=== PATIENT | female | born 1975 | race American Indian/Alaskan Native ===

== ENCOUNTER 2018-10-22 16:21 | Inpatient (IN) | payer MEDICAID, OTHER ==
[2018-10-22] MEDS ORDERED: ZOFRAN IV ONE ×2 (17:36→22:01)
[2018-10-22] MEDS ORDERED: DILAUDID IV ONE ×2 (17:36→22:01)
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
[2018-10-22] MEDS ORDERED: NACL 0.9% 1000 ML 1,000 ML IV ONE (17:51)
[2018-10-22 17:54] LABS: Basophils # (Auto) 0.1 K/mm3 (0.0-0.1); Basophils % (Auto) 0.6 % (0.0-1.8); Eosinophils # (Auto) 0.3 K/mm3 (0.0-0.4); Eosinophils % (Auto) 3.3 % (0.0-4.3); Hematocrit 27.5 % (30.3-42.9); Hemoglobin 8.8 gm/dl (10.1-14.3); Lymphocytes # (Auto) 0.9 K/mm3 (1.2-5.4); Lymphocytes % (Auto) 8.9 % (13.4-35.0); Mean Corpuscular HGB Conc 32 % (30-34); Mean Corpuscular Volume 85 fl (79-97); Monocytes % (Auto) 9.6 % (0.0-7.3); Platelet Count 282 K/mm3 (140-440); Red Blood Count 3.24 M/mm3 (3.65-5.03)
[2018-10-22 18:05] LABS: Alanine Aminotransferase 9 units/L (7-56); Albumin 3.3 g/dL (3.9-5); BUN/Creatinine Ratio 20; Blood Urea Nitrogen 20 mg/dL (7-17); Calcium 9.3 mg/dL (8.4-10.2); Hemolysis Index 4
[2018-10-22 19:32] LABS: Bacteria,Urine 1+ /HPF (Negative); Bilirubin,Urine NEG (Negative); Blood,Urine NEG (Negative); Color,Urine Yellow (Yellow); Mucus,Urine FEW /HPF; Urobilinogen,Urine < 2.0 mg/dL (<2.0)
[2018-10-22] MEDS ORDERED: LEVAQUIN 750MG/150ML 750 MG/150 ML BAG IV ONE (19:38)
--- NOTE | 2018-10-22 20:35 | Cat Scan Report ---
FINAL REPORT EXAM: CT ABDOMEN PELVIS W CON HISTORY: s/p colostomy, cholecystostomy tube. PT WENT IN FOR HYST ANOTHER HOSPITAL, WHILE IN [place], FOU ND LESIONS ON COLON AND PERFORATED HER BOWEL REMOVING. DIDN'T GET HYST. BECAME SEPTIC AND HAD TO GET COLOSTOMY. STILL HAVING ABD PAIN. UNABLE TO TOLERATE PO CONTRAST. TECHNIQUE: CT abdomen and pelvis with intravenous contrast PRIORS: None. FINDINGS: There is left pleural fluid collection. There is some pleural thickening and enhancement present find ings suggest empyema. There is adjacent streaky opacity within the left lower lobe. No acute abnormality identified within the liver spleen or pancreas. There is a surgical drain in the right upper quadrant distal end in the region of the gallbladder fossa. Kidneys demonstrate symmetric contrast enhancement. The adrenal glands are unremarkable there is a ri ght lower quadrant colostomy present No evidence for colonic or small bowel distention There is midline abdominal surgical scar. Within the subcutaneous tissues extending to the peritoneal margin there is a intermediate density collection and small bubbles of air suggestive of abscess. Th ere is adjacent subcutaneous stranding collection extends from the mid to upper abdominal wall to the infraumbilical area measuring 16.1 by 2.8 by 4.1 centimeters. Urinary bladder is unremarkable. Noted are tubal ligation clips of both adnexa. IMPRESSION: Midline abdominal deep subcutaneous collection with small air bubbles suspicious for abscess Surgical during noted in the right upper quadrant Right lower quadrant colostomy Status post tubal ligation Left pleural fluid collection. Findings suggestive of empyema
[2018-10-22] MEDS ORDERED: VANCOMYCIN 2,000 MG in NACL 0.9% 500 ML 500 ML IV ONE (21:19)
--- NOTE | 2018-10-22 22:23 | XRay Report ---
FINAL REPORT EXAM: XR CHEST 1V AP HISTORY: abnl lung findigns of abd ct TECHNIQUE: upright single view chest PRIORS: Correlated with today's earlier CT abdomen and pelvis FINDINGS: Cardiac and mediastinal contours are unremarkable. No focal pulmonary infiltrate is identified. No pleural fluid collection seen. Pulmonary vasculature is unremarkable. Pleural parenchymal changes se en at the left base noted on the recent CT not observed on the AP view obtained IMPRESSION: No acute abnormality identified on the view obtained
--- NOTE | 2018-10-23 00:14 | Cat Scan Report ---
FINAL REPORT PROCEDURE: CT CHEST WO CON TECHNIQUE: Computerized axial tomography of the chest was performed without contrast material. This study is performed without intravenous contrast and the sensitivity for pathology, including neoplasm s, adenopathy, abscess, pulmonary embolism and aortic dissection, is reduced. HISTORY: possible empyema COMPARISON: No prior studies are available for comparison. TECHNICAL QUALITY: Satisfactory. FINDINGS: Heart and pericardium: Normal. Thoracic aorta: Normal. Pulmonary vasculature: Normal. Lymph nodes: No enlarged thoracic lymph nodes. Lungs: Lungs are expanded. There are fibrotic changes versus infiltrates at the left lung base.. Pleural space: There is a small left pleural effusion. There is no specific evidence of empyema. Ther e is no pneumothorax.. Musculoskeletal structures: No significant abnormality. Upper abdominal structures: Images of the upper abdomen demonstrate the percutaneous catheter in the right upper quadrant.. IMPRESSION: The heart size is normal. Lungs are expanded. There are fibrotic changes versus infiltrates at the left lung base.. There is a small left pleural effusion. There is no specific evidence of empyema. There is no pneumot horax.. Images of the upper abdomen demonstrate the percutaneous catheter in the right upper quadrant..
[2018-10-23] MEDS ORDERED: REGLAN IV ONE (00:19)
[2018-10-23] MEDS ORDERED: BENADRYL IV ONE (00:19)
[2018-10-23] MEDS ORDERED: VANCOMYCIN PHARMACY TO DOSE IV SCH (03:00)
[2018-10-23] MEDS ORDERED: ZOSYN/NS 3.375GM/50ML 3.375 GM/50 ML BAG IV SCH (04:00)
[2018-10-23] MEDS: ZOFRAN IV PRN ×2 (05:02→21:55)
[2018-10-23] MEDS: DILAUDID IV PRN ×3 (05:02→21:41)
[2018-10-23] MEDS: FLAGYL 500 MG/100 ML 500 MG/100 ML BAG IV SCH ×3 (05:58→21:46)
[2018-10-23] MEDS ORDERED: VANCOMYCIN 2,000 MG in NACL 0.9% 500 ML 500 ML IV SCH (06:00)
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
[2018-10-23] MEDS: NACL 0.9% 1000 ML 1,000 ML IV SCH (07:57)
[2018-10-23] MEDS ORDERED: FLAGYL 500 MG/100 ML 500 MG/100 ML BAG IV SCH (08:00)
[2018-10-23] MEDS: TYLENOL PO PRN ×2 (08:22→13:20)
--- NOTE | 2018-10-23 09:51 | Progress Note ---
Assessment and Plan Assessment and plan: 42-year-old female patient with multiple medical problems including recent bowel perforation due to attempted hysterectomy, colostomy and cholecystectomy tube placement was admitted with abdominal pain, evaluation revealed abdominal wall abscess, surgery consulted, on empiric antibiotics --Abdominal wall abscess; continue empiric antibiotics, follow cultures Surgery and wound care consulted --History of extensive abdominal surgery, surgical wound infection Follow surgery evaluation and recommendations, wound care and antibiotics --History of colostomy; colostomy care --History of cholecystostomy; supportive care --Urinary tract infection; follow cultures, continue Vanco and Zosyn --Left lower lobe pneumonia; follow blood cultures, IV antibiotics Supportive care --Morbid obesity; BMI 43.4, patient needs weight reduction once medically stable --Mild elevation of lipase/acute pancreatitis; supportive care clear liquids Follow clinically --DVT prophylaxis; Lovenox Plan of care is reviewed with the patient and her nurse Request medical records from [facility] Disposition; follow surgery evaluation and recommendations Medical records to be reviewed [requested from [place]] History Interval history: Patient seen and examined medical records reviewed Admitted with abdominal pain She is slightly better Alert awake oriented 3 Morbidly obese Vital signs noted Hospitalist Physical - Constitutional Vitals: Temp Pulse Resp BP Pulse Ox 98.1 F 87 18 155/91 96 10/23/18 05:21 10/23/18 05:49 10/23/18 05:49 10/23/18 05:21 10/23/18 05:21 General appearance: Present: mild distress, well-nourished, obese (morbidly obese) - EENT Eyes: Present: PERRL, EOM intact - Neck Neck: Present: supple, normal ROM - Respiratory Respiratory effort: normal Respiratory: bilateral: diminished, rhonchi, negative: rales, wheezing - Cardiovascular Rhythm: regular Heart Sounds: Present: S1 & S2 - Extremities Extremities: no ischemia, No edema - Abdominal General gastrointestinal: soft, non-tender, non-distended, normal bowel sounds, other (colostomy in place, gallbladder drain in place, surgical dressing umbilicus area) - Integumentary Integumentary: Present: clear, warm - Psychiatric Psychiatric: appropriate mood/affect, cooperative - Neurologic Neurologic: moves all extremities Results - Labs CBC & Chem 7: 10/22/18 17:40 10/22/18 17:40 Labs: Laboratory Last Values WBC 10.1 K/mm3 (4.5-11.0) 10/22/18 17:40 RBC 3.24 M/mm3 (3.65-5.03) L 10/22/18 17:40 Hgb 8.8 gm/dl (10.1-14.3) L 10/22/18 17:40 Hct 27.5 % (30.3-42.9) L 10/22/18 17:40 MCV 85 fl (79-97) 10/22/18 17:40 MCH 27 pg (28-32) L 10/22/18 17:40 MCHC 32 % (30-34) 10/22/18 17:40 RDW 18.0 % (13.2-15.2) H 10/22/18 17:40 Plt Count 282 K/mm3 (140-440) 10/22/18 17:40 Lymph % (Auto) 8.9 % (13.4-35.0) L 10/22/18 17:40 [place] % (Auto) 9.6 % (0.0-7.3) H 10/22/18 17:40 Eos % (Auto) 3.3 % (0.0-4.3) 10/22/18 17:40 Baso % (Auto) 0.6 % (0.0-1.8) 10/22/18 17:40 Lymph # 0.9 K/mm3 (1.2-5.4) L 10/22/18 17:40 Jerome # 1.0 K/mm3 (0.0-0.8) H 10/22/18 17:40 Eos # 0.3 K/mm3 (0.0-0.4) 10/22/18 17:40 Baso # 0.1 K/mm3 (0.0-0.1) 10/22/18 17:40 Seg Neutrophils % 77.6 % (40.0-70.0) H 10/22/18 17:40 Seg Neutrophils # 7.8 K/mm3 (1.8-7.7) H 10/22/18 17:40 Sodium 134 mmol/L (137-145) L 10/22/18 17:40 Potassium 4.7 mmol/L (3.6-5.0) 10/22/18 17:40 Chloride 103.1 mmol/L (98-107) 10/22/18 17:40 Carbon Dioxide 20 mmol/L (22-30) L 10/22/18 17:40 Anion Gap 16 mmol/L 10/22/18 17:40 BUN 20 mg/dL (7-17) H 10/22/18 17:40 Creatinine 1.0 mg/dL (0.7-1.2) 10/22/18 17:40 Estimated GFR > 60 ml/min 10/22/18 17:40 BUN/Creatinine Ratio 20 % 10/22/18 17:40 Glucose 102 mg/dL (65-100) H 10/22/18 17:40 Calcium 9.3 mg/dL (8.4-10.2) 10/22/18 17:40 Total Bilirubin 0.30 mg/dL (0.1-1.2) 10/22/18 17:40 AST 12 units/L (5-40) 10/22/18 17:40 ALT 9 units/L (7-56) 10/22/18 17:40 Alkaline Phosphatase 90 units/L (35-129) 10/22/18 17:40 Total Protein 8.5 g/dL (6.3-8.2) H 10/22/18 17:40 Albumin 3.3 g/dL (3.9-5) L 10/22/18 17:40 Albumin/Globulin Ratio 0.6 % 10/22/18 17:40 Lipase 94 units/L (13-60) H 10/22/18 17:40 HCG, Qual Negative (Negative) 10/22/18 17:40 Urine Color Yellow (Yellow) 10/22/18 18:55 Urine Turbidity Cloudy (Clear) 10/22/18 18:55 Urine pH 5.0 (5.0-7.0) 10/22/18 18:55 Ur Specific [place] 1.012 (1.003-1.030) 10/22/18 18:55 Urine Protein 30 mg/dl mg/dL (Negative) 10/22/18 18:55 Urine Glucose (UA) Neg mg/dL (Negative) 10/22/18 18:55 Urine Ketones Neg mg/dL (Negative) 10/22/18 18:55 Urine Blood Neg (Negative) 10/22/18 18:55 Urine Nitrite Neg (Negative) 10/22/18 18:55 Urine Bilirubin Neg (Negative) 10/22/18 18:55 Urine Urobilinogen < 2.0 mg/dL (<2.0) 10/22/18 18:55 Ur Leukocyte Esterase Lg (Negative) 10/22/18 18:55 Urine WBC (Auto) 85.0 /HPF (0.0-6.0) H 10/22/18 18:55 Urine RBC (Auto) 19.0 /HPF (0.0-6.0) 10/22/18 18:55 U Epithel Cells (Auto) 12.0 /HPF (0-13.0) 10/22/18 18:55 Urine Bacteria (Auto) 1+ /HPF (Negative) 10/22/18 18:55 Ur Transition Epith Cell 1 /HPF 10/22/18 18:55 Urine Mucus Few /HPF 10/22/18 18:55 Urine Yeast (Budding) 2+ /HPF 10/22/18 18:55
[2018-10-23] MEDS: PEPCID PO SCH ×2 (11:16→21:49)
[2018-10-23] MEDS: VANCOMYCIN 2,000 MG in NACL 0.9% 500 ML 500 ML IV SCH (11:59)
[2018-10-23] MEDS ORDERED: APRESOLINE PO SCH (13:00)
[2018-10-23] MEDS: ZOSYN/NS 4.5GM/100ML 4.5 GM/100 ML VIAL IV SCH ×2 (15:16→21:51)
--- NOTE | 2018-10-23 18:41 | Consultation ---
History of Present Illness Consult date: 10/23/18 Reason for consult: wound care Requesting physician: VENKATA BERGER Chief complaint: drainage from midline wound - History of present illness History of present illness: 42yo F s/p multiple recent operations after suffering a complication during an elective hysterectomy. Patient reports in mid-August, she went for elective minimally invasive hysterectomy in [place]. During that time, they injured the bowel and aborted the case. She returned 2 days later, sepsis. She was taken back to the operating room and found drainage from the bowel injury. A colostomy was performed at that time. She was in ICU for 2 weeks. Thereafter, she went to rehab. At that time, she began have fevers. Workup with a HIDA scan led 2 a drain placement in the gallbladder. She recently left [place] and presented to the emergency room here with back spasms. Workup with CT scan showed a fluid collection in the abdominal wall. Patient denies any fevers, chills, nausea, vomiting. She has been having a small amount of drainage near the umbilicus. The surgeon in [place] said it was nothing to worry about. We are asked to see the patient for this fluid collection. She denies any significant pain in that area. Her doctors advised her that in 3 months. They will take her back to surgery to reconnect her bowel, completely hysterectomy, and remover gallbladder. 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 denies: smoking, alcohol abuse, prescription drug abuse Family history: no significant family history Medications and Allergies Allergies Allergy/AdvReac Type Severity Reaction Status Date / Time lisinopril AdvReac cough Verified 10/22/18 17:36 sea Allergy Severe Angioedema Uncoded 10/23/18 11:10 Home Medications Medication Instructions Recorded Confirmed Last Taken Type Coreg 25 mg PO BID 10/23/18 10/23/18 Unknown History Gabapentin 100 mg PO DAILY 10/23/18 10/23/18 Unknown History Miralax 17 gram PO DAILY 10/23/18 10/23/18 Unknown History Norvasc 10 mg PO DAILY 10/23/18 10/23/18 Unknown History Phenergan TAB 12.5 mg PO Q6HR 10/23/18 10/23/18 Unknown History Sodium Bicarbonate 650 mg PO BID 10/23/18 10/23/18 Unknown History Venlafaxin ER 75 mg PO DAILY 10/23/18 10/23/18 Unknown History hydrALAZINE 50 mg PO TID 10/23/18 10/23/18 Unknown History Active Meds: Active Medications Acetaminophen (Tylenol) 650 mg PO Q4H PRN PRN Reason: Fever >101 Last Admin: 10/23/18 13:20 Dose: 650 mg Documented by: Amlodipine Besylate (Norvasc) 10 mg PO DAILY COUNTS INCLUDE 234 BEDS AT THE [facility] Carvedilol (Coreg) 25 mg PO Q12HR COUNTS INCLUDE 234 BEDS AT THE [facility] Famotidine (Pepcid) 20 mg PO BID COUNTS INCLUDE 234 BEDS AT THE [facility] Last Admin: 10/23/18 11:16 Dose: 20 mg Documented by: Gabapentin (Neurontin) 100 mg PO QDAY COUNTS INCLUDE 234 BEDS AT THE [facility] Hydralazine HCl (Apresoline) 50 mg PO TID COUNTS INCLUDE 234 BEDS AT THE [facility] Hydromorphone HCl (Dilaudid) 0.5 mg IV Q6H PRN PRN Reason: Pain, Moderate (4-6) Last Admin: 10/23/18 11:15 Dose: 0.5 mg Documented by: Vancomycin HCl 2,000 mg/ (Sodium Chloride) 540 mls @ 250 mls/hr IV Q12H COUNTS INCLUDE 234 BEDS AT THE [facility] Last Admin: 10/23/18 11:59 Dose: 250 mls/hr Documented by: Metronidazole (Flagyl 500 Mg/100 Ml) 500 mg in 100 mls @ 100 mls/hr IV Q8H COUNTS INCLUDE 234 BEDS AT THE [facility]; Protocol Last Admin: 10/23/18 17:55 Dose: 100 mls/hr Documented by: Sodium Chloride (Nacl 0.9% 1000 Ml) 1,000 mls @ 100 mls/hr IV DIRECT COUNTS INCLUDE 234 BEDS AT THE [facility] Last Admin: 10/23/18 07:57 Dose: 100 mls/hr Documented by: Piperacillin Sod/Tazobactam Sod (Zosyn/Ns 4.5gm/100ml) 4.5 gm in 100 mls @ 200 mls/hr IV Q8HR COUNTS INCLUDE 234 BEDS AT THE [facility] Last Admin: 10/23/18 15:16 Dose: 200 mls/hr Documented by: Ondansetron HCl (Zofran) 4 mg IV Q8H PRN PRN Reason: Nausea And Vomiting Last Admin: 10/23/18 05:02 Dose: 4 mg Documented by: Venlafaxine HCl (Effexor Xr) 75 mg PO QDAY COUNTS INCLUDE 234 BEDS AT THE [facility] Review of Systems - Constitutional chronic headaches, no fever, no chills - EENT Ears, nose, mouth and throat: headache - Cardiovascular no chest pain, no shortness of breath - Respiratory no cough, no shortness of breath - Gastrointestinal abdominal pain (periodic), no nausea, no vomiting - Genitourinary Genitourinary: dysuria - Muskuloskeletal low back pain, muscle cramps - Integumentary wounds Exam Vital Signs Pulse Resp 103 H 18 10/22/18 16:35 10/22/18 16:35 - General physical appearance Positive: no distress, no pain, obese, other (pleasant. Does not appear toxic) - Eyes Positive: normal occular movement. Negative: icteric - Respiratory Positive: normal expansion, normal respiratory effort - Abdomen Abdomen: Present: soft, wound (small, draining wound superior to umbo), surgical scars, other (colostomy on right. drainage bag for gallbladder). Absent: tender, distended, masses, guarding, rigid - Integumentary no rash, no growths, no abnormal pigmentation - Neurologic Neurologic: alert and oriented to time, place and person, motor strength and sensation are grossly intact - Psychiatric Psychiatric: appropriate mood/affect, intact judgment & insight Results - Labs 10/22/18 17:40 10/22/18 17:40 Abnormal lab results 10/22/18 Range/Units 18:55 Urine WBC (Auto) 85.0 H (0.0-6.0) /HPF - Imaging CT scan - abdomen: report reviewed, image reviewed CT scan - pelvis: report reviewed, image reviewed Assessment and Plan - Patient Problems (1) Abdominal wall fluid collections Current Visit: Yes Status: Acute Plan to address problem: Patient is stable. Incision and drainage was performed at the bedside. Fluid that was draining seem to be more liquefied fat. There was no foul odor. It was not thick. Cultures were taken. It was thoroughly irrigated and suctioned out and then wound was packed. We'll do routine wound care at this point. If the wound needs to be enlarged, then we will do this at the bedside. I will ask wound care to take over the management of this wound. Please call with questions. time=60min (2) Cholecystostomy care Current Visit: Yes Status: Acute Plan to address problem: Pt stable. No intervention is required at this time. Would continue routine drainage. Reevaluate the gallbladder and the biliary tree in November.
[2018-10-23] MEDS ORDERED: FIORICET PO PRN (18:57)
[2018-10-23] MEDS ORDERED: NON-FORMULARY (Hydralazine 50 MG) PO SCH (20:00)
--- NOTE | 2018-10-23 21:37 | Procedure Note ---
Date of procedure: 10/23/18 Pre-op diagnosis: abdominal wall fluid collection Post-op diagnosis: same Procedure: Procedure, risks, benefits discussed. Consent obtained. Timeout done. Wound probed with CTA. incision made along old incision. thin, yellowish fluid drained. Cultures taken. Wound irrigated with saline. Suctioned out. Packed with iodoform gauze. Pt tolerated well. No complications. Findings: thin, yellow fluid. Does not appear purulent. No odor. Anesthesia: none Surgeon: JAVON BENNETT Estimated blood loss: minimal Pathology: list (culture swabs) Specimen disposition: to lab Condition: stable Disposition: floor
[2018-10-23] MEDS: APRESOLINE PO SCH (21:47)
[2018-10-23] MEDS: COREG PO SCH (21:49)
[2018-10-23] MEDS ORDERED: NON-FORMULARY (Coreg 25 MG) PO SCH (22:00)
[2018-10-24] MEDS: VANCOMYCIN 2,000 MG in NACL 0.9% 500 ML 500 ML IV SCH ×2 (00:12→11:36)
[2018-10-24] MEDS: DILAUDID IV PRN ×3 (03:18→16:51)
[2018-10-24] MEDS: ZOSYN/NS 4.5GM/100ML 4.5 GM/100 ML VIAL IV SCH ×3 (05:33→22:21)
[2018-10-24] MEDS: FLAGYL 500 MG/100 ML 500 MG/100 ML BAG IV SCH ×3 (05:33→22:24)
[2018-10-24 06:26] LABS: Basophils # (Auto) 0.1 K/mm3 (0.0-0.1); Basophils % (Auto) 0.7 % (0.0-1.8); Eosinophils # (Auto) 0.5 K/mm3 (0.0-0.4); Eosinophils % (Auto) 6.3 % (0.0-4.3); Hematocrit 26.6 % (30.3-42.9); Hemoglobin 8.6 gm/dl (10.1-14.3); Lymphocytes # (Auto) 0.9 K/mm3 (1.2-5.4); Lymphocytes % (Auto) 10.7 % (13.4-35.0); Mean Corpuscular HGB Conc 32 % (30-34); Mean Corpuscular Volume 86 fl (79-97); Monocytes # (Auto) 0.9 K/mm3 (0.0-0.8); Monocytes % (Auto) 10.6 % (0.0-7.3); Platelet Count 313 K/mm3 (140-440); Red Cell Distribution Width 18.7 % (13.2-15.2)
[2018-10-24 06:48] LABS: Alanine Aminotransferase 7 units/L (7-56); BUN/Creatinine Ratio 10; Blood Urea Nitrogen 11 mg/dL (7-17); Calcium 8.9 mg/dL (8.4-10.2); Hemolysis Index 0
[2018-10-24] MEDS: ZOFRAN IV PRN ×3 (06:49→22:19)
[2018-10-24] MEDS: NORVASC PO SCH (09:33)
[2018-10-24] MEDS: NEURONTIN PO SCH (09:33)
[2018-10-24] MEDS: PEPCID PO SCH ×2 (09:33→22:29)
[2018-10-24] MEDS: APRESOLINE PO SCH ×3 (09:35→22:27)
[2018-10-24] MEDS: COREG PO SCH ×2 (09:36→22:32)
[2018-10-24] MEDS: EFFEXOR XR PO SCH (09:46)
[2018-10-24] MEDS ORDERED: [UNRECOGNIZED DRUG - OTHER] PO SCH (10:00)
[2018-10-24] MEDS ORDERED: NON-FORMULARY (Gabapentin 100 MG) PO SCH (10:00)
[2018-10-24] MEDS ORDERED: NON-FORMULARY (Norvasc 10 MG) PO SCH (10:00)
--- NOTE | 2018-10-24 15:27 | Progress Note ---
Assessment and Plan Assessment and plan: Patient is a 42-year-old woman with a history of bowel perforation due to attempted hysterectomy resulting in colostomy and cholecystectomy tube placement in [place], [place] who presented to [facility] ED with abdominal pains. She was found to have abdominal wall abscess, surgery consulted --Abdominal wall abscess with sepsis, poa, s/p excisional debridement; continue empiric antibiotics, follow cultures Surgery and wound care consulted --History of extensive abdominal surgery, surgical wound infection Follow surgery evaluation and recommendations, wound care and antibiotics --History of colostomy; colostomy care --History of cholecystostomy; supportive care --Urinary tract infection; follow cultures, continue Vanco and Zosyn --Left lower lobe pneumonia; follow blood cultures, IV antibiotics Supportive care --Morbid obesity; BMI 43.4, patient needs weight reduction once medically stable --Mild elevation of lipase/acute pancreatitis; supportive care clear liquids Follow clinically --DVT prophylaxis; Lovenox Plan of care is reviewed with the patient and her nurse Request medical records from [facility] Disposition; follow surgery evaluation and recommendations History Interval history: Patient was seen and examined. Follow-up on current diagnosis. Overnight uneventful. Patient denies any chest pain, shortness breath, nausea/vomiting or severe headaches. Imaging, nursing note, chart, labs and old chart reviewed. Discussed with patient. Gen: WDWN, NAD, Awake, Alert, Orientated HEENT: NCAT, EOMI, PERRL, OP Clear Neck: supple, no adenopathy, no thyromegaly, no JVD CVS/Heart: RRR, normal S1S2, pulses present bilaterally Chest/Lungs: CTA B, Symmetrical chest expansion, good air entry bilaterally GI/Abdomen: soft, NTND, good bowel sounds, no guarding or rebound /Bladder: no suprapubic tenderness, no CVA or paraspinal tenderness Extermity/Skin: no c/c/e, no obvious rash MSK: FROM x 4 Neuro: CN 2-12 grossly intact, no new focal deficits Psych: calm Hospitalist Physical - Constitutional Vitals: Temp Pulse Resp BP Pulse Ox 97.7 F 69 18 131/65 98 10/24/18 12:16 10/24/18 13:39 10/24/18 12:16 10/24/18 13:39 10/24/18 12:16 General appearance: Present: mild distress, well-nourished, obese (morbidly obese) Results - Labs CBC & Chem 7: 10/24/18 05:52 10/24/18 05:52 Labs: Laboratory Last Values WBC 8.2 K/mm3 (4.5-11.0) 10/24/18 05:52 RBC 3.10 M/mm3 (3.65-5.03) L 10/24/18 05:52 Hgb 8.6 gm/dl (10.1-14.3) L 10/24/18 05:52 Hct 26.6 % (30.3-42.9) L 10/24/18 05:52 MCV 86 fl (79-97) 10/24/18 05:52 MCH 28 pg (28-32) 10/24/18 05:52 MCHC 32 % (30-34) 10/24/18 05:52 RDW 18.7 % (13.2-15.2) H 10/24/18 05:52 Plt Count 313 K/mm3 (140-440) 10/24/18 05:52 Lymph % (Auto) 10.7 % (13.4-35.0) L 10/24/18 05:52 [place] % (Auto) 10.6 % (0.0-7.3) H 10/24/18 05:52 Eos % (Auto) 6.3 % (0.0-4.3) H 10/24/18 05:52 Baso % (Auto) 0.7 % (0.0-1.8) 10/24/18 05:52 Lymph # 0.9 K/mm3 (1.2-5.4) L 10/24/18 05:52 [place] # 0.9 K/mm3 (0.0-0.8) H 10/24/18 05:52 Eos # 0.5 K/mm3 (0.0-0.4) H 10/24/18 05:52 Baso # 0.1 K/mm3 (0.0-0.1) 10/24/18 05:52 Seg Neutrophils % 71.7 % (40.0-70.0) H 10/24/18 05:52 Seg Neutrophils # 5.9 K/mm3 (1.8-7.7) 10/24/18 05:52 Sodium 138 mmol/L (137-145) 10/24/18 05:52 Potassium 4.6 mmol/L (3.6-5.0) 10/24/18 05:52 Chloride 104.2 mmol/L (98-107) 10/24/18 05:52 Carbon Dioxide 20 mmol/L (22-30) L 10/24/18 05:52 Anion Gap 18 mmol/L 10/24/18 05:52 BUN 11 mg/dL (7-17) 10/24/18 05:52 Creatinine 1.1 mg/dL (0.7-1.2) 10/24/18 05:52 Estimated GFR > 60 ml/min 10/24/18 05:52 BUN/Creatinine Ratio 10 % 10/24/18 05:52 Glucose 112 mg/dL (65-100) H 10/24/18 05:52 Calcium 8.9 mg/dL (8.4-10.2) 10/24/18 05:52 Phosphorus 5.10 mg/dL (2.5-4.5) H 10/24/18 05:52 Magnesium 1.50 mg/dL (1.7-2.3) L 10/24/18 05:52 Total Bilirubin 0.30 mg/dL (0.1-1.2) 10/24/18 05:52 AST 8 units/L (5-40) 10/24/18 05:52 ALT 7 units/L (7-56) 10/24/18 05:52 Alkaline Phosphatase 88 units/L (35-129) 10/24/18 05:52 Total Protein 7.4 g/dL (6.3-8.2) 10/24/18 05:52 Albumin 3.0 g/dL (3.9-5) L 10/24/18 05:52 Albumin/Globulin Ratio 0.7 % 10/24/18 05:52 Lipase 94 units/L (13-60) H 10/22/18 17:40 HCG, Qual Negative (Negative) 10/22/18 17:40 Urine Color Yellow (Yellow) 10/22/18 18:55 Urine Turbidity Cloudy (Clear) 10/22/18 18:55 Urine pH 5.0 (5.0-7.0) 10/22/18 18:55 Ur Specific [place] 1.012 (1.003-1.030) 10/22/18 18:55 Urine Protein 30 mg/dl mg/dL (Negative) 10/22/18 18:55 Urine Glucose (UA) Neg mg/dL (Negative) 10/22/18 18:55 Urine Ketones Neg mg/dL (Negative) 10/22/18 18:55 Urine Blood Neg (Negative) 10/22/18 18:55 Urine Nitrite Neg (Negative) 10/22/18 18:55 Urine Bilirubin Neg (Negative) 10/22/18 18:55 Urine Urobilinogen < 2.0 mg/dL (<2.0) 10/22/18 18:55 Ur Leukocyte Esterase Lg (Negative) 10/22/18 18:55 Urine WBC (Auto) 85.0 /HPF (0.0-6.0) H 10/22/18 18:55 Urine RBC (Auto) 19.0 /HPF (0.0-6.0) 10/22/18 18:55 U Epithel Cells (Auto) 12.0 /HPF (0-13.0) 10/22/18 18:55 Urine Bacteria (Auto) 1+ /HPF (Negative) 10/22/18 18:55 Ur Transition Epith Cell 1 /HPF 10/22/18 18:55 Urine Mucus Few /HPF 10/22/18 18:55 Urine Yeast (Budding) 2+ /HPF 10/22/18 18:55
--- NOTE | 2018-10-24 17:30 | Progress Note ---
Assessment and Plan - Patient Problems (1) Abdominal wall fluid collections Current Visit: Yes Status: Acute Plan to address problem: Patient is stable. s/p I&D - 10/23/18 - I will talk to wound care and try to come up with a strategy to isolate the midline wound from the colostomy drainage. Continue routine wound care and ostomy care for now. No signs of infection on initial report from culture swabs. No need for antibiotics for midline abdominal fluid collection. It is probably residual fluid and liquified fat from surgery. Please call with questions. time==10min (2) Cholecystostomy care Current Visit: Yes Status: Acute Plan to address problem: Pt stable. No intervention is required at this time. Would continue routine drainage. Reevaluate the gallbladder and the biliary tree in November. Subjective Date of service: 10/24/18 Patient Reports: Positive: other (patient concerned about ostomy drainage spilling into midline wound) Objective Vital Signs - 12hr 10/24/18 10/24/18 10/24/18 09:36 12:16 13:39 Temperature 97.7 F Pulse Rate 87 68 69 Respiratory 18 Rate Blood Pressure 156/85 108/45 Blood Pressure 131/65 [Right] O2 Sat by Pulse 98 Oximetry - General physical appearance no distress, no pain - Respiratory normal expansion, normal respiratory effort - Abdomen soft, not tender, wound (Iodoform packing in place. Ostomy contents sitting in umbo. ) - Labs 10/24/18 05:52 10/24/18 05:52 Diabetes panel 10/24/18 Range/Units 05:52 Sodium 138 (137-145) mmol/L Potassium 4.6 (3.6-5.0) mmol/L Chloride 104.2 (98-107) mmol/L Carbon Dioxide 20 L (22-30) mmol/L BUN 11 (7-17) mg/dL Creatinine 1.1 (0.7-1.2) mg/dL Glucose 112 H (65-100) mg/dL Calcium 8.9 (8.4-10.2) mg/dL AST 8 (5-40) units/L ALT 7 (7-56) units/L Alkaline Phosphatase 88 (35-129) units/L Total Protein 7.4 (6.3-8.2) g/dL Albumin 3.0 L (3.9-5) g/dL Calcium panel 10/24/18 Range/Units 05:52 Calcium 8.9 (8.4-10.2) mg/dL Phosphorus 5.10 H (2.5-4.5) mg/dL Albumin 3.0 L (3.9-5) g/dL Pituitary panel 10/24/18 Range/Units 05:52 Sodium 138 (137-145) mmol/L Potassium 4.6 (3.6-5.0) mmol/L Chloride 104.2 (98-107) mmol/L Carbon Dioxide 20 L (22-30) mmol/L BUN 11 (7-17) mg/dL Creatinine 1.1 (0.7-1.2) mg/dL Glucose 112 H (65-100) mg/dL Calcium 8.9 (8.4-10.2) mg/dL Adrenal panel 10/24/18 Range/Units 05:52 Sodium 138 (137-145) mmol/L Potassium 4.6 (3.6-5.0) mmol/L Chloride 104.2 (98-107) mmol/L Carbon Dioxide 20 L (22-30) mmol/L BUN 11 (7-17) mg/dL Creatinine 1.1 (0.7-1.2) mg/dL Glucose 112 H (65-100) mg/dL Calcium 8.9 (8.4-10.2) mg/dL Total Bilirubin 0.30 (0.1-1.2) mg/dL AST 8 (5-40) units/L ALT 7 (7-56) units/L Alkaline Phosphatase 88 (35-129) units/L Total Protein 7.4 (6.3-8.2) g/dL Albumin 3.0 L (3.9-5) g/dL
[2018-10-24] MEDS: NACL 0.9% 1000 ML 1,000 ML IV SCH (18:23)
[2018-10-25] MEDS: VANCOMYCIN 2,000 MG in NACL 0.9% 500 ML 500 ML IV SCH ×2 (01:00→11:28)
[2018-10-25] MEDS: DILAUDID IV PRN ×2 (06:27→11:28)
[2018-10-25] MEDS: FLAGYL 500 MG/100 ML 500 MG/100 ML BAG IV SCH ×2 (06:35→14:00)
[2018-10-25] MEDS: ZOSYN/NS 4.5GM/100ML 4.5 GM/100 ML VIAL IV SCH ×2 (06:35→14:52)
[2018-10-25] MEDS: APRESOLINE PO SCH ×2 (08:45→14:54)
[2018-10-25] MEDS: EFFEXOR XR PO SCH (10:13)
[2018-10-25] MEDS: NEURONTIN PO SCH (10:13)
[2018-10-25] MEDS: COREG PO SCH (10:13)
[2018-10-25] MEDS: NORVASC PO SCH (10:14)
[2018-10-25] MEDS: PEPCID PO SCH (10:14)
[2018-10-25] MEDS: NACL 0.9% 1000 ML 1,000 ML IV SCH (10:32)
--- NOTE | 2018-10-25 10:39 | Event Note ---
Date: 10/25/18 I spoke with wound care nurse this morning about the difficulties in controlling the drainage. She will try to put an ostomy bag over the midline wound to keep the 2 drainage sites separate.
--- NOTE | 2018-10-25 16:46 | Discharge Summary ---
Providers - Providers Date of Admission: 10/23/18 03:02 Date of discharge: 10/25/18 Attending physician: ILANA KHAN 10/22/18 21:15 Consult to Physician [CONS] Urgent Comment: Consulting Provider: JAVON BENNETT Physician Instructions: Reason For Exam: abd fluid collection, post op 10/23/18 08:05 Consult to Wound/ET Nurse [CONS] Urgent Reason For Exam: wound eval Primary care physician: CHAKA LINN Hospitalization Condition: Stable Hospital course: Patient is a 42-year-old woman with a history of bowel perforation due to attempted hysterectomy resulting in colostomy and cholecystectomy tube placement in [place], [place] who presented to [facility] ED with abdominal pains. She was found to have abdominal wall abscess, surgery consulted * CT abd/pelvis with contrast IMPRESSION: Midline abdominal deep subcutaneous collection with small air bubbles suspicious for abscess Surgical during noted in the right upper quadrant Right lower quadrant colostomy Status post tubal ligation Left pleural fluid collection. Findings suggestive of empyema * CT chest wo contrast IMPRESSION: The heart size is normal. Lungs are expanded. There are fibrotic changes versus infiltrates at the left lung base.. There is a small left pleural effusion. There is no specific evidence of empyema. There is no pneumothorax.. Images of the upper abdomen demonstrate the percutaneous catheter in the right upper quadrant.. Date of procedure: 10/23/18 Pre-op diagnosis: abdominal wall fluid collection Post-op diagnosis: same Procedure: Procedure, risks, benefits discussed. Consent obtained. Timeout done. Wound probed with CTA. incision made along old incision. thin, yellowish fluid drained. Cultures taken. Wound irrigated with saline. Suctioned out. Packed with iodoform gauze. Pt tolerated well. No complications. Findings: thin, yellow fluid. Does not appear purulent. No odor. Anesthesia: none Surgeon: JAVON BENNETT Estimated blood loss: minimal Pathology: list (culture swabs) Specimen disposition: to lab Condition: stable Disposition: floor --Abdominal wall phelgmon with cellulitis and sepsis, poa, s/p excisional debridement; continue empiric antibiotics, follow cultures were negative --Left lower lobe pneumonia; treated with antibiotics --History of extensive abdominal surgery, surgical wound infection, Follow surgery evaluation and recommendations, wound care and antibiotics --History of colostomy; colostomy care --History of cholecystostomy; supportive care --Urinary tract infection; treated --Morbid obesity; BMI 44.4, patient needs weight reduction once medically stable --Mild elevation of lipase/acute pancreatitis; supportive care clear liquids Disposition: [id number] HOME UNDER [facility] Time spent for discharge: 35 minutes Core Measure Documentation - Palliative Care Palliative Care/ Comfort Measures: Not Applicable - Core Measures Any of the following diagnoses?: none - VTE Discharge Requirements Deep Vein Thrombosis/Pulmonary Embolism Present on Admission: No Has pt received <5 days of overlap therapy or INR<2.0: No Anticoagulant overlap therapy prescribed at discharge: No Contraindication No Overlap Therapy order at DC: Not Indicated Exam - Physical Exam Narrative exam: Gen: WDWN, NAD, Awake, Alert, Orientated x3 bmi 44.3 HEENT: NCAT, EOMI, PERRL, OP Clear Neck: supple, no adenopathy, no thyromegaly, no JVD CVS/Heart: RRR, normal S1S2, pulses present bilaterally Chest/Lungs: CTA B, Symmetrical chest expansion, good air entry bilaterally GI/Abdomen: soft, right colostomy, and umbilical hole, see photos /Bladder: no suprapubic tenderness, no CVA or paraspinal tenderness Extermity/Skin: no c/c/e, no obvious rash MSK: FROM x 4 Neuro: CN 2-12 grossly intact, no new focal deficits Psych: calm - Constitutional Vitals: Temp Pulse Resp BP Pulse Ox 98.6 F 70 18 126/55 95 10/25/18 12:10 10/25/18 12:10 10/25/18 12:10 10/25/18 12:10 10/25/18 12:10 Plan Activity: other (no strenous activity until cleared by PCP) Diet: low salt Wound: per your surgeon's advice, per wound nurse instructions Special Instructions: home health RN Follow up with: CHAKA LINN [Primary Care Provider] - 3-5 Days JAVON BENNETT MD [Staff Physician] - 7 Days Wound care, clinic at [facility] [Other] - 7 Days Prescriptions: amLODIPine [Norvasc] 10 mg PO DAILY #30 tablet Butalb/Acetamin/Caff 50-325-40 [Fioricet] 1 tab PO Q4H PRN #10 tablet PRN Reason: Headache Carvedilol [Coreg] 25 mg PO Q12HR #60 tablet Famotidine [Pepcid] 20 mg PO BID #20 tablet Gabapentin [Neurontin] 100 mg PO QDAY #30 capsule hydrALAZINE [Apresoline TAB] 50 mg PO TID #90 tab Venlafaxine Xr [Effexor XR] 75 mg PO QDAY #30 capsule
[2018-10-25 18:26] VITALS: BP 135/64
== END 2018-10-25 23:09 | disposition home health service (06) | DRG 853 ==
LOC: EEVIPCON 16:21 → ED 16:21 → 3A 10-23 03:02
PROVIDERS: ADMIT Internal Medicine; ATTEND Internal Medicine
PROC: 0J980ZZ Drainage of Abdomen Subcutaneous Tissue and Fascia, Open Approach (ICD-10-PCS; principal; 2018-10-23)
DX: A41.9 Sepsis, unspecified organism (principal); K85.90 Acute pancreatitis without necrosis or infection, unspecified; J18.1 Lobar pneumonia, unspecified organism; T81.41XA Infection following a procedure, superficial incisional surgical site, initial encounter; L02.211 Cutaneous abscess of abdominal wall; N39.0 Urinary tract infection, site not specified; E66.01 Morbid (severe) obesity due to excess calories; G43.909 Migraine, unspecified, not intractable, without status migrainosus; Y83.8 Other surgical procedures as the cause of abnormal reaction of the patient, or of later complication, without mention of misadventure at the time of the procedure; Z96.89 Presence of other specified functional implants; Z68.41 Body mass index [BMI] 40.0-44.9, adult; Z93.3 Colostomy status; Z71.3 Dietary counseling and surveillance; Z88.6 Allergy status to analgesic agent; Z90.49 Acquired absence of other specified parts of digestive tract; Z79.899 Other long term (current) drug therapy; Y92.89 Other specified places as the place of occurrence of the external cause
CPT/HCPCS: 36415; 71045; 71250; 74177; 80053; 81001; 83690; 83735; 84100; 84703; 85025; 87040; 87086; 87116; G0378; J1170; J1200; J1956; J2405; J2543; J2765; J3370; J7030; J7040; Q9967

== ENCOUNTER 2018-10-30 13:06 | Outpatient (CLI) | payer OTHER, MEDICAID ==
[2018-10-30] MEDS ORDERED: AD OINTMENT TP PRN (13:18)
[2018-10-30] MEDS ORDERED: XYLOCAINE TOPICAL 4% TP ONE (13:18)
== END 2018-10-30 13:07 | disposition home or self-care (01) ==
LOC: WOUND 13:06
PROVIDERS: ATTEND Surgery
DX: K94.09 Other complications of colostomy (principal); I10 Essential (primary) hypertension
CPT/HCPCS: 99215; G0463

== ENCOUNTER 2018-11-17 14:07 | Inpatient (IN) | payer MEDICAID, OTHER ==
--- NOTE | 2018-11-17 14:19 | Emergency Department Report ---
Chief Complaint: Abdominal Pain Stated Complaint: PAIN/DIZZY Time Seen by Provider: 11/17/18 14:16 - HPI History of Present Illness: ALLERGY LATEX SEAFOOD LISINOPRIL POST OP 12-18 WENT TO OR AND WAS NOT ABLE TO DO HYSTERECTOMY- ENDED UP WITH DRAIN IN RUQ AND COLOSTOMY R SIDE PAIN, UNDER R BREAST STARTED LAST PM THEN THIS AM HER T TUBE FELL OUT PT MOANING IN PAIN NO FEVER SURGERY DONE OUT OF TOWN PLANNED REVERSAL OF COLOSTOMY WITH HYSTERECTOMY AND CHOLEY PT TO MAIN ER FOR EVAL RX- SEE THE BAG PT HAS MSE COMPLETED CN IN ER PHONED 1410 MSE screening note: Focused history and physical exam performed. Due to findings the following was ordered: ED Disposition for MSE Condition: Stable Instructions: Abdominal Pain (ED)
[2018-11-17] MEDS ORDERED: NACL 0.9% 500 ML 500 ML IV ONE (14:33)
[2018-11-17] MEDS ORDERED: SUBLIMAZE IV ONE ×2 (14:33→17:28)
--- NOTE | 2018-11-17 14:34 | Emergency Department Report ---
ED General Adult HPI - General Chief complaint: Abdominal Pain Stated complaint: PAIN/DIZZY Time Seen by Provider: 11/17/18 14:16 Source: patient, RN notes reviewed, old records reviewed Mode of arrival: Wheelchair Limitations: No Limitations - History of Present Illness Initial comments: This is a 42-year-old female. The patient has a complicated past medical history, including renal insufficiency, indwelling cholecystostomy tube, and ostomy. Please see her recent discharge summary. Today, the patient presents to the emergency room for broken cholecystostomy tube, acute on chronic abdominal pain, skin excoriations on anterior abdominal wall, and sensation of lightheadedness. The symptoms are constant, did not radiate anywhere, worsen with palpation and decreased with rest. The sensation of lightheadedness has now resolved. The patient denies headache, neck pain, chest pain, new or different shortness of breath, leg pain, leg swelling, urinary symptoms. -: Gradual Location: back, abdomen Severity scale (0 -10): 8 Quality: aching Consistency: constant Improves with: other Worsens with: other - Related Data Home Medications Medication Instructions Recorded Confirmed Last Taken Sodium Bicarbonate 650 mg PO BID 10/23/18 11/06/18 Unknown Previous Rx's Medication Instructions Recorded Last Taken Type Acetaminophen [Acetaminophen TAB] 650 mg PO Q4H PRN #15 tablet 10/25/18 Unknown Rx Butalb/Acetamin/Caff 50-325-40 1 tab PO Q4H PRN #10 tablet 10/25/18 Unknown Rx [Fioricet] Carvedilol [Coreg] 25 mg PO Q12HR #60 tablet 10/25/18 Unknown Rx Famotidine [Pepcid] 20 mg PO BID #20 tablet 10/25/18 Unknown Rx Gabapentin [Neurontin] 100 mg PO QDAY #30 capsule 10/25/18 Unknown Rx Venlafaxine Xr [Effexor XR] 75 mg PO QDAY #30 capsule 10/25/18 Unknown Rx amLODIPine [Norvasc] 10 mg PO DAILY #30 tablet 10/25/18 Unknown Rx Chlorthalidone [Thalitone] 25 mg PO QDAY #30 tablet 11/09/18 Unknown Rx Loperamide [Imodium] 4 mg PO QID #120 capsule 11/09/18 Unknown Rx Losartan [Cozaar] 50 mg PO QDAY #30 tablet 11/09/18 Unknown Rx Ondansetron [Zofran Odt] 4 mg PO Q8HR #30 tab.rapdis 11/09/18 Unknown Rx hydrOXYzine HCL [Atarax] 25 mg PO Q6H PRN #30 tablet 11/09/18 Unknown Rx traMADol [Ultram] 50 mg PO Q6HR PRN #14 tablet 11/09/18 Unknown Rx Allergies Allergy/AdvReac Type Severity Reaction Status Date / Time latex Allergy Unknown Verified 11/17/18 14:17 lisinopril AdvReac cough Verified 10/22/18 17:36 sea Allergy Severe Angioedema Uncoded 10/23/18 11:10 ED Review of Systems ROS: Stated complaint: PAIN/DIZZY Other details as noted in HPI Constitutional: malaise. denies: fever ENT: denies: epistaxis Respiratory: denies: cough, wheezing Cardiovascular: syncope (near syncope, now resolved) Gastrointestinal: abdominal pain Genitourinary: denies: dysuria Musculoskeletal: back pain Skin: lesions Neurological: weakness Psychiatric: anxiety ED Past Medical Hx - Past Medical History Previous Medical History?: Yes Hx Hypertension: Yes Hx CVA: No Hx Heart Attack/AMI: No Hx Congestive Heart Failure: No Hx Diabetes: No Hx Deep Vein Thrombosis: No Hx Pulmonary Embolism: No Hx GERD: Yes Hx Liver Disease: No Hx Renal Disease: No Hx Sickle Cell Disease: No Hx Arthritis: No Hx Headaches / Migraines: Yes Hx Seizures: No Hx Kidney Stones: No Hx Psychiatric Treatment: No Hx Asthma: No Hx COPD: No Hx Tuberculosis: No Hx Dementia: No Hx HIV: No - Surgical History Past Surgical History?: Yes Hx Coronary Stent: No Hx Open Heart Surgery: No Hx Pacemaker: No Hx Internal Defibrillator: No Hx Cholecystectomy: Yes (current) Hx Appendectomy: No Hx Breast Surgery: No Additional Surgical History: 4 . 1999, 2008, 2015, 2017. left bunion removal. 1990, Hysterectomy with complication, bowel leakage. August 2018. Was D/C from [facility] 10/21/18 - Social History Smoking Status: Never Smoker Substance Use Type: None - Medications Home Medications: Home Medications Medication Instructions Recorded Confirmed Last Taken Type Sodium Bicarbonate 650 mg PO BID 10/23/18 11/06/18 Unknown History Acetaminophen [Acetaminophen TAB] 650 mg PO Q4H PRN #15 tablet 10/25/18 11/06/18 Unknown Rx Butalb/Acetamin/Caff 50-325-40 1 tab PO Q4H PRN #10 tablet 10/25/18 11/06/18 Unknown Rx [Fioricet] Carvedilol [Coreg] 25 mg PO Q12HR #60 tablet 10/25/18 11/06/18 Unknown Rx Famotidine [Pepcid] 20 mg PO BID #20 tablet 10/25/18 11/06/18 Unknown Rx Gabapentin [Neurontin] 100 mg PO QDAY #30 capsule 10/25/18 11/06/18 Unknown Rx Venlafaxine Xr [Effexor XR] 75 mg PO QDAY #30 capsule 10/25/18 11/06/18 Unknown Rx amLODIPine [Norvasc] 10 mg PO DAILY #30 tablet 10/25/18 11/06/18 Unknown Rx Chlorthalidone [Thalitone] 25 mg PO QDAY #30 tablet 11/09/18 Unknown Rx Loperamide [Imodium] 4 mg PO QID #120 capsule 11/09/18 Unknown Rx Losartan [Cozaar] 50 mg PO QDAY #30 tablet 11/09/18 Unknown Rx Ondansetron [Zofran Odt] 4 mg PO Q8HR #30 tab.rapdis 11/09/18 Unknown Rx hydrOXYzine HCL [Atarax] 25 mg PO Q6H PRN #30 tablet 11/09/18 Unknown Rx traMADol [Ultram] 50 mg PO Q6HR PRN #14 tablet 11/09/18 Unknown Rx ED Physical Exam - General Limitations: No Limitations General appearance: alert, in no apparent distress, anxious, obese - Head Head exam: Present: atraumatic, normocephalic - Eye Eye exam: Present: normal appearance, EOMI. Absent: nystagmus - ENT ENT exam: Present: normal exam, normal orophraynx, mucous membranes moist, other - Neck Neck exam: Present: normal inspection, full ROM. Absent: tenderness, m eningismus - Respiratory Respiratory exam: Present: normal lung sounds bilaterally. Absent: respiratory distress - Cardiovascular Cardiovascular Exam: Present: regular rate, normal rhythm, normal heart sounds. Absent: bradycardia, tachycardia, irregular rhythm, systolic murmur, diastolic murmur, rubs, gallop - GI/Abdominal GI/Abdominal exam: Present: soft, tenderness, other (broken cholecystostomy tube noted in the right upper quadrant. Anterior lower abdominal skin macerations and excoriations are reviewed and appreciated. There is mild diffuse lower abdominal tenderness. There is no redness, pus or streaking. Ostomy tube noted.). Absent: distended, guarding, rebound, rigid, pulsatile mass - Extremities Exam Extremities exam: Present: normal inspection, full ROM, other (2+ pulses noted in the bilateral upper, lower extremities. Compartments soft. No long bony tenderness. The pelvis is stable.). Absent: calf tenderness - Back Exam Back exam: Present: normal inspection, full ROM, CVA tenderness (R). Absent: tenderness, CVA tenderness (L) - Neurological Exam Neurological exam: Present: alert, oriented X3, CN II-XII intact, other (Extraocular movements intact. Tongue midline. No facial droop. Facial sensation intact to light touch in the V1, V2, V3 distribution bilaterally. 5 and 5 strength in 4 extremities.. Sensation is intact to light touch in 4 extremities.). Absent: motor sensory deficit - Psychiatric Psychiatric exam: Present: normal affect, normal mood - Skin Skin exam: Present: warm, dry, intact, normal color. Absent: rash ED Course Vital Signs 11/17/18 11/17/18 11/17/18 14:17 14:48 15:21 Temperature 97.9 F Pulse Rate 81 75 Respiratory 20 24 Rate Blood Pressure 125/74 121/39 O2 Sat by Pulse 100 99 100 Oximetry 11/17/18 15:30 Temperature Pulse Rate 75 Respiratory 22 Rate Blood Pressure 118/54 O2 Sat by Pulse 100 Oximetry - Reevaluation(s) Reevaluation #1: 11/17/18 16:24 Differential diagnosis, including not limited to: Acute on chronic functional abdominal pain, constipation, intra-abdominal abscess, urinary tract infection, broken cholecystostomy tube, orthostasis, vagal event, structural cardiac disease, pulmonary embolus Assessment and plan: 42-year-old female with multiple complaints. Abdominal complaints: Broken cholecystostomy tube, abdominal pain, skin excoriation. Check basic laboratory studies, give pain control, obtain CT scan of the abdomen and pelvis. Discussed with general surgery on-call, Dr Kirk, who has seen the patient in the past. He will follow in consultation. We have requested a consultation from interventional radiology, and we are waiting for them to call back. In terms of the patient's lightheadedness, she is not tachycardic, she is not hypoxic, however, given her nonspecific description of symptoms, and prolonged recent hospitalizations, d-dimer sent to risk stratify for pulmonary embolus, it is elevated. Patient has normal renal function today, but has had renal insufficiency in the past. Therefore, to spare nephrons, we will obtain a nuclear medicine study, lower extremity DVT, an x-ray of the chest. EKG is pending at this time. Reevaluation #2: 11/17/18 17:25 Dr. Oconnor to admit to the medical service. Discussed case with Dr. Feldman. CT scan reviewed and appreciated. Nuclear medicine study, lower extremity DVT study pending interpretation at this time. Reevaluation #3: 11/17/18 17:36 Nuclear medicine study is low probability for pulmonary embolus. ED Medical Decision Making - Lab Data Result diagrams: 11/17/18 14:40 11/17/18 14:40 Vital Signs 11/17/18 11/17/18 11/17/18 14:17 14:48 15:21 Temperature 97.9 F Pulse Rate 81 75 Respiratory 20 24 Rate Blood Pressure 125/74 121/39 O2 Sat by Pulse 100 99 100 Oximetry 11/17/18 15:30 Temperature Pulse Rate 75 Respiratory 22 Rate Blood Pressure 118/54 O2 Sat by Pulse 100 Oximetry Lab Results 11/17/18 11/17/18 11/17/18 Range/Units 14:40 14:40 14:40 WBC 7.1 (4.5-11.0) K/mm3 RBC 3.24 L (3.65-5.03) M/mm3 Hgb 9.3 L (10.1-14.3) gm/dl Hct 27.3 L (30.3-42.9) % MCV 84 (79-97) fl MCH 29 (28-32) pg MCHC 34 (30-34) % RDW 18.1 H (13.2-15.2) % Plt Count 329 (140-440) K/mm3 PT (12.2-14.9) Sec. INR (0.87-1.13) APTT (24.2-36.6) Sec. D-Dimer (0-234) ng/mlDDU Sodium 132 L (137-145) mmol/L Potassium 3.9 (3.6-5.0) mmol/L Chloride 96.1 L (98-107) mmol/L Carbon Dioxide 24 (22-30) mmol/L Anion Gap 16 mmol/L BUN 20 H (7-17) mg/dL Creatinine 1.1 (0.7-1.2) mg/dL Estimated GFR > 60 ml/min BUN/Creatinine Ratio 18 % Glucose 113 H (65-100) mg/dL Lactic Acid 1.20 (0.7-2.0) mmol/L Calcium 9.5 (8.4-10.2) mg/dL Magnesium 1.70 (1.7-2.3) mg/dL Total Bilirubin 0.20 (0.1-1.2) mg/dL AST 9 (5-40) units/L ALT 11 (7-56) units/L Alkaline Phosphatase 107 (35-129) units/L Total Protein 8.1 (6.3-8.2) g/dL Albumin 3.3 L (3.9-5) g/dL Albumin/Globulin Ratio 0.7 % Lipase 75 H (13-60) units/L 11/17/18 Range/Units 14:40 WBC (4.5-11.0) K/mm3 RBC (3.65-5.03) M/mm3 Hgb (10.1-14.3) gm/dl Hct (30.3-42.9) % MCV (79-97) fl MCH (28-32) pg MCHC (30-34) % RDW (13.2-15.2) % Plt Count (140-440) K/mm3 PT 13.2 (12.2-14.9) Sec. INR 0.95 (0.87-1.13) APTT 29.0 (24.2-36.6) Sec. D-Dimer 3146.07 H (0-234) ng/mlDDU Sodium (137-145) mmol/L Potassium (3.6-5.0) mmol/L Chloride (98-107) mmol/L Carbon Dioxide (22-30) mmol/L Anion Gap mmol/L BUN (7-17) mg/dL Creatinine (0.7-1.2) mg/dL Estimated GFR ml/min BUN/Creatinine Ratio % Glucose (65-100) mg/dL Lactic Acid (0.7-2.0) mmol/L Calcium (8.4-10.2) mg/dL Magnesium (1.7-2.3) mg/dL Total Bilirubin (0.1-1.2) mg/dL AST (5-40) units/L ALT (7-56) units/L Alkaline Phosphatase (35-129) units/L Total Protein (6.3-8.2) g/dL Albumin (3.9-5) g/dL Albumin/Globulin Ratio % Lipase (13-60) units/L - EKG Data 11/17/18 18:36 Sinus, 72 bpm, normal axis, motion artifact, high with ventricular voltage, Q waves in the high lateral leads, not consistent with ST elevation myocardial infarction. - Radiology Data Radiology results: pending, report reviewed, image reviewed Noncontrast CT scan of the brain is negative for acute disease Print Report Referring Physician: PIPER BISWAS Patient Name: YOGESH CEBALLOS Date of : 1975 Sex: Female Report Date: 2018-11-17 Report Status: Finalized Findings [facility] [address] [place] [address] Cat Scan Report Signed Patient: YOGESH CEBALLOS MR#: [id number] : 1975 Acct:[id number] Age/Sex: 42 / F ADM Date: 11/17/18 Loc: ED Attending Dr: Ordering Physician: PIPER BISWAS MD Date of Service: 11/17/18 Procedure(s): CT abdomen pelvis wo con Accession Number(s): [id number] cc: PIPER BISWAS MD FINAL REPORT EXAM: CT ABDOMEN PELVIS WO CON HISTORY: abd pain TECHNIQUE: CT of the abdomen and pelvis without IV contrast. Coronal and sagitt al reconstructed imaging provided. PRIORS: CT abdomen pelvis October 22, 2018. FINDINGS: ABDOMEN: Trace bilateral pleural effusions with adjacent subsegmental atelectasis. Discoid subsegmental atelectasis at the right lung base. Stable cardiomegaly. Percutaneous pigtail catheter in the contracted gallbladder. Mild surrounding stranding noted. Liver, stomach, spleen, pancreas, adrenals, and kidneys are unremarkable. IVC is unremarkable. No aortic aneurysm. Mild aortic atherosclerotic disease. No periaortic or retroperitoneal mass or adenopathy. [id number] stool in the colon. No wall thickening or stranding. Appendix is not clearly identified. No pericecal inflammatory changes. Right lower quadrant ileostomy with surrounding stranding appears similar to prior. No fluid collection. Small bowel loops are unremarkable. No obstructive pattern. No free air. No significant free fluid. Midline abdominal wall subcutaneous fluid collection and tiny pocket of gas and with surrounding thick wall is decreased in size compared to the prior and may represent a subcutaneous abscess. Based on the coronal images the lesion measures 14.0 x 4.2 cm and previously measured 6.6 x 17 cm. Mild anasarca. PELVIS: Bilateral tubal ligation clips. Limited CT images of the uterus are unremarkable. Images of the bladder are unremarkable. No pelvic mass or adenopathy. No significant free fluid. Inguinal regions are unremarkable. Bones: No suspicious osseous lesions on this limited examination of the skeleton. Metastatic disease better evaluated with bone scan. Degenerative changes are in the spine. IMPRESSION: Trace bilateral pleural effusions with adjacent areas of subsegmental atelectasis. Empyema is are not entirely excluded. Stable cardiomegaly. Percutaneous pigtail catheter in the contracted gallbladder. If the gallbladder has been removed within the pigtail catheter is in the gallbladder fossa and there may be a walled fluid collection. Right lower quadrant ileostomy is unchanged. Decreased subcutaneous abdominal wall complex fluid collection which may represent an abscess. No intra-abdominal extension. Mild anasarca. Transcribed By: TYM Dictated By: JOLYNN URAIS MD Electronically Authenticated By: JOLYNN URIAS MD Signed Date/Time: 11/17/18 7584 Critical care attestation.: If time is entered above; I have spent that time in minutes in the direct care of this critically ill patient, excluding procedure time. ED Disposition Clinical Impression: Status post colostomy, Cholecystostomy care Disposition: OP ADMIT IP TO THIS HOSP Is pt being admited?: Yes Condition: Good
[2018-11-17 14:55] LABS: Hematocrit 27.3 % (30.3-42.9); Hemoglobin 9.3 gm/dl (10.1-14.3); Mean Corpuscular HGB Conc 34 % (30-34); Mean Corpuscular Volume 84 fl (79-97); Platelet Count 329 K/mm3 (140-440); Red Blood Count 3.24 M/mm3 (3.65-5.03); Red Cell Distribution Width 18.1 % (13.2-15.2)
[2018-11-17 15:07] LABS: INR 0.95 (0.87-1.13)
[2018-11-17 15:28] LABS: Alanine Aminotransferase 11 units/L (7-56); Albumin 3.3 g/dL (3.9-5); BUN/Creatinine Ratio 18; Blood Urea Nitrogen 20 mg/dL (7-17); Calcium 9.5 mg/dL (8.4-10.2); Hemolysis Index 14
--- NOTE | 2018-11-17 16:03 | Cat Scan Report ---
FINAL REPORT EXAM: CT HEAD/BRAIN WO CON HISTORY: light headed TECHNIQUE: CT of the Head without IV contrast. PRIORS: None currently available. FINDINGS: There is no evidence for acute ischemia. There is no hemorrhage. There is no midline shift. There is no hydrocephalus. There is no mass. Age appropriate chi-white matter attenuation is noted. There is no calvarial fracture. The temporal bones demonstrate aerated mastoid air cells. The middle ears appear unremarkable. Paranasal sinuses are unremarkable. Globes are intact. IMPRESSION: No acute intracranial findings.
--- NOTE | 2018-11-17 16:23 | Cat Scan Report ---
FINAL REPORT EXAM: CT ABDOMEN PELVIS WO CON HISTORY: abd pain TECHNIQUE: CT of the abdomen and pelvis without IV contrast. Coronal and sagittal reconstructed imag ing provided. PRIORS: CT abdomen pelvis October 22, 2018. FINDINGS: ABDOMEN: Trace bilateral pleural effusions with adjacent subsegmental atelectasis. Discoid subsegmental atelec tasis at the right lung base. Stable cardiomegaly. Percutaneous pigtail catheter in the contracted gallbladder. Mild surrounding stranding noted. Liver, stomach, spleen, pancreas, adrenals, and kidneys are unremarkable. IVC is unremarkable. No aortic aneurysm. Mild aortic atherosclerotic disease. No periaortic or retroperitoneal mass or adenopathy. [id number] stool in the colon. No wall thickening or stranding. Appendix is not clearly identified. No pericecal inflammatory changes. Right lower quadrant ileostomy with surrounding stranding appears similar to prior. No fluid collecti on. Small bowel loops are unremarkable. No obstructive pattern. No free air. No significant free flui d. Midline abdominal wall subcutaneous fluid collection and tiny pocket of gas and with surrounding thic k wall is decreased in size compared to the prior and may represent a subcutaneous abscess. Based on the coronal images the lesion measures 14.0 x 4.2 cm and previously measured 6.6 x 17 cm. Mild anasarca. PELVIS: Bilateral tubal ligation clips. Limited CT images of the uterus are unremarkable. Images of the bladder are unremarkable. No pelvic mass or adenopathy. No significant free fluid. Inguinal regions are unremarkable. Bones: No suspicious osseous lesions on this limited examination of the skeleton. Metastatic disease better evaluated with bone scan. Degenerative changes are in the spine. IMPRESSION: Trace bilateral pleural effusions with adjacent areas of subsegmental atelectasis. Empyema is are not entirely excluded. Stable cardiomegaly. Percutaneous pigtail catheter in the contracted gallbladder. If the gallbladder has been removed with in the pigtail catheter is in the gallbladder fossa and there may be a walled fluid collection. Right lower quadrant ileostomy is unchanged. Decreased subcutaneous abdominal wall complex fluid collection which may represent an abscess. No int ra-abdominal extension. Mild anasarca.
--- NOTE | 2018-11-17 17:13 | History and Physical Report ---
History of Present Illness Chief complaint: My stomach hurts History of present illness: 42 YO Female with Obesity, GERD, HTN, Migraine MENDENHALL presents to ED for evaluation. Pt states that she has experienced abdominal pain over the past 1 day with worsening symptoms over the same time frame. Pt states that her pain is 8/10, Constant, aching, without exacerbating or alleviating factory. Pt states that her cholecystostomy tube is broken. Pt seen and evaluated in ED and found to have displaced cholecystostomy tube. IR consulted and patient taken to Operating Room for intervention. Pt denies fever, chills, CP, Palpitations, NVD, Trauma, skin rash, or recent ill contacts. Pt admitted to medical floor. Pt found to hav e elevated D dimer, but VQ scan was negative for PE. Past History Past Medical History: GERD, hyperthyroidism Past Surgical History: cholecystectomy, , bowel surgery Social history: single Family history: hypertension Medications and Allergies Allergies Allergy/AdvReac Type Severity Reaction Status Date / Time latex Allergy Unknown Verified 11/17/18 14:17 lisinopril AdvReac cough Verified 10/22/18 17:36 sea Allergy Severe Angioedema Uncoded 10/23/18 11:10 Home Medications Medication Instructions Recorded Confirmed Last Taken Type Sodium Bicarbonate 650 mg PO BID 10/23/18 11/06/18 Unknown History Acetaminophen [Acetaminophen TAB] 650 mg PO Q4H PRN #15 tablet 10/25/18 11/06/18 Unknown Rx Butalb/Acetamin/Caff 50-325-40 1 tab PO Q4H PRN #10 tablet 10/25/18 11/06/18 Unknown Rx [Fioricet] Carvedilol [Coreg] 25 mg PO Q12HR #60 tablet 10/25/18 11/06/18 Unknown Rx Famotidine [Pepcid] 20 mg PO BID #20 tablet 10/25/18 11/06/18 Unknown Rx Gabapentin [Neurontin] 100 mg PO QDAY #30 capsule 10/25/18 11/06/18 Unknown Rx Venlafaxine Xr [Effexor XR] 75 mg PO QDAY #30 capsule 10/25/18 11/06/18 Unknown Rx amLODIPine [Norvasc] 10 mg PO DAILY #30 tablet 10/25/18 11/06/18 Unknown Rx Chlorthalidone [Thalitone] 25 mg PO QDAY #30 tablet 11/09/18 Unknown Rx Loperamide [Imodium] 4 mg PO QID #120 capsule 11/09/18 Unknown Rx Losartan [Cozaar] 50 mg PO QDAY #30 tablet 11/09/18 Unknown Rx Ondansetron [Zofran Odt] 4 mg PO Q8HR #30 tab.rapdis 11/09/18 Unknown Rx hydrOXYzine HCL [Atarax] 25 mg PO Q6H PRN #30 tablet 11/09/18 Unknown Rx traMADol [Ultram] 50 mg PO Q6HR PRN #14 tablet 11/09/18 Unknown Rx Review of Systems Constitutional: no weight loss, no weight gain, no fever, no chills Ears, nose, mouth and throat: no ear pain, no ear discharge, no tinnitis, no nose pain, no nasal congestion Breasts: no change in shape, no swelling, no mass Cardiovascular: no chest pain, no orthopnea, no palpitations, no rapid/irregular heart beat, no syncope Respiratory: no cough, no excessive sputum, no shortness of breath Gastrointestinal: abdominal pain, no nausea, no vomiting, no diarrhea Genitourinary Female: no pelvic pain, no flank pain, no menorrhagia, no dysuria Rectal: no pain, no incontinence, no bleeding Musculoskeletal: no neck stiffness, no neck pain Integumentary: no rash, no pruritis, no redness, no sores, no wounds Neurological: no paralysis, no parathesias, no tingling, no seizures, no tremors Psychiatric: no anxiety, no memory loss, no change in sleep habits Endocrine: no cold intolerance, no heat intolerance, no polyphagia, no polydipsia, no nocturia Hematologic/Lymphatic: no easy bruising, no easy bleeding, no lymphadenopathy, no lymphedema Allergic/Immunologic: no urticaria, no allergic rhinitis, no wheezing, no persistent infections, no anaphylaxis, no angioedema Exam - Constitutional Vitals: Temp Pulse Resp BP Pulse Ox 97.9 F 75 22 118/54 100 11/17/18 14:17 11/17/18 15:30 11/17/18 15:30 11/17/18 15:30 11/17/18 15:30 General appearance: Present: mild distress, obese - EENT Eyes: Present: PERRL ENT: hearing intact, clear oral mucosa - Neck Neck: Present: supple, normal ROM - Respiratory Respiratory effort: normal Respiratory: bilateral: CTA - Cardiovascular Heart Sounds: Present: S1 & S2. Absent: rub, click - Extremities Extremities: pulses symmetrical, No edema Peripheral Pulses: within normal limits - Abdominal General gastrointestinal: Present: soft, non-tender, non-distended, normal bowel sounds Female genitourinary: Present: normal - Integumentary Integumentary: Present: clear, warm, dry - Musculoskeletal Musculoskeletal: gait normal, strength equal bilaterally - Psychiatric Psychiatric: appropriate mood/affect, intact judgment & insight - Neurologic Neurologic: CNII-XII intact, moves all extremities Results - Labs CBC & Chem 7: 11/17/18 14:40 11/17/18 14:40 Labs: Abnormal lab results 11/17/18 11/17/18 11/17/18 Range/Units 14:40 14:40 14:40 RBC 3.24 L (3.65-5.03) M/mm3 Hgb 9.3 L (10.1-14.3) gm/dl Hct 27.3 L (30.3-42.9) % RDW 18.1 H (13.2-15.2) % D-Dimer 3146.07 H (0-234) ng/mlDDU Sodium 132 L (137-145) mmol/L Chloride 96.1 L (98-107) mmol/L BUN 20 H (7-17) mg/dL Glucose 113 H (65-100) mg/dL Albumin 3.3 L (3.9-5) g/dL Lipase 75 H (13-60) units/L Assessment and Plan - Patient Problems (1) Cholecystostomy care Current Visit: Yes Status: Acute Plan to address problem: IR consulted, PT taken to OR for intervention. pain control, supportive care, serial abdominal exam. (2) Hyponatremia syndrome Current Visit: Yes Status: Acute Plan to address problem: IVF resuscitation, repeat bmp in am. (3) DVT prophylaxis Current Visit: Yes Status: Acute Plan to address problem: SCD to BLE while in bed.
[2018-11-17] MEDS ORDERED: ATARAX PO PRN (17:14)
[2018-11-17] MEDS ORDERED: TYLENOL PO PRN ×2 (17:14→17:21)
[2018-11-17] MEDS ORDERED: FIORICET PO PRN (17:14)
[2018-11-17] MEDS ORDERED: ULTRAM PO PRN (17:14)
[2018-11-17] MEDS ORDERED: SODIUM CHLORIDE FLUSH SYRINGE 10 ML IV PRN (17:21)
[2018-11-17] MEDS ORDERED: ZOFRAN IV PRN (17:21)
[2018-11-17] MEDS ORDERED: PROVENTIL IH PRN (17:21)
[2018-11-17] MEDS ORDERED: CLEOCIN 600 MG/50 mL 600 MG/50 ML BAG IV ONE ×2 (17:25→19:56)
--- NOTE | 2018-11-17 17:29 | Nuclear Medicine Report ---
FINAL REPORT PROCEDURE: Nuclear Medicine ventilation and perfusion lung scan. TECHNIQUE: Ventilation imaging was done in the posterior projection using 15 millicuries of xenon 13 3 gas. Perfusion imaging was done in multiple projections using 5 millicuries of technetium 99 M maa. HISTORY: light headed recent admission ? pe COMPARISON: No prior studies are available for comparison. FINDINGS: There is homogeneous ventilation bilaterally. There is no significant trapping of xenon gas during th e washout phase of the study. The perfusion images are also homogeneous bilaterally. There are no per fusion defects. The lung scan is normal and carries an extremely low probability of pulmonary embolis m. IMPRESSION: Normal lung scan.
[2018-11-17] MEDS ORDERED: XYLOCAINE 2% INFILTRATI ONE (17:40)
[2018-11-17] MEDS ORDERED: NACL 0.9% 500 ML IR ONE (17:40)
[2018-11-17] MEDS ORDERED: LEVAQUIN 500MG/100ML 500 MG/100 ML BAG IV ONE (17:40)
--- NOTE | 2018-11-17 18:00 | Vascular Lab Report ---
FINAL REPORT PROCEDURE: Bilateral lower extremity duplex venous ultrasound. TECHNIQUE: Routine imaging of the deep venous system was performed in each leg. This included Dopple r spectral analysis and color-flow imaging. HISTORY: Near syncope, question deep venous thrombosis, question pulmonary embolism. COMPARISON: No prior studies are available for comparison. FINDINGS: Right leg: The deep venous system is compressible. Flow is confirmed by Doppler evaluation and color imaging. There is normal augmentation of blood flow demonstrated. Left leg: The deep venous system is compressible. Flow is confirmed by Doppler evaluation and color i maging. There is normal augmentation of blood flow demonstrated. IMPRESSION: Normal studies.
--- NOTE | 2018-11-17 18:32 | Operative Report ---
Operative Report Operative Report: EXAM: 1. Cholecystostomy tube injection. 2. Cholecystostomy tube exchange for 8 Sudanese APD DATE: 11/17/18 REGULATOR INSPECTOR: RASHID COLE MD INDICATION: Cholecystostomy tube cut in half. Leaking bile out of tube. MEDICATIONS: Please see nursing report for full details. DEVICES: 8 Fr APD CONTRAST: Please see slabbing machine operator note for full details. PROCEDURE: The risks, benefits, and alternatives were discussed with the patient; written informed consent was obtained. The patient was brought to the slabbing machine operator and prepped and draped in a sterile fashion. Cholecystostomy tube was examined and the fluoroscopy and the cope loop was formed in the right upper quadrant. 6 Sudanese dilator was passed into the amputated cholecystostomy tube. Contrast was injected through the dilator confirming the gallbladder there was irregularity within it, but no large stones identified. 0.035 inch wire was passed into the cholecystostomy tube in the cholecystostomy tube was removed. A new 8 Sudanese drain was advanced over the wire and passed into the gallbladder. [place] loop was formed in the gallbladder. Bile was aspirated and contrast was then injected confirming position with the gallbladder. The tube was then secured with 2-0 Ethilon. Sterile dressing applied. Patient tolerated the procedure well. No immediate post procedural complication. FINDINGS: Please see procedure note above. IMPRESSION: Successful cholecystostomy tube exchange
[2018-11-17] MEDS ORDERED: SUBLIMAZE ONE (18:48)
--- NOTE | 2018-11-17 19:27 | XRay Report ---
FINAL REPORT PROCEDURE: Chest. TECHNIQUE: Portable AP view. HISTORY: hx of dizzy + d dimer, will need v/q COMPARISON: Abdominal series with chest 10/30/2018. FINDINGS: The heart and mediastinum appear normal. The right lung is clear. There is a small band of subsegment al atelectasis in the left midlung. There are no pleural effusions. The soft tissues and regional ske leton are unremarkable. IMPRESSION: No evidence of acute disease.
[2018-11-17] MEDS ORDERED: IMODIUM ONE (19:53)
[2018-11-17] MEDS: IMODIUM PO SCH ×2 (19:54→23:13)
[2018-11-17] MEDS ORDERED: NON-FORMULARY (Sodium Bicarbonate 650 MG) PO SCH (22:00)
[2018-11-17] MEDS: SODIUM BICARBONATE PO SCH (23:11)
[2018-11-17] MEDS: ZOFRAN ODT PO SCH (23:13)
[2018-11-17] MEDS: PEPCID PO SCH (23:14)
[2018-11-17] MEDS: COREG PO SCH (23:14)
[2018-11-17] MEDS: SODIUM CHLORIDE FLUSH SYRINGE 10 ML IV SCH (23:14)
[2018-11-18] MEDS: MORPHINE IV PRN ×4 (00:11→21:59)
[2018-11-18] MEDS: ZOFRAN ODT PO SCH ×3 (05:00→21:53)
[2018-11-18 05:27] LABS: Basophils % (Auto) 0.4 % (0.0-1.8); Eosinophils # (Auto) 0.5 K/mm3 (0.0-0.4); Eosinophils % (Auto) 7.5 % (0.0-4.3); Hematocrit 25.9 % (30.3-42.9); Hemoglobin 8.6 gm/dl (10.1-14.3); Lymphocytes % (Auto) 16.4 % (13.4-35.0); Mean Corpuscular HGB Conc 33 % (30-34); Mean Corpuscular Volume 85 fl (79-97); Monocytes # (Auto) 0.8 K/mm3 (0.0-0.8); Monocytes % (Auto) 12.1 % (0.0-7.3); Platelet Count 308 K/mm3 (140-440); Red Blood Count 3.06 M/mm3 (3.65-5.03); Red Cell Distribution Width 18.4 % (13.2-15.2)
[2018-11-18 05:40] LABS: Albumin 2.9 g/dL (3.9-5); Calcium 8.9 mg/dL (8.4-10.2)
--- NOTE | 2018-11-18 12:23 | Consultation ---
History of Present Illness Consult date: 11/18/18 Chief complaint: broken cholecystostomy tube - History of present illness History of present illness: 42 yo F with a complex abdominal surgical history performed at an outside hospital presents to ER with c/o broken cholecystostomy tube. She is well known to our service for ongoing wound care issues being managed by Dr. Kirk. She was seen by Dr. Feldman yesterday and cholecystostomy tube was successfully replaced. The patient states she feels much better. She is still having back spasms which are unchanged. Her colostomy continues to leak due to positioning and body habitus. She denies f/c, cp, sob, n/v. Past History Past Medical History: GERD, hyperthyroidism, other (cholecystitis) Past Surgical History: , bowel surgery (colostomy), Other (attempted hysterectomy, cholecystostomy tube) Social history: single Family history: hypertension Medications and Allergies Allergies Allergy/AdvReac Type Severity Reaction Status Date / Time latex Allergy Unknown Verified 11/17/18 14:17 lisinopril AdvReac cough Verified 10/22/18 17:36 sea Allergy Severe Angioedema Uncoded 10/23/18 11:10 Home Medications Medication Instructions Recorded Confirmed Last Taken Type Sodium Bicarbonate 650 mg PO BID 10/23/18 11/06/18 Unknown History Acetaminophen [Acetaminophen TAB] 650 mg PO Q4H PRN #15 tablet 10/25/18 11/06/18 Unknown Rx Butalb/Acetamin/Caff 50-325-40 1 tab PO Q4H PRN #10 tablet 10/25/18 11/06/18 Unknown Rx [Fioricet] Carvedilol [Coreg] 25 mg PO Q12HR #60 tablet 10/25/18 11/06/18 Unknown Rx Famotidine [Pepcid] 20 mg PO BID #20 tablet 10/25/18 11/06/18 Unknown Rx Gabapentin [Neurontin] 100 mg PO QDAY #30 capsule 10/25/18 11/06/18 Unknown Rx Venlafaxine Xr [Effexor XR] 75 mg PO QDAY #30 capsule 10/25/18 11/06/18 Unknown Rx amLODIPine [Norvasc] 10 mg PO DAILY #30 tablet 10/25/18 11/06/18 Unknown Rx Chlorthalidone [Thalitone] 25 mg PO QDAY #30 tablet 11/09/18 Unknown Rx Loperamide [Imodium] 4 mg PO QID #120 capsule 11/09/18 Unknown Rx Losartan [Cozaar] 50 mg PO QDAY #30 tablet 11/09/18 Unknown Rx Ondansetron [Zofran Odt] 4 mg PO Q8HR #30 tab.rapdis 11/09/18 Unknown Rx hydrOXYzine HCL [Atarax] 25 mg PO Q6H PRN #30 tablet 11/09/18 Unknown Rx traMADol [Ultram] 50 mg PO Q6HR PRN #14 tablet 11/09/18 Unknown Rx Active Meds: Active Medications Acetaminophen (Tylenol) 650 mg PO Q4H PRN PRN Reason: Fever >101 Acetaminophen/Butalbital/Caffeine (Fioricet) 1 tab PO Q4H PRN PRN Reason: Headache Albuterol (Proventil) 2.5 mg IH Q4HRT PRN PRN Reason: Shortness Of Breath Amlodipine Besylate (Norvasc) 10 mg PO DAILY [facility] Carvedilol (Coreg) 25 mg PO Q12HR [facility] Last Admin: 11/17/18 23:14 Dose: 25 mg Documented by: Chlorthalidone (Thalitone) 25 mg PO QDAY [facility] Famotidine (Pepcid) 20 mg PO BID [facility] Last Admin: 11/17/18 23:14 Dose: 20 mg Documented by: Gabapentin (Neurontin) 100 mg PO QDAY [facility] Hydroxyzine HCl (Atarax) 25 mg PO Q6H PRN PRN Reason: Itching Sodium Chloride (Nacl 0.9% 1000 Ml) 1,000 mls @ 100 mls/hr IV DIRECT [facility] Loperamide HCl (Imodium) 4 mg PO QID [facility] Last Admin: 11/17/18 23:13 Dose: 4 mg Documented by: Losartan Potassium (Cozaar) 50 mg PO QDAY [facility] Morphine Sulfate (Morphine) 2 mg IV Q4H PRN PRN Reason: Pain, Moderate (4-6) Last Admin: 11/18/18 05:01 Dose: 2 mg Documented by: Ondansetron HCl (Zofran Odt) 4 mg PO Q8HR [facility] Last Admin: 11/18/18 05:00 Dose: 4 mg Documented by: Ondansetron HCl (Zofran) 4 mg IV Q8H PRN PRN Reason: Nausea And Vomiting Potassium Chloride (K-Dur) 40 meq PO QDAY [facility] Stop: 11/20/18 11:59 Sodium Bicarbonate (Sodium Bicarbonate) 650 mg PO BID [facility] Last Admin: 11/17/18 23:11 Dose: 650 mg Documented by: Sodium Chloride (Sodium Chloride Flush Syringe 10 Ml) 10 ml IV BID [facility] Last Admin: 11/17/18 23:14 Dose: 10 ml Documented by: Sodium Chloride (Sodium Chloride Flush Syringe 10 Ml) 10 ml IV PRN PRN PRN Reason: LINE FLUSH Tramadol HCl (Ultram) 50 mg PO Q6HR PRN PRN Reason: Pain Venlafaxine HCl (Effexor Xr) 75 mg PO QDAY [facility] Review of Systems All systems: negative (10 pt ROS performed and negative except for that listed in HPI) Exam Vital Signs Temp Pulse Resp BP Pulse Ox 97.9 F 81 20 125/74 100 11/17/18 14:17 11/17/18 14:17 11/17/18 14:17 11/17/18 14:17 11/17/18 14:17 Narrative exam: Gen: AAOx3. NAD ENT: no scleral icterus or conjunctival pallor CV: s1, S2+ Resp: even and unlabored Abd: soft, obese, NT, ND. Small opening near umbilicus with serous drainage. R sided colostomy with green semiformed stool. Cholecystostomy tube with green bile in collection bag. Ext: no c/c/e Results - Labs 11/18/18 04:47 11/18/18 04:47 Abnormal lab results 11/17/18 11/17/18 11/17/18 Range/Units 14:40 14:40 14:40 RBC 3.24 L (3.65-5.03) M/mm3 Hgb 9.3 L (10.1-14.3) gm/dl Hct 27.3 L (30.3-42.9) % RDW 18.1 H (13.2-15.2) % [place] % (Auto) (0.0-7.3) % Eos % (Auto) (0.0-4.3) % Lymph # (1.2-5.4) K/mm3 Eos # (0.0-0.4) K/mm3 D-Dimer 3146.07 H (0-234) ng/mlDDU Sodium 132 L (137-145) mmol/L Potassium (3.6-5.0) mmol/L Chloride 96.1 L (98-107) mmol/L BUN 20 H (7-17) mg/dL Creatinine (0.7-1.2) mg/dL Glucose 113 H (65-100) mg/dL Albumin 3.3 L (3.9-5) g/dL Lipase 75 H (13-60) units/L 11/18/18 11/18/18 Range/Units 04:47 04:47 RBC 3.06 L (3.65-5.03) M/mm3 Hgb 8.6 L (10.1-14.3) gm/dl Hct 25.9 L (30.3-42.9) % RDW 18.4 H (13.2-15.2) % [place] % (Auto) 12.1 H (0.0-7.3) % Eos % (Auto) 7.5 H (0.0-4.3) % Lymph # 1.0 L (1.2-5.4) K/mm3 Eos # 0.5 H (0.0-0.4) K/mm3 D-Dimer (0-234) ng/mlDDU Sodium 132 L (137-145) mmol/L Potassium 3.5 L (3.6-5.0) mmol/L Chloride 97.2 L (98-107) mmol/L BUN 20 H (7-17) mg/dL Creatinine 1.3 H (0.7-1.2) mg/dL Glucose 109 H (65-100) mg/dL Albumin 2.9 L (3.9-5) g/dL Lipase (13-60) units/L Diabetes panel 11/17/18 11/18/18 Range/Units 14:40 04:47 Sodium 132 L 132 L (137-145) mmol/L Potassium 3.9 3.5 L (3.6-5.0) mmol/L Chloride 96.1 L 97.2 L (98-107) mmol/L Carbon Dioxide 24 25 (22-30) mmol/L BUN 20 H 20 H (7-17) mg/dL Creatinine 1.1 1.3 H (0.7-1.2) mg/dL Glucose 113 H 109 H (65-100) mg/dL Calcium 9.5 8.9 (8.4-10.2) mg/dL AST 9 9 (5-40) units/L ALT 11 11 (7-56) units/L Alkaline Phosphatase 107 98 (35-129) units/L Total Protein 8.1 7.2 (6.3-8.2) g/dL Albumin 3.3 L 2.9 L (3.9-5) g/dL Calcium panel 11/17/18 11/18/18 Range/Units 14:40 04:47 Calcium 9.5 8.9 (8.4-10.2) mg/dL Albumin 3.3 L 2.9 L (3.9-5) g/dL Pituitary panel 11/17/18 11/18/18 Range/Units 14:40 04:47 Sodium 132 L 132 L (137-145) mmol/L Potassium 3.9 3.5 L (3.6-5.0) mmol/L Chloride 96.1 L 97.2 L (98-107) mmol/L Carbon Dioxide 24 25 (22-30) mmol/L BUN 20 H 20 H (7-17) mg/dL Creatinine 1.1 1.3 H (0.7-1.2) mg/dL Glucose 113 H 109 H (65-100) mg/dL Calcium 9.5 8.9 (8.4-10.2) mg/dL Adrenal panel 11/17/18 11/18/18 Range/Units 14:40 04:47 Sodium 132 L 132 L (137-145) mmol/L Potassium 3.9 3.5 L (3.6-5.0) mmol/L Chloride 96.1 L 97.2 L (98-107) mmol/L Carbon Dioxide 24 25 (22-30) mmol/L BUN 20 H 20 H (7-17) mg/dL Creatinine 1.1 1.3 H (0.7-1.2) mg/dL Glucose 113 H 109 H (65-100) mg/dL Calcium 9.5 8.9 (8.4-10.2) mg/dL Total Bilirubin 0.20 0.20 (0.1-1.2) mg/dL AST 9 9 (5-40) units/L ALT 11 11 (7-56) units/L Alkaline Phosphatase 107 98 (35-129) units/L Total Protein 8.1 7.2 (6.3-8.2) g/dL Albumin 3.3 L 2.9 L (3.9-5) g/dL - Imaging CT scan - abdomen: report reviewed, image reviewed CT scan - pelvis: report reviewed, image reviewed Assessment and Plan 42 yo F with 1. broken cholecystostomy tube s/p replacement by IR 2. dehydration 3. abdominal wall wound 4. hx of colostomy 5. obesity Plan: 1. continue current wound care for abdominal wall wound and routine colostomy care 2. IVF 3. Reg diet with PO supplements 4. continue home meds 5. continue imodium to help thicken stool 6. routine cholecystomy care May be discharged when stable per hospitalist service. May follow up in wound care on Tuesday. Patient already has a scheduled appointment.
[2018-11-18] MEDS: EFFEXOR XR PO SCH (12:56)
[2018-11-18] MEDS: THALITONE PO SCH (12:56)
[2018-11-18] MEDS: SODIUM BICARBONATE PO SCH ×2 (12:56→21:53)
[2018-11-18] MEDS: COREG PO SCH ×2 (12:57→21:54)
[2018-11-18] MEDS: IMODIUM PO SCH ×4 (12:57→21:53)
[2018-11-18] MEDS: PEPCID PO SCH ×2 (12:57→21:53)
[2018-11-18] MEDS: NEURONTIN PO SCH (12:57)
[2018-11-18] MEDS: SODIUM CHLORIDE FLUSH SYRINGE 10 ML IV SCH ×2 (12:58→21:55)
[2018-11-18] MEDS: K-DUR PO SCH (12:58)
[2018-11-18] MEDS: NORVASC PO SCH (12:58)
[2018-11-18] MEDS: COZAAR PO SCH (12:58)
--- NOTE | 2018-11-18 14:41 | Progress Note ---
Assessment and Plan Assessment and plan: Cholecystectomy tube malfunction -Status post replacement by IR -Continue abdominal wound care Dehydration with hyponatremia -Continue IV fluid -We'll monitor creatinine and sodium levels Hypokalemia -We'll replete and monitor level -We'll check magnesium level Hyperglycemia -We'll check hemoglobin A1c level Elevated d-dimer -VQ scan negative Hypertension -We'll continue current antihypertensives and adjust as needed Chronic headaches -on PRN Fioricet Anemia of chronic disease -H/H stable Morbid obesity with BMI of 42.9 -Lifestyle modification recommended Disposition: For discharge in a.m. if clinically stable History Interval history: She has no new complaints. Her cholecystectomy tube was replaced yesterday Hospitalist Physical - Constitutional Vitals: Temp Pulse Resp BP Pulse Ox 98.9 F 80 20 168/76 97 11/18/18 11:42 11/18/18 12:57 11/18/18 11:42 11/18/18 12:57 11/18/18 04:25 General appearance: Present: no acute distress, obese - EENT Eyes: Present: PERRL, EOM intact ENT: hearing intact, clear oral mucosa - Neck Neck: Present: supple - Respiratory Respiratory effort: normal Respiratory: bilateral: CTA - Cardiovascular Rhythm: regular Heart Sounds: Present: S1 & S2 - Extremities Extremities: No edema - Abdominal General gastrointestinal: soft, non-tender, normal bowel sounds, other (cholecystectomy tube and colostomy bag noted. Multiple dressings noted as well) - Neurologic Neurologic: CNII-XII intact Results - Labs CBC & Chem 7: 11/18/18 04:47 11/18/18 04:47 Labs: Laboratory Last Values WBC 6.2 K/mm3 (4.5-11.0) 11/18/18 04:47 RBC 3.06 M/mm3 (3.65-5.03) L 11/18/18 04:47 Hgb 8.6 gm/dl (10.1-14.3) L 11/18/18 04:47 Hct 25.9 % (30.3-42.9) L 11/18/18 04:47 MCV 85 fl (79-97) 11/18/18 04:47 MCH 28 pg (28-32) 11/18/18 04:47 MCHC 33 % (30-34) 11/18/18 04:47 RDW 18.4 % (13.2-15.2) H 11/18/18 04:47 Plt Count 308 K/mm3 (140-440) 11/18/18 04:47 Lymph % (Auto) 16.4 % (13.4-35.0) 11/18/18 04:47 [place] % (Auto) 12.1 % (0.0-7.3) H 11/18/18 04:47 Eos % (Auto) 7.5 % (0.0-4.3) H 11/18/18 04:47 Baso % (Auto) 0.4 % (0.0-1.8) 11/18/18 04:47 Lymph # 1.0 K/mm3 (1.2-5.4) L 11/18/18 04:47 [place] # 0.8 K/mm3 (0.0-0.8) 11/18/18 04:47 Eos # 0.5 K/mm3 (0.0-0.4) H 11/18/18 04:47 Baso # 0.0 K/mm3 (0.0-0.1) 11/18/18 04:47 Seg Neutrophils % 63.6 % (40.0-70.0) 11/18/18 04:47 Seg Neutrophils # 4.0 K/mm3 (1.8-7.7) 11/18/18 04:47 PT 13.2 Sec. (12.2-14.9) 11/17/18 14:40 INR 0.95 (0.87-1.13) 11/17/18 14:40 APTT 29.0 Sec. (24.2-36.6) 11/17/18 14:40 D-Dimer 3146.07 ng/mlDDU (0-234) H 11/17/18 14:40 Sodium 132 mmol/L (137-145) L 11/18/18 04:47 Potassium 3.5 mmol/L (3.6-5.0) L 11/18/18 04:47 Chloride 97.2 mmol/L (98-107) L 11/18/18 04:47 Carbon Dioxide 25 mmol/L (22-30) 11/18/18 04:47 Anion Gap 13 mmol/L 11/18/18 04:47 BUN 20 mg/dL (7-17) H 11/18/18 04:47 Creatinine 1.3 mg/dL (0.7-1.2) H 11/18/18 04:47 Estimated GFR 54 ml/min 11/18/18 04:47 BUN/Creatinine Ratio 15 % 11/18/18 04:47 Glucose 109 mg/dL (65-100) H 11/18/18 04:47 Lactic Acid 1.20 mmol/L (0.7-2.0) 11/17/18 14:40 Calcium 8.9 mg/dL (8.4-10.2) 11/18/18 04:47 Magnesium 1.70 mg/dL (1.7-2.3) 11/17/18 14:40 Total Bilirubin 0.20 mg/dL (0.1-1.2) 11/18/18 04:47 AST 9 units/L (5-40) 11/18/18 04:47 ALT 11 units/L (7-56) 11/18/18 04:47 Alkaline Phosphatase 98 units/L (35-129) 11/18/18 04:47 Troponin T < 0.010 ng/mL (0.00-0.029) 11/17/18 16:37 Total Protein 7.2 g/dL (6.3-8.2) 11/18/18 04:47 Albumin 2.9 g/dL (3.9-5) L 11/18/18 04:47 Albumin/Globulin Ratio 0.7 % 11/18/18 04:47 Lipase 75 units/L (13-60) H 11/17/18 14:40
[2018-11-18] MEDS ORDERED: APRESOLINE IV PRN (14:50)
[2018-11-18] MEDS: NACL 0.9% 1000 ML 1,000 ML IV SCH (18:50)
[2018-11-19] MEDS: NACL 0.9% 1000 ML 1,000 ML IV SCH (04:51)
[2018-11-19] MEDS: MORPHINE IV PRN (04:53)
[2018-11-19] MEDS: ZOFRAN ODT PO SCH (05:00)
[2018-11-19 07:54] LABS: Basophils % (Auto) 0.8 % (0.0-1.8); Eosinophils # (Auto) 0.5 K/mm3 (0.0-0.4); Eosinophils % (Auto) 7.7 % (0.0-4.3); Hematocrit 26.5 % (30.3-42.9); Hemoglobin 8.6 gm/dl (10.1-14.3); Mean Corpuscular HGB Conc 32 % (30-34); Mean Corpuscular Volume 86 fl (79-97); Monocytes # (Auto) 0.6 K/mm3 (0.0-0.8); Monocytes % (Auto) 10.1 % (0.0-7.3); Platelet Count 316 K/mm3 (140-440); Red Blood Count 3.07 M/mm3 (3.65-5.03); Red Cell Distribution Width 18.3 % (13.2-15.2)
[2018-11-19 08:08] LABS: BUN/Creatinine Ratio 20; Blood Urea Nitrogen 20 mg/dL (7-17); Calcium 8.7 mg/dL (8.4-10.2); Hemolysis Index 2
[2018-11-19] MEDS ORDERED: MAGNESIUM SULFATE 2GM/50ML 2 GM/50 ML BAG IV ONE (10:04)
[2018-11-19] MEDS: PEPCID PO SCH (11:23)
[2018-11-19] MEDS: NORVASC PO SCH (11:23)
[2018-11-19 11:24] VITALS: BP 139/86
[2018-11-19] MEDS: NEURONTIN PO SCH (11:24)
[2018-11-19] MEDS: IMODIUM PO SCH (11:24)
[2018-11-19] MEDS: COREG PO SCH (11:24)
[2018-11-19] MEDS: COZAAR PO SCH (11:25)
[2018-11-19] MEDS: SODIUM BICARBONATE PO SCH (11:25)
[2018-11-19] MEDS: EFFEXOR XR PO SCH (11:25)
[2018-11-19] MEDS: K-DUR PO SCH (11:25)
[2018-11-19] MEDS: THALITONE PO SCH (11:26)
[2018-11-19] MEDS: SODIUM CHLORIDE FLUSH SYRINGE 10 ML IV SCH (11:26)
--- NOTE | 2018-11-19 14:18 | Vascular Lab Report ---
FINAL REPORT EXAM: VL VENOUS DUPLEX UE RT HISTORY: DVT TECHNIQUE: Grayscale and color and spectral Doppler ultrasound imaging of the right upper extremity was performed for the purposes of assessing for deep venous thrombosis. PRIORS: None. FINDINGS: No evidence of deep venous thrombosis is seen within the right upper extremity venous system. Normal compression and color flow is seen throughout the deep venous system of the right upper extremity. Th ere is a short-segment, nonocclusive thrombus in the cephalic vein at the level of the antecubital fo ssa. Incidentally the left internal jugular and subclavian veins are patent. IMPRESSION: Negative for right upper extremity deep venous thrombosis. Nonocclusive, short segment superficial thrombus in the cephalic vein near the antecubital fossa.
--- NOTE | 2018-11-21 02:11 | Discharge Summary ---
Providers - Providers Date of Admission: 11/17/18 17:21 Date of discharge: 11/19/18 Attending physician: JOSIE BENNETT 11/17/18 15:51 Consult to Physician [CONS] Urgent Comment: Consulting Provider: JAVON BENNETT Physician Instructions: Reason For Exam: abd pain ostomy, cholecystostomy tube dislodgment Consult to Physician [CONS] Urgent Comment: Consulting Provider: ARSHID COLE Physician Instructions: Reason For Exam: dislodged cholecystostomy tube Primary care physician: CHAKA LINN Hospitalization Reason for admission: Cholecystectomy tube malfunction, Hyponatremia Condition: Good Pertinent studies: CT abdomen and pelvis V/Q scan Venous Doppler ultrasound Procedures: Cholecystectomy tube replacement Hospital course: Final discharge diagnoses: Cholecystectomy tube malfunction Dehydration with hyponatremia Hypokalemia Hypomagnesemia Hyperglycemia, DM ruled out Metabolic acidosis Elevated d-dimer, DVT ruled out Thrombophlebitis Hypertension Chronic headaches Anemia of chronic disease Morbid obesity with BMI of 42.9 Hospital course: Patient was admitted and she underwent cholecystectomy tube replacement by IR. Postprocedure, she was transferred to the floor and was placed on IV fluid. For her other comorbidities, she was continued on her home medications. For the elevated d-dime, further testings were done with VQ scan and bilateral lower extremity venous Doppler which were reported as negative for DVT. Thereafter, she was found to have electrolyte abnormalities for which she received both potassium and magnesium supplements. For the hyperglycemia, hemoglobin A1c was done and he came back normal. Patient developed right upper extremity edema with associated pain, which necessitated doing venous Doppler ultrasound to assess for DVT. It was reported as negative. Subsequently, she improved clinically and she was then deemed stable for discharge with clinic follow-up. Disposition: - TO HOME OR SELFCARE Time spent for discharge: 35 minutes Core Measure Documentation - Palliative Care Palliative Care/ Comfort Measures: Not Applicable - Core Measures Any of the following diagnoses?: none Exam - Constitutional Vitals: Temp Pulse Resp BP Pulse Ox 97.0 F L 79 20 139/86 96 11/19/18 10:49 11/19/18 11:24 11/19/18 10:49 11/19/18 11:24 11/19/18 10:49 General appearance: Present: no acute distress, obese - EENT Eyes: Present: PERRL ENT: hearing intact, clear oral mucosa - Neck Neck: Present: supple, normal ROM - Respiratory Respiratory effort: normal Respiratory: bilateral: CTA - Cardiovascular Rhythm: regular Heart Sounds: Present: S1 & S2. Absent: rub, click - Extremities Extremities: No edema Peripheral Pulses: within normal limits - Abdominal General gastrointestinal: Present: soft, non-tender, non-distended, normal bowel sounds, other (cholecystectomy tube and ileostomy bag noted) Female genitourinary: Present: normal - Musculoskeletal Musculoskeletal: gait normal, strength equal bilaterally - Psychiatric Psychiatric: appropriate mood/affect, intact judgment & insight - Neurologic Neurologic: CNII-XII intact, moves all extremities Plan Follow up with: CHAKA LINN MD [Primary Care Provider] - 3-5 Days Prescriptions: Sodium Bicarbonate 650 mg PO BID #10 tab
== END 2018-11-19 15:30 | disposition home or self-care (01) | DRG 920 ==
LOC: ED 14:07 → 3A 17:21
PROVIDERS: ADMIT Internal Medicine; ATTEND Internal Medicine
PROC: 0FP4X0Z Removal of Drainage Device from Gallbladder, External Approach (ICD-10-PCS; principal; 2018-11-17)
PROC: 0F9430Z Drainage of Gallbladder with Drainage Device, Percutaneous Approach (ICD-10-PCS; 2018-11-17)
DX: T85.698A Other mechanical complication of other specified internal prosthetic devices, implants and grafts, initial encounter (principal); E87.1 Hypo-osmolality and hyponatremia; E87.2 Acidosis; Z68.41 Body mass index [BMI] 40.0-44.9, adult; E86.0 Dehydration; E87.6 Hypokalemia; E83.42 Hypomagnesemia; I80.9 Phlebitis and thrombophlebitis of unspecified site; I10 Essential (primary) hypertension; D63.8 Anemia in other chronic diseases classified elsewhere; E66.01 Morbid (severe) obesity due to excess calories; Y83.8 Other surgical procedures as the cause of abnormal reaction of the patient, or of later complication, without mention of misadventure at the time of the procedure; R73.9 Hyperglycemia, unspecified; K21.9 Gastro-esophageal reflux disease without esophagitis; G43.909 Migraine, unspecified, not intractable, without status migrainosus; E05.90 Thyrotoxicosis, unspecified without thyrotoxic crisis or storm; Z82.49 Family history of ischemic heart disease and other diseases of the circulatory system; Z91.040 Latex allergy status; Z91.013 Allergy to seafood; Z79.899 Other long term (current) drug therapy; Z90.49 Acquired absence of other specified parts of digestive tract; Z90.710 Acquired absence of both cervix and uterus; Y92.89 Other specified places as the place of occurrence of the external cause
CPT/HCPCS: 36415; 47490; 70450; 71045; 74176; 78582; 80048; 80053; 82140; 83036; 83690; 83735; 84484; 85025; 85027; 85379; 85610; 85730; 93005; 93010; 93970; G0378; A9540; A9558; C1729; C1769; J1956; J2270; J3010; J3475; J7030; J7040; Q0162; Q9967

== ENCOUNTER 2018-11-21 11:28 | Outpatient (CLI) | payer MEDICAID, OTHER ==
[2018-11-21] MEDS ORDERED: XYLOCAINE TOPICAL 4% TP ONE (12:16)
== END 2018-11-21 11:29 | disposition home or self-care (01) ==
LOC: WOUND 11:28
PROVIDERS: ATTEND Surgery
DX: T81.89XD Other complications of procedures, not elsewhere classified, subsequent encounter (principal); L24.89 Irritant contact dermatitis due to other agents; I10 Essential (primary) hypertension; Y83.8 Other surgical procedures as the cause of abnormal reaction of the patient, or of later complication, without mention of misadventure at the time of the procedure
CPT/HCPCS: 99212; G0463

== ENCOUNTER 2019-04-07 08:25 | Emergency (ER) | payer MEDICAID ==
[2019-04-07 09:20] LABS: Basophils % (Auto) 1.1 % (0.0-1.8); Eosinophils # (Auto) 0.2 K/mm3 (0.0-0.4); Eosinophils % (Auto) 4.4 % (0.0-4.3); Hematocrit 37.5 % (30.3-42.9); Hemoglobin 12.6 gm/dl (10.1-14.3); Lymphocytes # (Auto) 1.2 K/mm3 (1.2-5.4); Lymphocytes % (Auto) 25.6 % (13.4-35.0); Mean Corpuscular HGB Conc 34 % (30-34); Mean Corpuscular Volume 93 fl (79-97); Monocytes # (Auto) 0.5 K/mm3 (0.0-0.8); Monocytes % (Auto) 11.7 % (0.0-7.3); Platelet Count 232 K/mm3 (140-440); Red Blood Count 4.04 M/mm3 (3.65-5.03); Red Cell Distribution Width 12.8 % (13.2-15.2)
[2019-04-07 09:28] LABS: Alanine Aminotransferase 15 units/L (7-56); Albumin 3.8 g/dL (3.9-5); BUN/Creatinine Ratio 20; Blood Urea Nitrogen 16 mg/dL (7-17); Calcium 9.4 mg/dL (8.4-10.2); Hemolysis Index 6
--- NOTE | 2019-04-07 09:38 | Emergency Department Report ---
ED Abdominal Pain HPI - General Chief Complaint: Abdominal Pain Stated Complaint: ABCESS Time Seen by Provider: 04/07/19 09:18 Source: patient Mode of arrival: Ambulatory Limitations: No Limitations - History of Present Illness Initial Comments: This is a 43 year old female who states that she had an elective hysterectomy which was aborted due to an injury to her bowel. She ended up with a gallbladder drain and ileostomy. She states that she moved to this area and has a primary care doctor at the [facility] 2 weeks ago she had a CT as an outpatient which demonstrated no acute finding. She states that she went to [facility] a week ago for similar complaints. No specific diagnosis was made. She believes that she has an abscess near her ileostomy. She denies fever or chills change in her bowel habits or vomiting. She has persistent abdominal discomfort. He states that her primary care doctor decided that she should come to this hospital for evaluation. She states that she has had no change in the output of her ostomy or drain. MD Complaint: abdominal pain -: Gradual, month(s) Location: diffuse Radiation: none Migration to: no migration Severity: mild, moderate Quality: aching Consistency: intermittent Improves With: nothing Worsens With: nothing Associated Symptoms: denies other symptoms - Related Data Previous Rx's Medication Instructions Recorded Last Taken Type Acetaminophen [Acetaminophen TAB] 650 mg PO Q4H PRN #15 tablet 10/25/18 Unknown Rx Butalb/Acetamin/Caff 50-325-40 1 tab PO Q4H PRN #10 tablet 10/25/18 Unknown Rx [Fioricet 50-325-40] Carvedilol [Coreg] 25 mg PO Q12HR #60 tablet 10/25/18 Unknown Rx Famotidine [Pepcid] 20 mg PO BID #20 tablet 10/25/18 Unknown Rx Gabapentin [Neurontin] 100 mg PO QDAY #30 capsule 10/25/18 Unknown Rx Venlafaxine Xr [Effexor XR] 75 mg PO QDAY #30 capsule 10/25/18 Unknown Rx amLODIPine [Norvasc] 10 mg PO DAILY #30 tablet 10/25/18 Unknown Rx Chlorthalidone [Thalitone] 25 mg PO QDAY #30 tablet 11/09/18 Unknown Rx Loperamide [Imodium] 4 mg PO QID #120 capsule 11/09/18 Unknown Rx Losartan [Cozaar] 50 mg PO QDAY #30 tablet 11/09/18 Unknown Rx Ondansetron [Zofran ODT TAB] 4 mg PO Q8HR #30 tab.rapdis 11/09/18 Unknown Rx hydrOXYzine HCL [Atarax] 25 mg PO Q6H PRN #30 tablet 11/09/18 Unknown Rx traMADol [Ultram 50 MG tab] 50 mg PO Q6HR PRN #14 tablet 11/09/18 Unknown Rx Sodium Bicarbonate 650 mg PO BID #10 tab 11/19/18 Unknown Rx Allergies Allergy/AdvReac Type Severity Reaction Status Date / Time latex Allergy Unknown Verified 11/17/18 14:17 lisinopril AdvReac cough Verified 10/22/18 17:36 sea Allergy Severe Angioedema Uncoded 10/23/18 11:10 ED Review of Systems ROS: Stated complaint: ABCESS Other details as noted in HPI Constitutional: denies: chills, fever Eyes: denies: eye pain, eye discharge, vision change ENT: denies: ear pain, throat pain Respiratory: denies: cough, shortness of breath, wheezing Cardiovascular: denies: chest pain, palpitations Endocrine: no symptoms reported Gastrointestinal: abdominal pain. denies: nausea, diarrhea Genitourinary: denies: urgency, dysuria, discharge Musculoskeletal: denies: back pain, joint swelling, arthralgia Skin: denies: rash, lesions Neurological: denies: headache, weakness, paresthesias Psychiatric: denies: anxiety, depression Hematological/Lymphatic: denies: easy bleeding, easy bruising ED Past Medical Hx - Past Medical History Previous Medical History?: Yes Hx Hypertension: Yes Hx CVA: No Hx Heart Attack/AMI: No Hx Congestive Heart Failure: No Hx Diabetes: No Hx Deep Vein Thrombosis: No Hx Pulmonary Embolism: No Hx GERD: Yes Hx Liver Disease: No Hx Renal Disease: No Hx Sickle Cell Disease: No Hx Arthritis: No Hx Headaches / Migraines: Yes Hx Seizures: No Hx Kidney Stones: No Hx Psychiatric Treatment: No Hx Asthma: No Hx COPD: No Hx Tuberculosis: No Hx Dementia: No Hx HIV: No - Surgical History Past Surgical History?: Yes Hx Coronary Stent: No Hx Open Heart Surgery: No Hx Pacemaker: No Hx Internal Defibrillator: No Hx Cholecystectomy: Yes (current) Hx Appendectomy: No Hx Breast Surgery: No Additional Surgical History: 4 . 1999, 2008, 2015, 2017. left bunion removal. 1990, Hysterectomy with complication, bowel leakage. August 2018. Was D/C from [facility] 10/21/18 - Social History Smoking Status: Never Smoker Substance Use Type: None - Medications Home Medications: Home Medications Medication Instructions Recorded Confirmed Last Taken Type Acetaminophen [Acetaminophen TAB] 650 mg PO Q4H PRN #15 tablet 10/25/18 11/06/18 Unknown Rx Butalb/Acetamin/Caff 50-325-40 1 tab PO Q4H PRN #10 tablet 10/25/18 11/06/18 Unknown Rx [Fioricet 50-325-40] Carvedilol [Coreg] 25 mg PO Q12HR #60 tablet 10/25/18 11/06/18 Unknown Rx Famotidine [Pepcid] 20 mg PO BID #20 tablet 10/25/18 11/06/18 Unknown Rx Gabapentin [Neurontin] 100 mg PO QDAY #30 capsule 10/25/18 11/06/18 Unknown Rx Venlafaxine Xr [Effexor XR] 75 mg PO QDAY #30 capsule 10/25/18 11/06/18 Unknown Rx amLODIPine [Norvasc] 10 mg PO DAILY #30 tablet 10/25/18 11/06/18 Unknown Rx Chlorthalidone [Thalitone] 25 mg PO QDAY #30 tablet 11/09/18 Unknown Rx Loperamide [Imodium] 4 mg PO QID #120 capsule 11/09/18 Unknown Rx Losartan [Cozaar] 50 mg PO QDAY #30 tablet 11/09/18 Unknown Rx Ondansetron [Zofran ODT TAB] 4 mg PO Q8HR #30 tab.rapdis 11/09/18 Unknown Rx hydrOXYzine HCL [Atarax] 25 mg PO Q6H PRN #30 tablet 11/09/18 Unknown Rx traMADol [Ultram 50 MG tab] 50 mg PO Q6HR PRN #14 tablet 11/09/18 Unknown Rx Sodium Bicarbonate 650 mg PO BID #10 tab 11/19/18 Unknown Rx ED Physical Exam - General Limitations: No Limitations General appearance: obese - Eye Eye exam: Present: normal appearance (morbid obesity). Absent: scleral icterus - ENT ENT exam: Present: mucous membranes moist - Neck Neck exam: Present: normal inspection - Respiratory Respiratory exam: Present: normal lung sounds bilaterally. Absent: respiratory distress - Cardiovascular Cardiovascular Exam: Present: regular rate, normal rhythm. Absent: systolic murmur, diastolic murmur, rubs, gallop - GI/Abdominal GI/Abdominal exam: Present: soft, other (poor hygiene related to her ileostomy. Formed stool drainage. I do not see any blake abscess.). Absent: distended, tenderness, guarding, rebound, rigid - Neurological Exam Neurological exam: Present: CN II-XII intact. Absent: motor sensory deficit - Psychiatric Psychiatric exam: Present: normal affect, normal mood - Skin Skin exam: Present: warm, dry, other (ostomy as above) ED Course Vital Signs 04/07/19 04/07/19 04/07/19 08:29 09:25 09:30 Temperature 97.6 F 98.2 F Pulse Rate 57 L 54 L Respiratory 16 16 16 Rate Blood Pressure 140/64 Blood Pressure 108/54 [Left] O2 Sat by Pulse 99 100 100 Oximetry ED Medical Decision Making - Lab Data Result diagrams: 04/07/19 08:41 04/07/19 08:41 Laboratory Results - last 24 hr 04/07/19 04/07/19 08:41 08:41 WBC 4.5 RBC 4.04 Hgb 12.6 Hct 37.5 MCV 93 MCH 31 MCHC 34 RDW 12.8 L Plt Count 232 Lymph % (Auto) 25.6 [place] % (Auto) 11.7 H Eos % (Auto) 4.4 H Baso % (Auto) 1.1 Lymph # 1.2 [place] # 0.5 Eos # 0.2 Baso # 0.0 Seg Neutrophils % 57.2 Seg Neutrophils # 2.6 Sodium 139 Potassium 3.4 L Chloride 98.5 Carbon Dioxide 28 Anion Gap 16 BUN 16 Creatinine 0.8 Estimated GFR > 60 BUN/Creatinine Ratio 20 Glucose 101 H Calcium 9.4 Total Bilirubin 0.20 AST 14 ALT 15 Alkaline Phosphatase 108 Total Protein 8.0 Albumin 3.8 L Albumin/Globulin Ratio 0.9 - Radiology Data Radiology results: report reviewed - Medical Decision Making CT of the abdomen and pelvis no acute process. No evidence of tube malfunction. Critical care attestation.: If time is entered above; I have spent that time in minutes in the direct care of this critically ill patient, excluding procedure time. ED Disposition Clinical Impression: Abdominal pain Qualifiers: Abdominal location: unspecified location Qualified Code(s): R10.9 - Unspecified abdominal pain Disposition: TO HOME OR SELFCARE Is pt being admited?: No Does the pt Need Aspirin: No Condition: Stable Instructions: Abdominal Pain (ED) Additional Instructions: Follow-up with your surgeon as planned. Return to the emergency department any acute change or problems. Referrals: TYRONE CARRION MD [Primary Care Provider] - 3-5 Days Time of Disposition: 13:16
[2019-04-07 10:55] LABS: Bacteria,Urine 1+ /HPF (Negative); Bilirubin,Urine NEG (Negative); Blood,Urine NEG (Negative); Color,Urine Yellow (Yellow); Mucus,Urine FEW /HPF; Protein,Urine <15 mg/dL mg/dL (Negative); Urobilinogen,Urine < 2.0 mg/dL (<2.0)
[2019-04-07 11:09] LABS: HCG Qualitative,Urine Negative (Negative)
[2019-04-07 11:12] LABS: Amphetamine Screen,Urine PRESUMPTIVE NEGATIVE; Benzodiazepines Screen,Urine PRESUMPTIVE NEGATIVE; Cannabinoid Screen,Urine PRESUMPTIVE NEGATIVE; Cocaine Screen,Urine PRESUMPTIVE NEGATIVE; Methadone Screen,Urine PRESUMPTIVE NEGATIVE
[2019-04-07 11:25] LABS: Opiate Screen,Urine PRESUMPTIVE POSITIVE
[2019-04-07] MEDS ORDERED: NORCO 5/325 PO ONE ×2 (12:19→12:20)
--- NOTE | 2019-04-07 12:32 | Cat Scan Report ---
CT ABDOMEN AND PELVIS WITH IV CONTRAST INDICATION: abd pain, post op. COMPARISON: None available. TECHNIQUE: Axial CT images were obtained through the abdomen and pelvis after 100 mL IV contrast. All CT scans a t this location are performed using CT dose reduction for ALARA by means of automated exposure contro l. FINDINGS -- ABDOMEN: Lung Bases: No acute abnormality. Liver: Normal. Gallbladder: Indwelling cholecystostomy drain projects in good position.. Bile Ducts: Normal. Pancreas: Normal. Spleen: Normal. Adrenals: Normal. Right Kidney and Proximal Ureter: Normal. Left Kidney and Proximal Ureter: Normal. Stomach and Bowel: Normal. Lymph Nodes: No significant adenopathy. Aorta: No significant abnormality. IVC: Normal. Additional Findings: Ventral abdominal hernia with nonincarcerated small bowel loops noted within. Ri ght lower quadrant ostomy.. FINDINGS -- PELVIS: Urinary Bladder and Distal Ureters: Normal. Reproductive Organs: No acute abnormality. Appendix: Normal. Bowel: Right lower quadrant ostomy. No high-grade small or large bowel obstruction .. Free Fluid: None. Lymph Nodes: No significant adenopathy. Additional Findings: None. Skeletal System: No acute abnormality. IMPRESSION: 1. The cholecystostomy drain remains in good position. 2. Large ventral abdominal hernia. 3. No evidence of high-grade small or large bowel obstruction. No drainable fluid collection. Signer Name: Kenneth Broussard MD Signed: 04/07/2019 12:27 PM Workstation Name: [id number]
[2019-04-07] MEDS ORDERED: K-DUR PO ONE (13:07)
[2019-04-07 15:52] VITALS: BP 114/76
== END 2019-04-07 15:52 | disposition home or self-care (01) ==
LOC: ED 08:25
DX: R10.9 Unspecified abdominal pain (principal); I10 Essential (primary) hypertension; K21.0 Gastro-esophageal reflux disease with esophagitis; G43.909 Migraine, unspecified, not intractable, without status migrainosus; Z90.49 Acquired absence of other specified parts of digestive tract; Z90.710 Acquired absence of both cervix and uterus; Z79.899 Other long term (current) drug therapy; Z88.8 Allergy status to other drugs, medicaments and biological substances; Z91.040 Latex allergy status; Z91.013 Allergy to seafood
CPT/HCPCS: 36415; 74177; 80053; 80307; 81001; 81025; 85025; 99284; Q9967

== ENCOUNTER 2019-08-05 13:59 | Inpatient (IN) | payer MEDICAID, OTHER ==
--- NOTE | 2019-08-05 14:46 | Event Note ---
ED Screening Note Date of service: 08/05/19 Time: 14:44 ED Screening Note: Pt complains of lower abdominal pain and heavy vaginal bleeding x today states 12 weeks denies urinary symptoms Hx of ectopic 2 years ago This initial assessment/diagnostic orders/clinical plan/treatment(s) is/are subject to change based on patients health status, clinical progression and re- assessment by fellow clinical providers in the ED. Further treatment and workup at subsequent clinical providers discretion. Patient/guardian urged not to elope from the ED as their condition may be serious if not clinically assessed and managed. Initial orders include:
[2019-08-05] MEDS ORDERED: MORPHINE 4 MG/1 ML INJ IV ONE (15:35)
[2019-08-05] MEDS ORDERED: SODIUM CHLORIDE 0.9% 1000 ML 1,000 ML IV ONE (15:35)
--- NOTE | 2019-08-05 15:42 | Event Note ---
ED Screening Note Date of service: 08/05/19 Time: 15:40 ED Screening Note: Pt c/o left sided abdominal pain x this morning had ileostomy removed 05/2019 +black stools and vomiting denies hematochezia/hematemesis/coffee ground emesis pain10 This initial assessment/diagnostic orders/clinical plan/treatment(s) is/are subject to change based on patients health status, clinical progression and re- assessment by fellow clinical providers in the ED. Further treatment and workup at subsequent clinical providers discretion. Patient/guardian urged not to elope from the ED as their condition may be serious if not clinically assessed and managed. Initial orders include: CT labs
[2019-08-05] MEDS ORDERED: ONDANSETRON 4 MG/2 ML INJ IV ONE (16:04)
[2019-08-05 17:12] LABS: Alanine Aminotransferase 13 units/L (7-56); Albumin 4.2 g/dL (3.9-5); BUN/Creatinine Ratio 16; Bilirubin,Direct < 0.2 mg/dL (0-0.2); Blood Urea Nitrogen 8 mg/dL (7-17); Calcium 9.7 mg/dL (8.4-10.2); Hemoglobin 13.8 gm/dl (10.1-14.3); Hemolysis Index 9; Mean Corpuscular HGB Conc 34 % (30-34); Mean Corpuscular Volume 93 fl (79-97); Platelet Count 268 K/mm3 (140-440); Red Blood Count 4.42 M/mm3 (3.65-5.03); Red Cell Distribution Width 14.6 % (13.2-15.2)
[2019-08-05] MEDS ORDERED: POTASSIUM CHLORIDE ER 20 MEQ TAB PO ONE (17:29)
--- NOTE | 2019-08-05 17:38 | Emergency Department Report ---
ED Abdominal Pain HPI - General Chief Complaint: Abdominal Pain Stated Complaint: ABD PAIN Time Seen by Provider: 08/05/19 14:44 Source: patient, EMS Mode of arrival: Stretcher Limitations: No Limitations - History of Present Illness Initial Comments: This is a 43-year-old female nontoxic, well nourished in appearance, no acute signs of distress presents to the ED with c/o of nausea and vomiting and abdominal pain 1 day. Patient describes vomiting as yellow gastric acid. Patient describes abdominal pain as cramping and aching with level of 10/10 diffuse. Patient denies chest pain, short of breath, fever, chills, headache, stiff neck, numbness or tingling. Patient stated has dark red color stool. Patient denies any constipation. Patient denies any recent travels. Patient stated allergies to Lasix and lisinopril. Past medical history includes ileostomy due to sepsis but has been removed. MD Complaint: abdominal pain -: days(s) (1) Location: diffuse Radiation: none Migration to: no migration Severity: severe Severity scale (0 -10): 10 Quality: cramping, aching Consistency: constant Improves With: nothing Worsens With: nothing Associated Symptoms: nausea, vomiting, hematochezia. denies: diarrhea, fever, chills, constipation, dysuria, hematemesis, melena, hematuria, anorexia, syncope - Related Data Previous Rx's Medication Instructions Recorded Last Taken Type Acetaminophen [Acetaminophen TAB] 650 mg PO Q4H PRN #15 tablet 10/25/18 Unknown Rx Butalb/Acetamin/Caff 50-325-40 1 tab PO Q4H PRN #10 tablet 10/25/18 Unknown Rx [Fioricet 50-325-40] Carvedilol [Coreg] 25 mg PO Q12HR #60 tablet 10/25/18 Unknown Rx Famotidine [Pepcid] 20 mg PO BID #20 tablet 10/25/18 Unknown Rx Gabapentin 100 mg PO QDAY #30 capsule 10/25/18 Unknown Rx Venlafaxine Xr [Effexor XR] 75 mg PO QDAY #30 capsule 10/25/18 Unknown Rx amLODIPine 10 mg PO DAILY #30 tablet 10/25/18 Unknown Rx Chlorthalidone [Thalitone] 25 mg PO QDAY #30 tablet 11/09/18 Unknown Rx Loperamide [Imodium] 4 mg PO QID #120 capsule 11/09/18 Unknown Rx Losartan [Cozaar] 50 mg PO QDAY #30 tablet 11/09/18 Unknown Rx Ondansetron [Zofran ODT TAB] 4 mg PO Q8HR #30 tab.rapdis 11/09/18 Unknown Rx hydrOXYzine HCL [Atarax] 25 mg PO Q6H PRN #30 tablet 11/09/18 Unknown Rx traMADol [Ultram 50 MG tab] 50 mg PO Q6HR PRN #14 tablet 11/09/18 Unknown Rx Sodium Bicarbonate 650 mg PO BID #10 tab 11/19/18 Unknown Rx Allergies Allergy/AdvReac Type Severity Reaction Status Date / Time latex Allergy Unknown Verified 11/17/18 14:17 lisinopril AdvReac cough Verified 10/22/18 17:36 sea Allergy Severe Angioedema Uncoded 10/23/18 11:10 ED Review of Systems ROS: Stated complaint: ABD PAIN Other details as noted in HPI Constitutional: denies: chills, fever Eyes: denies: eye pain, eye discharge, vision change ENT: denies: ear pain, throat pain Respiratory: denies: cough, shortness of breath, wheezing Cardiovascular: denies: chest pain, palpitations Endocrine: no symptoms reported Gastrointestinal: abdominal pain, nausea, vomiting, hematochezia. denies: diarrhea, constipation, hematemesis, melena Genitourinary: denies: urgency, dysuria, discharge Musculoskeletal: denies: back pain, joint swelling, arthralgia Skin: denies: rash, lesions Neurological: denies: headache, weakness, paresthesias Psychiatric: denies: anxiety, depression Hematological/Lymphatic: denies: easy bleeding, easy bruising ED Past Medical Hx - Past Medical History Hx Hypertension: Yes Hx CVA: No Hx Heart Attack/AMI: No Hx Congestive Heart Failure: No Hx Diabetes: No Hx Deep Vein Thrombosis: No Hx Pulmonary Embolism: No Hx GERD: Yes Hx Liver Disease: No Hx Renal Disease: No Hx Sickle Cell Disease: No Hx Arthritis: No Hx Headaches / Migraines: Yes Hx Seizures: No Hx Kidney Stones: No Hx Psychiatric Treatment: No Hx Asthma: No Hx COPD: No Hx Tuberculosis: No Hx Dementia: No Hx HIV: No - Surgical History Hx Coronary Stent: No Hx Open Heart Surgery: No Hx Pacemaker: No Hx Internal Defibrillator: No Hx Cholecystectomy: Yes (current) Hx Appendectomy: No Hx Breast Surgery: No Additional Surgical History: 4 . 1999, 2008, 2015, 2017. left bunion removal. 1990, Hysterectomy with complication, bowel leakage. August 2018. Was D/C from [facility] 10/21/18 - Social History Smoking Status: Never Smoker Substance Use Type: None - Medications Home Medications: Home Medications Medication Instructions Recorded Confirmed Last Taken Type Acetaminophen [Acetaminophen TAB] 650 mg PO Q4H PRN #15 tablet 10/25/18 11/06/18 Unknown Rx Butalb/Acetamin/Caff 50-325-40 1 tab PO Q4H PRN #10 tablet 10/25/18 11/06/18 Unknown Rx [Fioricet 50-325-40] Carvedilol [Coreg] 25 mg PO Q12HR #60 tablet 10/25/18 11/06/18 Unknown Rx Famotidine [Pepcid] 20 mg PO BID #20 tablet 10/25/18 11/06/18 Unknown Rx Gabapentin 100 mg PO QDAY #30 capsule 10/25/18 11/06/18 Unknown Rx Venlafaxine Xr [Effexor XR] 75 mg PO QDAY #30 capsule 10/25/18 11/06/18 Unknown Rx amLODIPine 10 mg PO DAILY #30 tablet 10/25/18 11/06/18 Unknown Rx Chlorthalidone [Thalitone] 25 mg PO QDAY #30 tablet 11/09/18 Unknown Rx Loperamide [Imodium] 4 mg PO QID #120 capsule 11/09/18 Unknown Rx Losartan [Cozaar] 50 mg PO QDAY #30 tablet 11/09/18 Unknown Rx Ondansetron [Zofran ODT TAB] 4 mg PO Q8HR #30 tab.rapdis 11/09/18 Unknown Rx hydrOXYzine HCL [Atarax] 25 mg PO Q6H PRN #30 tablet 11/09/18 Unknown Rx traMADol [Ultram 50 MG tab] 50 mg PO Q6HR PRN #14 tablet 11/09/18 Unknown Rx Sodium Bicarbonate 650 mg PO BID #10 tab 11/19/18 Unknown Rx ED Physical Exam - General Limitations: No Limitations General appearance: alert, in no apparent distress - Head Head exam: Present: atraumatic, normocephalic - Neck Neck exam: Present: normal inspection, full ROM. Absent: tenderness, meningismus, lymphadenopathy - Respiratory Respiratory exam: Present: normal lung sounds bilaterally. Absent: respiratory distress, wheezes, rales, rhonchi, stridor, chest wall tenderness, accessory muscle use, decreased breath sounds, prolonged expiratory - Cardiovascular Cardiovascular Exam: Present: regular rate, normal rhythm, normal heart sounds. Absent: bradycardia, tachycardia, irregular rhythm, systolic murmur, diastolic murmur, rubs, gallop - GI/Abdominal GI/Abdominal exam: Present: distended, tenderness, rebound. Absent: soft, guarding - Extremities Exam Extremities exam: Present: normal inspection, full ROM - Back Exam Back exam: Present: normal inspection, full ROM. Absent: tenderness, CVA tenderness (R), CVA tenderness (L), muscle spasm, paraspinal tenderness, vertebral tenderness, rash noted - Neurological Exam Neurological exam: Present: alert, oriented X3, normal gait - Psychiatric Psychiatric exam: Present: normal affect, normal mood - Skin Skin exam: Present: warm, dry, intact, normal color. Absent: rash ED Course Vital Signs 08/05/19 14:12 Temperature 98.1 F Pulse Rate 72 Respiratory 19 Rate Blood Pressure 185/87 O2 Sat by Pulse 100 Oximetry - Reevaluation(s) Reevaluation #1: 08/05/19 17:38 Patient is speaking in full sentences with no signs of distress noted. - Consultations Consultation #1: 08/05/19 17:39 Patient has been consulted with Lex Marinelli about patient history, physical exam, and labs and agrees to ED plan of care with admission. Consultation #2: 08/05/19 18:40 Patient has been consulted with Dr. Candida V about patient history, physical exam, and labs/CT results and accepts patient with admission orders to med/surg with remote tele. ED Medical Decision Making - Lab Data Result diagrams: 08/05/19 15:37 08/05/19 15:37 - Medical Decision Making This is a 43-year-old female that presents with abdominal pain and hypokalemia. Patient is stable and was examined by me. Labs obtained. UA obtained. CT of abdomen obtained and dictated by the radiologist. Patient is notified of the report with no questions noted by the patient. Vital signs are stable prior to admission. Patient received potassium chloride IV and by mouth. Patient accepted by Dr. Tirado for admission. At time of admission, the patient does not seem toxic or ill in appearance. No acute signs of distress noted. Patient agrees to admission treatment plan of care. No further questions noted by the patient. Critical care attestation.: If time is entered above; I have spent that time in minutes in the direct care of this critically ill patient, excluding procedure time. ED Disposition Clinical Impression: Hypokalemia Abdominal pain Qualifiers: Abdominal location: generalized Qualified Code(s): R10.84 - Generalized abdominal pain Disposition: OP ADMIT IP TO THIS HOSP Is pt being admited?: Yes Condition: Stable
[2019-08-05] MEDS: POTASSIUM CHLORIDE 10 MEQ 10 MEQ/100 ML BAG IV SCH ×2 (18:09→21:37)
--- NOTE | 2019-08-05 18:29 | Cat Scan Report ---
CT ABDOMEN AND PELVIS WITH CONTRAST INDICATION: left sided abdominal pain. TECHNIQUE: Axial CT images were obtained through the abdomen and pelvis after 100 cc Omnipaque [address] scans at this location are performed using CT dose reduction for ALARA by means of automated exposure control. COMPARISON: CT abdomen pelvis 04/07/2019 FINDINGS: LOWER CHEST: Linear scarring is again seen within the left lower lobe, unchanged. LIVER: No significant abnormality. GALLBLADDER: Has been surgically resected since prior study. Cholecystostomy tube has been removed. BILE DUCTS: No significant abnormality. PANCREAS: No significant abnormality. SPLEEN: No significant abnormality. ADRENALS: No significant abnormality. RIGHT KIDNEY and URETER: No significant abnormality. LEFT KIDNEY and URETER: No significant abnormality. STOMACH and SMALL BOWEL: Postsurgical change in small bowel with anastomotic suture line, new since p rior study with takedown of previously noted right lower quadrant ileostomy. COLON: No significant abnormality. APPENDIX: Not visualized likely surgically absent. PERITONEUM: Small amount of free pelvic fluid. No free air. No drainable fluid collection. LYMPH NODES: No significant adenopathy. AORTA and ARTERIES: No significant abnormality. IVC and VEINS: No significant abnormality. URINARY BLADDER: No significant abnormality. REPRODUCTIVE ORGANS: Bilateral tubal ligation clips again noted. Probable right ovarian cyst measurin g 4.0 x 5.6 cm image 136. ADDITIONAL FINDINGS: None. SKELETAL SYSTEM: No significant abnormality. IMPRESSION: 1. Probable right ovarian cyst adjacent to the right tubal ligation clip to the right of the uterus. Recommend follow-up pelvic ultrasound for confirmation. 2. Postsurgical change in small bowel with anastomosis with small amount of free fluid. No extralumin al gas or abscess. Signer Name: Karthikeyan Cardozo MD Signed: 08/05/2019 6:25 PM Workstation Name: [id number]
[2019-08-05 18:50] LABS: Bilirubin,Urine NEG (Negative); Blood,Urine NEG (Negative); Color,Urine Straw (Yellow); Mucus,Urine FEW /HPF; Protein,Urine <15 mg/dL mg/dL (Negative); Urobilinogen,Urine < 2.0 mg/dL (<2.0); WBC,Urine < 1.0 /HPF (0.0-6.0)
[2019-08-05] MEDS ORDERED: ONDANSETRON 4 MG/2 ML INJ IV PRN (20:28)
[2019-08-05] MEDS ORDERED: ACETAMINOPHEN 325 MG TAB PO PRN (20:28)
--- NOTE | 2019-08-05 20:28 | History and Physical Report ---
History of Present Illness Date of examination: 08/05/19 Date of admission: 08/05/19 18:35 Chief complaint: Abdominal pain and vomiting since a.m. History of present illness: 43-year-old female with history of hypertension and peripheral neuropathy comes in for vomiting and abdominal pain for 1 day. Abdominal pain and vomiting started this morning. Vomited about 4-5 times. Bilious in nature. Pain is all over the abdomen. Pain is sharp and intermittent. 10 on a scale of 1-10. No chest pain. No blood in the stools. No blood in the stools or dark stools. One episode of watery stools today. No hematemesis. Past Medical History Hypertension: Yes No the end of left GERD: Yes Headaches / Migraines: Yes Menorrhagia Surgical History Cholecystectomy: Yes (current) Additional Surgical History: 4 . 1999, 2008, 2015, 2016. Left bunion removal. 1990, Hysterectomy with complication--- had perforation during surgery ending in ileostomy without getting the hysterectomy in August 2018. Ileostomy was reversed in May 2019. Social History Smoking Status: Never Smoker Substance Use Type: None Family history Htn Medications Home Medications: Home Medications Medication Instructions Recorded Confirmed Last Taken Type Acetaminophen [Acetaminophen TAB] 650 mg PO Q4H PRN #15 tablet 10/25/18 11/06/18 Unknown Rx Butalb/Acetamin/Caff 50-325-40 1 tab PO Q4H PRN #10 tablet 10/25/18 11/06/18 Unknown Rx [Fioricet 50-325-40] Carvedilol [Coreg] 25 mg PO Q12HR #60 tablet 10/25/18 11/06/18 Unknown Rx Famotidine [Pepcid] 20 mg PO BID #20 tablet 10/25/18 11/06/18 Unknown Rx Gabapentin 100 mg PO QDAY #30 capsule 10/25/18 11/06/18 Unknown Rx Venlafaxine Xr [Effexor XR] 75 mg PO QDAY #30 capsule 10/25/18 11/06/18 Unknown Rx amLODIPine 10 mg PO DAILY #30 tablet 10/25/18 11/06/18 Unknown Rx Chlorthalidone [Thalitone] 25 mg PO QDAY #30 tablet 11/09/18 Unknown Rx Loperamide [Imodium] 4 mg PO QID #120 capsule 11/09/18 Unknown Rx Losartan [Cozaar] 50 mg PO QDAY #30 tablet 11/09/18 Unknown Rx Ondansetron [Zofran ODT TAB] 4 mg PO Q8HR #30 tab.rapdis 11/09/18 Unknown Rx hydrOXYzine HCL [Atarax] 25 mg PO Q6H PRN #30 tablet 11/09/18 Unknown Rx traMADol [Ultram 50 MG tab] 50 mg PO Q6HR PRN #14 tablet 11/09/18 Unknown Rx Sodium Bicarbonate 650 mg PO BID #10 tab 11/19/18 Unknown Rx Review of Systems ROS: Stated complaint: ABD PAIN Other details as noted in HPI Constitutional: denies: chills, fever Eyes: denies: eye pain, eye discharge, vision change ENT: denies: ear pain, throat pain Respiratory: denies: cough, shortness of breath, wheezing Cardiovascular: denies: chest pain, palpitations Endocrine: no symptoms reported Gastrointestinal: abdominal pain, nausea, vomiting, hematochezia. denies: diarrhea, constipation, hematemesis, melena Genitourinary: denies: urgency, dysuria, discharge Musculoskeletal: denies: back pain, joint swelling, arthralgia Skin: denies: rash, lesions Neurological: denies: headache, weakness, paresthesias Psychiatric: denies: anxiety, depression Hematological/Lymphatic: denies: easy bleeding, easy bruising Medications and Allergies Allergies Allergy/AdvReac Type Severity Reaction Status Date / Time latex Allergy Unknown Verified 11/17/18 14:17 lisinopril AdvReac cough Verified 10/22/18 17:36 sea Allergy Severe Angioedema Uncoded 10/23/18 11:10 Home Medications Medication Instructions Recorded Confirmed Last Taken Type Acetaminophen [Acetaminophen TAB] 650 mg PO Q4H PRN #15 tablet 10/25/18 08/05/19 Unknown Rx Butalb/Acetamin/Caff 50-325-40 1 tab PO Q4H PRN #10 tablet 10/25/18 08/05/19 Unknown Rx [Fioricet 50-325-40] Carvedilol [Coreg] 25 mg PO Q12HR #60 tablet 10/25/18 08/05/19 Unknown Rx Famotidine [Pepcid] 20 mg PO BID #20 tablet 10/25/18 08/05/19 Unknown Rx Gabapentin 100 mg PO QDAY #30 capsule 10/25/18 08/05/19 Unknown Rx Venlafaxine Xr [Effexor XR] 75 mg PO QDAY #30 capsule 10/25/18 08/05/19 Unknown Rx amLODIPine 10 mg PO DAILY #30 tablet 10/25/18 08/05/19 Unknown Rx Chlorthalidone [Thalitone] 25 mg PO QDAY #30 tablet 11/09/18 08/05/19 Unknown Rx Loperamide [Imodium] 4 mg PO QID #120 capsule 11/09/18 08/05/19 Unknown Rx Losartan [Cozaar] 50 mg PO QDAY #30 tablet 11/09/18 08/05/19 Unknown Rx hydrOXYzine HCL [Atarax] 50 mg PO TID PRN 08/05/19 Unknown History Exam - Constitutional Vitals: Temp Pulse Resp BP Pulse Ox 98.1 F 72 19 185/87 100 08/05/19 14:12 08/05/19 14:12 08/05/19 14:12 08/05/19 14:12 08/05/19 14:12 General appearance: Present: no acute distress, well-nourished - EENT Eyes: Present: PERRL ENT: hearing intact, clear oral mucosa - Neck Neck: Present: supple, normal ROM - Respiratory Respiratory effort: normal Respiratory: bilateral: CTA - Cardiovascular Heart rate: 78 Rhythm: regular Heart Sounds: Present: S1 & S2. Absent: rub, click - Extremities Extremities: no ischemia, pulses intact, pulses symmetrical, No edema Peripheral Pulses: within normal limits - Abdominal General gastrointestinal: Present: soft, non-tender, non-distended, normal bowel sounds Female genitourinary: Present: normal - Rectal Rectal Exam: deferred - Integumentary Integumentary: Present: clear, warm, dry - Musculoskeletal Musculoskeletal: gait normal, strength equal bilaterally - Psychiatric Psychiatric: appropriate mood/affect, intact judgment & insight - Neurologic Neurologic: CNII-XII intact, moves all extremities - Allied Health Allied health notes reviewed: nursing, case management Results - Labs CBC & Chem 7: 08/05/19 15:37 08/05/19 15:37 Labs: Laboratory Last Values WBC 8.2 K/mm3 (4.5-11.0) 08/05/19 15:37 RBC 4.42 M/mm3 (3.65-5.03) 08/05/19 15:37 Hgb 13.8 gm/dl (10.1-14.3) 08/05/19 15:37 Hct 41.0 % (30.3-42.9) 08/05/19 15:37 MCV 93 fl (79-97) 08/05/19 15:37 MCH 31 pg (28-32) 08/05/19 15:37 MCHC 34 % (30-34) 08/05/19 15:37 RDW 14.6 % (13.2-15.2) 08/05/19 15:37 Plt Count 268 K/mm3 (140-440) 08/05/19 15:37 Sodium 138 mmol/L (137-145) 08/05/19 15:37 Potassium 2.2 mmol/L (3.6-5.0) L* 08/05/19 15:37 Chloride 93.6 mmol/L (98-107) L 08/05/19 15:37 Carbon Dioxide 22 mmol/L (22-30) 08/05/19 15:37 Anion Gap 25 mmol/L 08/05/19 15:37 BUN 8 mg/dL (7-17) 08/05/19 15:37 Creatinine 0.5 mg/dL (0.7-1.2) L 08/05/19 15:37 Estimated GFR > 60 ml/min 08/05/19 15:37 BUN/Creatinine Ratio 16 % 08/05/19 15:37 Glucose 125 mg/dL (65-100) H 08/05/19 15:37 Calcium 9.7 mg/dL (8.4-10.2) 08/05/19 15:37 Magnesium 1.60 mg/dL (1.7-2.3) L 08/05/19 18:17 Total Bilirubin 0.70 mg/dL (0.1-1.2) 08/05/19 15:37 Direct Bilirubin < 0.2 mg/dL (0-0.2) 08/05/19 15:37 Indirect Bilirubin 0.5 mg/dL 08/05/19 15:37 AST 15 units/L (5-40) 08/05/19 15:37 ALT 13 units/L (7-56) 08/05/19 15:37 Alkaline Phosphatase 88 units/L (35-129) 08/05/19 15:37 Total Protein 8.1 g/dL (6.3-8.2) 08/05/19 15:37 Albumin 4.2 g/dL (3.9-5) 08/05/19 15:37 Albumin/Globulin Ratio 1.1 % 08/05/19 15:37 Lipase 11 units/L (13-60) L 08/05/19 15:37 HCG, Qual Negative (Negative) 08/05/19 15:42 Urine Color Straw (Yellow) 08/05/19 Unknown Urine Turbidity Clear (Clear) 08/05/19 Unknown Urine pH 8.0 (5.0-7.0) H 08/05/19 Unknown Ur Specific [place] 1.010 (1.003-1.030) 08/05/19 Unknown Urine Protein <15 mg/dl mg/dL (Negative) 08/05/19 Unknown Urine Glucose (UA) Neg mg/dL (Negative) 08/05/19 Unknown Urine Ketones 20 mg/dL (Negative) 08/05/19 Unknown Urine Blood Neg (Negative) 08/05/19 Unknown Urine Nitrite Neg (Negative) 08/05/19 Unknown Urine Bilirubin Neg (Negative) 08/05/19 Unknown Urine Urobilinogen < 2.0 mg/dL (<2.0) 08/05/19 Unknown Ur Leukocyte Esterase Neg (Negative) 08/05/19 Unknown Urine WBC (Auto) < 1.0 /HPF (0.0-6.0) 08/05/19 Unknown Urine RBC (Auto) 2.0 /HPF (0.0-6.0) 08/05/19 Unknown U Epithel Cells (Auto) 1.0 /HPF (0-13.0) 08/05/19 Unknown Urine Mucus Few /HPF 08/05/19 Unknown - Imaging and Cardiology Imaging and Cardiology: Abd CT IMPRESSION: 1. Probable right ovarian cyst adjacent to the right tubal ligation clip to the right of the uterus. Recommend follow-up pelvic ultrasound for confirmation. 2. Postsurgical change in small bowel with anastomosis with small amount of free fluid. No extraluminal gas or abscess. Assessment and Plan Advance Directives: Yes (full code) VTE prophylaxis?: Chemical Plan of care discussed with patient/family: Yes - Patient Problems (1) Acute gastritis Current Visit: Yes Status: Acute Qualifiers: Gastritis bleeding: without bleeding Plan to address problem: Severe gastritis IV fluids for now IV protonix GI consult if symptoms persist (2) Hypokalemia Current Visit: Yes Status: Acute Plan to address problem: IV KCl given Recheck potassium level (3) Hypertension Current Visit: Yes Status: Chronic Qualifiers: Hypertension type: essential hypertension Qualified Code(s): I10 - Essential (primary) hypertension Plan to address problem: Continue antihypertensives (4) Hypomagnesemia Current Visit: Yes Status: Acute Plan to address problem: Supplemented IV magnesium 2 g given (5) Peripheral neuropathy Current Visit: Yes Status: Chronic Qualifiers: Peripheral neuropathy type: polyneuropathy, unspecified Qualified Code(s): G62.9 - Polyneuropathy, unspecified Plan to address problem: Continue gabapentin (6) DVT prophylaxis Current Visit: No Status: Acute Plan to address problem: On Lovenox and GI prophylaxis
[2019-08-05] MEDS ORDERED: MAGNESIUM SULFATE 2 GM/50 ML BAG IV ONE (20:59)
[2019-08-05] MEDS ORDERED: POTASSIUM CHLORIDE 10 MEQ 10 MEQ/100 ML BAG IV ONE (21:30)
[2019-08-05] MEDS ORDERED: HYDROmorphone 1 MG/1 ML INJ ONE (21:31)
[2019-08-05] MEDS ORDERED: hydrALAZINE 20 MG/1 ML INJ IV PRN (21:32)
[2019-08-05] MEDS: HYDROmorphone 1 MG/1 ML INJ IV PRN (21:36)
[2019-08-05] MEDS: PANTOPRAZOLE 40 MG INJ IV SCH (23:00)
[2019-08-05] MEDS: D5W/0.45% NACL/KCL 20 MEQ 20 MEQ/1,000 ML BAG IV SCH (23:01)
[2019-08-06 05:15] LABS: Basophils % (Auto) 0.4 % (0.0-1.8); Eosinophils # (Auto) 0.1 K/mm3 (0.0-0.4); Eosinophils % (Auto) 1.5 % (0.0-4.3); Hematocrit 35.1 % (30.3-42.9); Hemoglobin 11.8 gm/dl (10.1-14.3); Lymphocytes # (Auto) 1.5 K/mm3 (1.2-5.4); Lymphocytes % (Auto) 22.9 % (13.4-35.0); Mean Corpuscular HGB Conc 34 % (30-34); Mean Corpuscular Volume 93 fl (79-97); Monocytes # (Auto) 0.9 K/mm3 (0.0-0.8); Monocytes % (Auto) 13.5 % (0.0-7.3); Platelet Count 235 K/mm3 (140-440); Red Cell Distribution Width 14.8 % (13.2-15.2)
[2019-08-06 05:39] LABS: Alanine Aminotransferase 10 units/L (7-56); Albumin 3.5 g/dL (3.9-5); BUN/Creatinine Ratio 14; Blood Urea Nitrogen 7 mg/dL (7-17); Calcium 8.5 mg/dL (8.4-10.2); Hemolysis Index 1
[2019-08-06] MEDS ORDERED: POTASSIUM CHLORIDE ER 20 MEQ TAB PO ONE (05:51)
--- NOTE | 2019-08-06 05:53 | Event Note ---
Date: 08/06/19 Potassium this am 2.5 ( trending up from admission which was 2.2) pt is on D5 1/2 NS 20MEQ K+. Ordered po potassium 40Meq. Follow up on potassium labs.
[2019-08-06] MEDS: HYDROmorphone 1 MG/1 ML INJ IV PRN ×3 (09:10→19:51)
[2019-08-06] MEDS: PANTOPRAZOLE 40 MG INJ IV SCH ×2 (09:10→22:33)
--- NOTE | 2019-08-06 12:56 | Progress Note ---
Assessment and Plan 43-year-old female with history of hypertension and peripheral neuropathy comes in for vomiting and abdominal pain for 1 day. Abdominal pain and vomiting started this morning. Vomited about 4-5 times. Bilious in nature. Pain is all over the abdomen. Pain is sharp and intermittent. 10 on a scale of 1-10. No chest pain. No blood in the stools. No blood in the stools or dark stools. One episode of watery stools today. No hematemesis. Of note is this patient had perforated ilium during the hysterectomy in 2018 for which the hysterectom was aborted. Patient had estimated with subsequent resection of the small bowel and persistent diarrhea and after. 1) peptic ulcer disease CT scan was unremarkable. IV fluids for now IV protonix GI consult for possible EGD (2) Hypokalemia Current Visit: Yes Status: Acute Plan to address problem: Supplemental potassium Recheck potassium level (3) Hypertension Continue antihypertensives (4) Hypomagnesemia Supplemented magnesium and recheck (5) Peripheral neuropathy Patient has short gut syndrome We will check a B12 level Continue with gabapentin (6) DVT prophylaxis On Lovenox and GI prophylaxis Subjective Date of service: 08/06/19 Principal diagnosis: abdominal pain, ovarian cyst, nausea vomiting. Interval history: Having epigastric pain. No nausea no vomiting this morning. No fever. Objective - Exam Narrative Exam: Constitutional: Well-nourished well-developed. In no distress Head: Normocephalic atraumatic Eyes: Pupils are equal round and reactive to light Nose: No enlarged turbinates, no septal deviation. Mouth: Moist mucous membranes. Neck: Supple no thyromegaly. No bruit. No JVD Heart: Regular rate and rhythm, S1-S2 normal. No rubs murmurs or gallop Lungs: Clear to auscultation bilaterally. no rales or rhonchi Abdomen: Epigastric tenderness. Bowel sound are present. Extremities: No edema, no cyanosis, no clubbing. Neuro: Alert oriented Oriented x3. No focal sensory or motor deficit. Skin: No rashes or hyperpigmented spots Musculoskeletal system: No joint pain or swelling Hematological: No petechia or subcutanous hemorrhages. Immunological: No multiple septic spots on the skin Lymphatic: No generalized lymphadenopathy Psychiatry: Euthymic. Calm. - Constitutional Vitals: Vital Signs - 12hr 08/06/19 08/06/19 08/06/19 04:23 10:17 10:31 Temperature 98.5 F 99.4 F Pulse Rate 65 Pulse Rate [ 66 Left Apical] Respiratory 20 Rate Blood Pressure 159/81 O2 Sat by Pulse 95 100 Oximetry 08/06/19 12:05 Temperature 99.6 F Pulse Rate 65 Pulse Rate [ Left Apical] Respiratory 16 Rate Blood Pressure 144/77 O2 Sat by Pulse 98 Oximetry - Labs CBC & Chem 7: 08/06/19 04:39 08/06/19 10:29 Labs: Abnormal lab results 08/05/19 08/05/19 08/05/19 Range/Units 15:37 18:17 Unknown [place] % (Auto) (0.0-7.3) % [place] # (0.0-0.8) K/mm3 Potassium 2.2 L* (3.6-5.0) mmol/L Chloride 93.6 L (98-107) mmol/L Creatinine 0.5 L (0.7-1.2) mg/dL Glucose 125 H (65-100) mg/dL Magnesium 1.60 L (1.7-2.3) mg/dL Albumin (3.9-5) g/dL Lipase 11 L (13-60) units/L Urine pH 8.0 H (5.0-7.0) 08/06/19 08/06/19 08/06/19 Range/Units 04:39 04:39 10:29 [place] % (Auto) 13.5 H (0.0-7.3) % [place] # 0.9 H (0.0-0.8) K/mm3 Potassium 2.5 L* 3.1 L D (3.6-5.0) mmol/L Chloride (98-107) mmol/L Creatinine 0.5 L (0.7-1.2) mg/dL Glucose (65-100) mg/dL Magnesium (1.7-2.3) mg/dL Albumin 3.5 L (3.9-5) g/dL Lipase (13-60) units/L Urine pH (5.0-7.0)
[2019-08-06] MEDS: D5W/0.45% NACL/KCL 20 MEQ 20 MEQ/1,000 ML BAG IV SCH (14:42)
[2019-08-06] MEDS ORDERED: BUTALB/ACETAMINOPHEN/CAFFEINE TAB PO PRN (20:02)
[2019-08-06] MEDS ORDERED: ACETAMINOPHEN 325 MG TAB PO PRN (20:02)
[2019-08-06] MEDS: GABAPENTIN 100 MG CAP PO SCH (22:33)
[2019-08-06] MEDS: LOPERAMIDE 2 MG CAP PO SCH (22:33)
[2019-08-06] MEDS: carvediloL 25 MG TAB PO SCH (22:34)
[2019-08-06] MEDS: VENLAFAXINE XR 75 MG CAP PO SCH (22:43)
[2019-08-06] MEDS: CHLORTHALIDONE 25 MG TAB PO SCH (22:44)
[2019-08-07] MEDS: HYDROmorphone 1 MG/1 ML INJ IV PRN ×5 (01:07→22:49)
[2019-08-07] MEDS: D5W/0.45% NACL/KCL 20 MEQ 20 MEQ/1,000 ML BAG IV SCH ×2 (05:38→15:56)
[2019-08-07 07:32] LABS: Basophils % (Auto) 0.5 % (0.0-1.8); Eosinophils # (Auto) 0.1 K/mm3 (0.0-0.4); Eosinophils % (Auto) 2.8 % (0.0-4.3); Hematocrit 34.4 % (30.3-42.9); Hemoglobin 11.3 gm/dl (10.1-14.3); Lymphocytes # (Auto) 1.1 K/mm3 (1.2-5.4); Lymphocytes % (Auto) 28.1 % (13.4-35.0); Mean Corpuscular HGB Conc 33 % (30-34); Mean Corpuscular Volume 93 fl (79-97); Monocytes # (Auto) 0.6 K/mm3 (0.0-0.8); Monocytes % (Auto) 14.5 % (0.0-7.3); Platelet Count 206 K/mm3 (140-440); Red Blood Count 3.68 M/mm3 (3.65-5.03); Red Cell Distribution Width 14.9 % (13.2-15.2)
[2019-08-07 08:00] LABS: Alanine Aminotransferase 9 units/L (7-56); Albumin 3.1 g/dL (3.9-5); BUN/Creatinine Ratio 7; Blood Urea Nitrogen 4 mg/dL (7-17); Calcium 8.6 mg/dL (8.4-10.2); Hemolysis Index 8
[2019-08-07] MEDS: VENLAFAXINE XR 75 MG CAP PO SCH (10:30)
[2019-08-07] MEDS: CHLORTHALIDONE 25 MG TAB PO SCH (10:30)
[2019-08-07] MEDS: GABAPENTIN 100 MG CAP PO SCH (10:31)
[2019-08-07] MEDS: LOPERAMIDE 2 MG CAP PO SCH ×4 (10:31→21:18)
[2019-08-07] MEDS: PANTOPRAZOLE 40 MG INJ IV SCH ×2 (10:33→21:19)
[2019-08-07] MEDS: carvediloL 25 MG TAB PO SCH ×2 (10:56→21:18)
[2019-08-07] MEDS ORDERED: POTASSIUM CHLORIDE ER 20 MEQ TAB PO ONE ×2 (12:08→16:00)
--- NOTE | 2019-08-07 12:16 | Progress Note ---
Assessment and Plan Assessment and plan: peptic ulcer disease CT scan was unremarkable. IV protonix GI consulted Hypokalemia Supplemental potassium Recheck potassium level Hypertension Continue antihypertensives Hypomagnesemia Supplemented magnesium and recheck Peripheral neuropathy Patient has short gut syndrome We will check a B12 level Continue with gabapentin DVT prophylaxis On Lovenox and GI prophylaxis History Interval history: No new issues overnight. Hospitalist Physical - Constitutional Vitals: Temp Pulse Resp BP Pulse Ox 97.7 F 61 18 150/82 98 08/07/19 05:57 08/07/19 10:58 08/07/19 10:58 08/07/19 10:58 08/07/19 10:58 General appearance: Present: no acute distress, well-nourished - EENT Eyes: Present: PERRL, EOM intact ENT: hearing intact, clear oral mucosa, dentition normal - Neck Neck: Present: supple, normal ROM - Respiratory Respiratory effort: normal Respiratory: bilateral: CTA - Cardiovascular Rhythm: regular Heart Sounds: Present: S1 & S2. Absent: gallop, rub - Extremities Extremities: no ischemia, No edema, Full ROM - Abdominal General gastrointestinal: soft, non-tender, non-distended, normal bowel sounds - Integumentary Integumentary: Present: clear, warm, dry - Neurologic Neurologic: CNII-XII intact, moves all extremities Results - Labs CBC & Chem 7: 08/07/19 06:52 08/07/19 06:52 Labs: Laboratory Last Values WBC 3.8 K/mm3 (4.5-11.0) L 08/07/19 06:52 RBC 3.68 M/mm3 (3.65-5.03) 08/07/19 06:52 Hgb 11.3 gm/dl (10.1-14.3) 08/07/19 06:52 Hct 34.4 % (30.3-42.9) 08/07/19 06:52 MCV 93 fl (79-97) 08/07/19 06:52 MCH 31 pg (28-32) 08/07/19 06:52 MCHC 33 % (30-34) 08/07/19 06:52 RDW 14.9 % (13.2-15.2) 08/07/19 06:52 Plt Count 206 K/mm3 (140-440) 08/07/19 06:52 Lymph % (Auto) 28.1 % (13.4-35.0) 08/07/19 06:52 [place] % (Auto) 14.5 % (0.0-7.3) H 08/07/19 06:52 Eos % (Auto) 2.8 % (0.0-4.3) 08/07/19 06:52 Baso % (Auto) 0.5 % (0.0-1.8) 08/07/19 06:52 Lymph # 1.1 K/mm3 (1.2-5.4) L 08/07/19 06:52 [place] # 0.6 K/mm3 (0.0-0.8) 08/07/19 06:52 Eos # 0.1 K/mm3 (0.0-0.4) 08/07/19 06:52 Baso # 0.0 K/mm3 (0.0-0.1) 08/07/19 06:52 Seg Neutrophils % 54.1 % (40.0-70.0) 08/07/19 06:52 Seg Neutrophils # 2.1 K/mm3 (1.8-7.7) 08/07/19 06:52 Sodium 139 mmol/L (137-145) 08/07/19 06:52 Potassium 2.6 mmol/L (3.6-5.0) L* 08/07/19 06:52 Chloride 98.5 mmol/L (98-107) 08/07/19 06:52 Carbon Dioxide 28 mmol/L (22-30) 08/07/19 06:52 Anion Gap 15 mmol/L 08/07/19 06:52 BUN 4 mg/dL (7-17) L 08/07/19 06:52 Creatinine 0.6 mg/dL (0.7-1.2) L 08/07/19 06:52 Estimated GFR > 60 ml/min 08/07/19 06:52 BUN/Creatinine Ratio 7 % 08/07/19 06:52 Glucose 100 mg/dL (65-100) 08/07/19 06:52 Hemoglobin A1c 5.2 % (4-6) 08/05/19 15:37 Calcium 8.6 mg/dL (8.4-10.2) 08/07/19 06:52 Phosphorus 3.90 mg/dL (2.5-4.5) 08/07/19 06:52 Magnesium 1.90 mg/dL (1.7-2.3) 08/07/19 06:52 Total Bilirubin 0.40 mg/dL (0.1-1.2) 08/07/19 06:52 Direct Bilirubin < 0.2 mg/dL (0-0.2) 08/05/19 15:37 Indirect Bilirubin 0.5 mg/dL 08/05/19 15:37 AST 11 units/L (5-40) 08/07/19 06:52 ALT 9 units/L (7-56) 08/07/19 06:52 Alkaline Phosphatase 68 units/L (35-129) 08/07/19 06:52 Total Protein 6.3 g/dL (6.3-8.2) 08/07/19 06:52 Albumin 3.1 g/dL (3.9-5) L 08/07/19 06:52 Albumin/Globulin Ratio 1.0 % 08/07/19 06:52 Lipase 11 units/L (13-60) L 08/05/19 15:37 Vitamin B12 451.3 pg/mL (211-911) 08/06/19 20:28 HCG, Qual Negative (Negative) 08/05/19 15:42 Urine Color Straw (Yellow) 08/05/19 Unknown Urine Turbidity Clear (Clear) 08/05/19 Unknown Urine pH 8.0 (5.0-7.0) H 08/05/19 Unknown Ur Specific [place] 1.010 (1.003-1.030) 08/05/19 Unknown Urine Protein <15 mg/dl mg/dL (Negative) 08/05/19 Unknown Urine Glucose (UA) Neg mg/dL (Negative) 08/05/19 Unknown Urine Ketones 20 mg/dL (Negative) 08/05/19 Unknown Urine Blood Neg (Negative) 08/05/19 Unknown Urine Nitrite Neg (Negative) 08/05/19 Unknown Urine Bilirubin Neg (Negative) 08/05/19 Unknown Urine Urobilinogen < 2.0 mg/dL (<2.0) 08/05/19 Unknown Ur Leukocyte Esterase Neg (Negative) 08/05/19 Unknown Urine WBC (Auto) < 1.0 /HPF (0.0-6.0) 08/05/19 Unknown Urine RBC (Auto) 2.0 /HPF (0.0-6.0) 08/05/19 Unknown U Epithel Cells (Auto) 1.0 /HPF (0-13.0) 08/05/19 Unknown Urine Mucus Few /HPF 08/05/19 Unknown Active Medications - Current Medications Current Medications: Generic Name Dose Route Start Last Admin Trade Name Freq PRN Reason Stop Dose Admin Acetaminophen 650 mg 08/06/19 20:02 Tylenol PO Q4H PRN Fever >101 Acetaminophen/Butalbital/Caffeine 1 tab 08/06/19 20:02 Fioricet PO Q4H PRN Headache Carvedilol 25 mg 08/06/19 22:00 08/07/19 10:56 Coreg PO 25 mg Q12HR KAT Administration Chlorthalidone 25 mg 08/06/19 21:00 08/07/19 10:30 Thalitone PO 25 mg QDAY KAT Administration Gabapentin 100 mg 08/06/19 21:00 08/07/19 10:31 Gabapentin PO 100 mg QDAY KAT Administration Hydralazine HCl 5 mg 08/05/19 21:32 Apresoline IV Q6HR PRN blood pressure Hydromorphone HCl 1 mg 08/05/19 20:28 08/07/19 10:43 Dilaudid IV 1 mg Q3H PRN Administration Pain , Severe (7-10) Potassium Chloride/Dextrose/Sod Cl 20 meq in 1,000 mls @ 100 mls/hr 08/05/19 21:00 08/07/19 05:38 D5w/0.45% Nacl/Kcl 20 Meq IV 100 mls/hr DIRECT KAT Administration Loperamide HCl 4 mg 08/06/19 22:00 08/07/19 10:31 Imodium PO Not Given QID KAT Ondansetron HCl 4 mg 08/05/19 20:28 Zofran IV Q3H PRN Nausea And Vomiting Pantoprazole Sodium 40 mg 08/05/19 22:00 08/07/19 10:33 Protonix IV 08/07/19 23:59 40 mg BID KAT Administration Pantoprazole Sodium 40 mg 08/08/19 10:00 Protonix PO BID KAT Sodium Chloride 10 ml 08/05/19 22:00 08/07/19 10:34 Sodium Chloride Flush Syringe 10 Ml IV 10 ml BID KAT Administration Sodium Chloride 10 ml 08/05/19 20:28 Sodium Chloride Flush Syringe 10 Ml IV PRN PRN LINE FLUSH Venlafaxine HCl 75 mg 08/06/19 21:00 08/07/19 10:30 Effexor Xr PO 75 mg QDAY KAT Administration Nutrition/Malnutrition Assess - Dietary Evaluation Nutrition/Malnutrition Findings: Nutrition Notes Start: 08/06/19 13:56 Freq: Status: Active Protocol: Document 08/06/19 13:56 BREANAJORDYN (Rec: 08/06/19 14:18 NED SR- [email or web address]) Nutrition Notes Need for Assessment 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 She was admitted with abdominal pains and vomiting. Last PO intake of solid foods was 08/04/19. She is tolerating cl liq diet and wants to try clear ONS. She reports a milk allergy. Pt had an ileostomy reversal this past May. She says ileostomy was placed sec to bowel perforation during a surgical procedure. Pt reports difficulty digesting most vegetables and can only tolerate chicken. Burn Absent Trauma Absent GI Symptoms Vomiting Food Allergy Yes Current % PO Poor (25-49%) Minimum of two criteria No #1 Nutrition Diagnosis Inadequate oral intake Etiology GI dysfunction As Evidenced by Signs and Symptoms pt only able to tolerate cl liq diet at this time; cl diet does not provide enough pro to meet needs Is patient on ventilator? No Is Patient Ambulatory and/or Out of Bed Yes REE-([facility]-ambulatory/OOB) [ 2324.452 [id number]] Kcal/Kg value to use for calculation 14 Approximate Energy Requirements Using 1676 kcal/Kg Calculation Used for Recommendations Kcal/kg Additional Notes Pro needs 0.8-1g/kg adjBW: 67- 84g/day Fluid needs 1ml/kcal Nutrition Intervention Change Diet Order: Advance diet as tolerated Add Supplement/Snack (indicate name/kcal Ensure Clear TID /protein ) Provides kCal: 720 Provides Protein (gm) 24 Goal #1 PO tolerance Goal #2 Diet advancement to meet nutrient needs as best possible Anticipated Discharge Needs: None identified at this time Follow-Up By: 08/08/19 Additional Comments F/U: diet advancement, intakes (meals/ONS)
[2019-08-08] MEDS: HYDROmorphone 1 MG/1 ML INJ IV PRN ×5 (01:55→21:53)
[2019-08-08 05:37] LABS: Basophils % (Auto) 0.4 % (0.0-1.8); Eosinophils # (Auto) 0.2 K/mm3 (0.0-0.4); Eosinophils % (Auto) 4.1 % (0.0-4.3); Hematocrit 35.6 % (30.3-42.9); Hemoglobin 11.7 gm/dl (10.1-14.3); Lymphocytes # (Auto) 1.4 K/mm3 (1.2-5.4); Lymphocytes % (Auto) 31.5 % (13.4-35.0); Mean Corpuscular HGB Conc 33 % (30-34); Mean Corpuscular Volume 94 fl (79-97); Monocytes # (Auto) 0.6 K/mm3 (0.0-0.8); Monocytes % (Auto) 13.5 % (0.0-7.3); Platelet Count 225 K/mm3 (140-440)
[2019-08-08 06:08] LABS: Alanine Aminotransferase 10 units/L (7-56); Albumin 3.4 g/dL (3.9-5); BUN/Creatinine Ratio 5; Blood Urea Nitrogen 3 mg/dL (7-17); Calcium 8.7 mg/dL (8.4-10.2); Hemolysis Index 7
[2019-08-08] MEDS: carvediloL 25 MG TAB PO SCH ×2 (10:00→23:50)
[2019-08-08] MEDS: GABAPENTIN 100 MG CAP PO SCH (10:13)
[2019-08-08] MEDS: PANTOPRAZOLE 40 MG TAB PO SCH ×2 (10:13→21:50)
[2019-08-08] MEDS ORDERED: SIMETHICONE 80 MG CHEW TAB PO PRN (11:54)
--- NOTE | 2019-08-08 11:54 | Progress Note ---
Assessment and Plan Assessment and plan: peptic ulcer disease CT scan was unremarkable. IV protonix, and Mylicon GI consulted Hypokalemia Supplemental potassium Recheck potassium level Hypertension Continue antihypertensives Hypomagnesemia Supplemented magnesium and recheck Peripheral neuropathy Patient has short gut syndrome We will check a B12 level Continue with gabapentin DVT prophylaxis On Lovenox and GI prophylaxis Disposition. Dysphagia discharge in a.m. History Interval history: No new issues overnight. Patient still complains of abdominal pain. Hospitalist Physical - Constitutional Vitals: Temp Pulse Resp BP Pulse Ox 97.4 F L 52 L 18 145/67 99 08/08/19 05:42 08/08/19 05:42 08/08/19 05:42 08/08/19 05:42 08/08/19 05:42 General appearance: Present: no acute distress, well-nourished - EENT Eyes: Present: PERRL, EOM intact ENT: hearing intact, clear oral mucosa, dentition normal - Neck Neck: Present: supple, normal ROM - Respiratory Respiratory effort: normal Respiratory: bilateral: CTA - Cardiovascular Rhythm: regular Heart Sounds: Present: S1 & S2. Absent: gallop, rub - Extremities Extremities: no ischemia, No edema, Full ROM - Abdominal General gastrointestinal: soft, non-tender, non-distended, normal bowel sounds - Integumentary Integumentary: Present: clear, warm, dry - Neurologic Neurologic: CNII-XII intact, moves all extremities Results - Labs CBC & Chem 7: 08/08/19 05:16 08/08/19 05:16 Labs: Laboratory Last Values WBC 4.5 K/mm3 (4.5-11.0) 08/08/19 05:16 RBC 3.80 M/mm3 (3.65-5.03) 08/08/19 05:16 Hgb 11.7 gm/dl (10.1-14.3) 08/08/19 05:16 Hct 35.6 % (30.3-42.9) 08/08/19 05:16 MCV 94 fl (79-97) 08/08/19 05:16 MCH 31 pg (28-32) 08/08/19 05:16 MCHC 33 % (30-34) 08/08/19 05:16 RDW 15.0 % (13.2-15.2) 08/08/19 05:16 Plt Count 225 K/mm3 (140-440) 08/08/19 05:16 Lymph % (Auto) 31.5 % (13.4-35.0) 08/08/19 05:16 [place] % (Auto) 13.5 % (0.0-7.3) H 08/08/19 05:16 Eos % (Auto) 4.1 % (0.0-4.3) 08/08/19 05:16 Baso % (Auto) 0.4 % (0.0-1.8) 08/08/19 05:16 Lymph # 1.4 K/mm3 (1.2-5.4) 08/08/19 05:16 [place] # 0.6 K/mm3 (0.0-0.8) 08/08/19 05:16 Eos # 0.2 K/mm3 (0.0-0.4) 08/08/19 05:16 Baso # 0.0 K/mm3 (0.0-0.1) 08/08/19 05:16 Seg Neutrophils % 50.5 % (40.0-70.0) 08/08/19 05:16 Seg Neutrophils # 2.3 K/mm3 (1.8-7.7) 08/08/19 05:16 Sodium 139 mmol/L (137-145) 08/08/19 05:16 Potassium 3.2 mmol/L (3.6-5.0) L D 08/08/19 05:16 Chloride 99.3 mmol/L (98-107) 08/08/19 05:16 Carbon Dioxide 29 mmol/L (22-30) 08/08/19 05:16 Anion Gap 14 mmol/L 08/08/19 05:16 BUN 3 mg/dL (7-17) L 08/08/19 05:16 Creatinine 0.6 mg/dL (0.7-1.2) L 08/08/19 05:16 Estimated GFR > 60 ml/min 08/08/19 05:16 BUN/Creatinine Ratio 5 % 08/08/19 05:16 Glucose 101 mg/dL (65-100) H 08/08/19 05:16 Hemoglobin A1c 5.2 % (4-6) 08/05/19 15:37 Calcium 8.7 mg/dL (8.4-10.2) 08/08/19 05:16 Phosphorus 3.90 mg/dL (2.5-4.5) 08/07/19 06:52 Magnesium 1.90 mg/dL (1.7-2.3) 08/07/19 06:52 Total Bilirubin 0.30 mg/dL (0.1-1.2) 08/08/19 05:16 Direct Bilirubin < 0.2 mg/dL (0-0.2) 08/05/19 15:37 Indirect Bilirubin 0.5 mg/dL 08/05/19 15:37 AST 11 units/L (5-40) 08/08/19 05:16 ALT 10 units/L (7-56) 08/08/19 05:16 Alkaline Phosphatase 71 units/L (35-129) 08/08/19 05:16 Total Protein 6.2 g/dL (6.3-8.2) L 08/08/19 05:16 Albumin 3.4 g/dL (3.9-5) L 08/08/19 05:16 Albumin/Globulin Ratio 1.2 % 08/08/19 05:16 Lipase 11 units/L (13-60) L 08/05/19 15:37 Vitamin B12 451.3 pg/mL (211-911) 08/06/19 20:28 HCG, Qual Negative (Negative) 08/05/19 15:42 Urine Color Straw (Yellow) 08/05/19 Unknown Urine Turbidity Clear (Clear) 08/05/19 Unknown Urine pH 8.0 (5.0-7.0) H 08/05/19 Unknown Ur Specific [place] 1.010 (1.003-1.030) 08/05/19 Unknown Urine Protein <15 mg/dl mg/dL (Negative) 08/05/19 Unknown Urine Glucose (UA) Neg mg/dL (Negative) 08/05/19 Unknown Urine Ketones 20 mg/dL (Negative) 08/05/19 Unknown Urine Blood Neg (Negative) 08/05/19 Unknown Urine Nitrite Neg (Negative) 08/05/19 Unknown Urine Bilirubin Neg (Negative) 08/05/19 Unknown Urine Urobilinogen < 2.0 mg/dL (<2.0) 08/05/19 Unknown Ur Leukocyte Esterase Neg (Negative) 08/05/19 Unknown Urine WBC (Auto) < 1.0 /HPF (0.0-6.0) 08/05/19 Unknown Urine RBC (Auto) 2.0 /HPF (0.0-6.0) 08/05/19 Unknown U Epithel Cells (Auto) 1.0 /HPF (0-13.0) 08/05/19 Unknown Urine Mucus Few /HPF 08/05/19 Unknown Active Medications - Current Medications Current Medications: Generic Name Dose Route Start Last Admin Trade Name Freq PRN Reason Stop Dose Admin Acetaminophen 650 mg 08/06/19 20:02 Tylenol PO Q4H PRN Fever >101 Acetaminophen/Butalbital/Caffeine 1 tab 08/06/19 20:02 Fioricet PO Q4H PRN Headache Carvedilol 25 mg 08/06/19 22:00 08/07/19 21:18 Coreg PO 25 mg Q12HR KAT Administration Chlorthalidone 25 mg 08/06/19 21:00 08/07/19 10:30 Thalitone PO 25 mg QDAY KAT Administration Gabapentin 100 mg 08/06/19 21:00 08/08/19 10:13 Gabapentin PO 100 mg QDAY KAT Administration Hydralazine HCl 5 mg 08/05/19 21:32 Apresoline IV Q6HR PRN blood pressure Hydromorphone HCl 1 mg 08/05/19 20:28 08/08/19 09:12 Dilaudid IV 1 mg Q3H PRN Administration Pain , Severe (7-10) Potassium Chloride/Dextrose/Sod Cl 20 meq in 1,000 mls @ 100 mls/hr 08/05/19 21:00 08/07/19 15:56 D5w/0.45% Nacl/Kcl 20 Meq IV 100 mls/hr DIRECT KAT Administration Loperamide HCl 4 mg 08/06/19 22:00 08/07/19 21:18 Imodium PO Not Given QID KAT Ondansetron HCl 4 mg 08/05/19 20:28 08/08/19 01:55 Zofran IV 4 mg Q3H PRN Administration Nausea And Vomiting Pantoprazole Sodium 40 mg 08/08/19 10:00 08/08/19 10:13 Protonix PO 40 mg BID KAT Administration Sodium Chloride 10 ml 08/05/19 22:00 08/07/19 22:52 Sodium Chloride Flush Syringe 10 Ml IV 10 ml BID KAT Administration Sodium Chloride 10 ml 08/05/19 20:28 Sodium Chloride Flush Syringe 10 Ml IV PRN PRN LINE FLUSH Venlafaxine HCl 75 mg 08/06/19 21:00 08/07/19 10:30 Effexor Xr PO 75 mg QDAY KAT Administration Nutrition/Malnutrition Assess - Dietary Evaluation Nutrition/Malnutrition Findings: Nutrition Notes Start: 08/06/19 13:56 Freq: Status: Active Protocol: Document 08/06/19 13:56 NED (Rec: 08/06/19 14:18 ORJORDYN SRW- [email or web address]) Nutrition Notes Need for Assessment generated from: fisher diving,MST Initial or Follow up Assessment Current Diagnosis Hypertension Other Pertinent Diagnosis Acute gastritis, peripheral neuropathy Current Diet Cl liq Labs/Tests K 2.5 Pertinent Medications Protonix, D5 1/2NS + 20mEq KCl at 100ml/hr Height 5 ft 1.2 in Weight 119.748 kg [place] Body Weight (kg) 48.18 BMI 49.5 Intake Prior to Admission Poor Weight change and time frame Pt unsure of UBW, but says she has been losing wt Weight Status Morbidly Obese Subjective/Other Information Pt screened for malnutrition risk (wt loss, poor appetite). She was admitted with abdominal pains and vomiting. Last PO intake of solid foods was 08/04/19. She is tolerating cl liq diet and wants to try clear ONS. She reports a milk allergy. Pt had an ileostomy reversal this past May. She says ileostomy was placed sec to bowel perforation during a surgical procedure. Pt reports difficulty digesting most vegetables and can only tolerate chicken. Burn Absent Trauma Absent GI Symptoms Vomiting Food Allergy Yes Current % PO Poor (25-49%) Minimum of two criteria No #1 Nutrition Diagnosis Inadequate oral intake Etiology GI dysfunction As Evidenced by Signs and Symptoms pt only able to tolerate cl liq diet at this time; cl diet does not provide enough pro to meet needs Is patient on ventilator? No Is Patient Ambulatory and/or Out of Bed Yes REE-([facility]-ambulatory/OOB) [ 2324.452 NUTR.MSJOOB] Kcal/Kg value to use for calculation 14 Approximate Energy Requirements Using 1676 kcal/Kg Calculation Used for Recommendations Kcal/kg Additional Notes Pro needs 0.8-1g/kg adjBW: 67- 84g/day Fluid needs 1ml/kcal Nutrition Intervention Change Diet Order: Advance diet as tolerated Add Supplement/Snack (indicate name/kcal Ensure Clear TID /protein ) Provides kCal: 720 Provides Protein (gm) 24 Goal #1 PO tolerance Goal #2 Diet advancement to meet nutrient needs as best possible Anticipated Discharge Needs: None identified at this time Follow-Up By: 08/08/19 Additional Comments F/U: diet advancement, intakes (meals/ONS)
[2019-08-08] MEDS: VENLAFAXINE XR 75 MG CAP PO SCH (11:57)
[2019-08-08] MEDS: CHLORTHALIDONE 25 MG TAB PO SCH (11:57)
[2019-08-08] MEDS: LOPERAMIDE 2 MG CAP PO SCH ×4 (11:58→21:50)
[2019-08-08] MEDS: D5W/0.45% NACL/KCL 20 MEQ 20 MEQ/1,000 ML BAG IV SCH (13:26)
--- NOTE | 2019-08-08 16:40 | Gastroenterology Consultation ---
History of Present Illness - Reason for Consult Consult date: 08/08/19 abdominal pain Requesting physician: LOUIS RITTER - History of Present Illness This is a 43 yo female with complicated abdominal surgical hx due to complication during an elective hysterectomy admitted for abdominal pain. GI consulted for evaluation for persistent abdominal pain. She had bowel injury during hysterectomy leading to ileostomy in 08/2018 in [place]. She also had HIDA scan, which was abnormal and ended up having cholecystostomy tube placed. Since then, she had reversal of ileostomy and cholecystectomy in 05/2019 at [place]. She has chronic abdominal pain but on Tuesday, she had acute worsening with mid abdominal pain and LUQ abdominal pain associated with nausea/vomiting. No change in bowel habits, blood in the stool, or melena. Stools have been loose since the surgery. CT a/p without any acute process. Medication list reviewed. Past History Past Medical History: hypertension Past Surgical History: cholecystectomy, bowel surgery Medications and Allergies Allergies Allergy/AdvReac Type Severity Reaction Status Date / Time latex Allergy Unknown Verified 11/17/18 14:17 lisinopril AdvReac cough Verified 10/22/18 17:36 sea Allergy Severe Angioedema Uncoded 10/23/18 11:10 Home Medications Medication Instructions Recorded Confirmed Last Taken Type Acetaminophen [Acetaminophen TAB] 650 mg PO Q4H PRN #15 tablet 10/25/18 08/05/19 Unknown Rx Butalb/Acetamin/Caff 50-325-40 1 tab PO Q4H PRN #10 tablet 10/25/18 08/05/19 Unknown Rx [Fioricet 50-325-40] Famotidine [Pepcid] 20 mg PO BID #20 tablet 10/25/18 08/05/19 Unknown Rx Gabapentin 100 mg PO QDAY #30 capsule 10/25/18 08/05/19 Unknown Rx Venlafaxine Xr [Effexor XR] 75 mg PO QDAY #30 capsule 10/25/18 08/05/19 Unknown Rx amLODIPine 10 mg PO DAILY #30 tablet 10/25/18 08/05/19 Unknown Rx carvediloL [Coreg] 25 mg PO Q12HR #60 tablet 10/25/18 08/05/19 Unknown Rx Chlorthalidone [Thalitone] 25 mg PO QDAY #30 tablet 11/09/18 08/05/19 Unknown Rx Loperamide [Imodium] 4 mg PO QID #120 capsule 11/09/18 08/05/19 Unknown Rx Losartan [Cozaar] 50 mg PO QDAY #30 tablet 11/09/18 08/05/19 Unknown Rx Active Meds: Active Medications Acetaminophen (Tylenol) 650 mg PO Q4H PRN PRN Reason: Fever >101 Acetaminophen/Butalbital/Caffeine (Fioricet) 1 tab PO Q4H PRN PRN Reason: Headache Carvedilol (Coreg) 25 mg PO Q12HR [facility] Last Admin: 08/08/19 10:00 Dose: Not Given Documented by: Chlorthalidone (Thalitone) 25 mg PO QDAY [facility] Last Admin: 08/08/19 11:57 Dose: 25 mg Documented by: Gabapentin (Gabapentin) 100 mg PO QDAY [facility] Last Admin: 08/08/19 10:13 Dose: 100 mg Documented by: Hydralazine HCl (Apresoline) 5 mg IV Q6HR PRN PRN Reason: blood pressure Hydromorphone HCl (Dilaudid) 1 mg IV Q3H PRN PRN Reason: Pain , Severe (7-10) Last Admin: 08/08/19 13:22 Dose: 1 mg Documented by: Potassium Chloride/Dextrose/Sod Cl (D5w/0.45% Nacl/Kcl 20 Meq) 20 meq in 1,000 mls @ 100 mls/hr IV DIRECT [facility] Last Admin: 08/08/19 13:26 Dose: 100 mls/hr Documented by: Loperamide HCl (Imodium) 4 mg PO QID [facility] Last Admin: 08/08/19 11:58 Dose: Not Given Documented by: Ondansetron HCl (Zofran) 4 mg IV Q3H PRN PRN Reason: Nausea And Vomiting Last Admin: 08/08/19 01:55 Dose: 4 mg Documented by: Pantoprazole Sodium (Protonix) 40 mg PO BID [facility] Last Admin: 08/08/19 10:13 Dose: 40 mg Documented by: Simethicone (Mylicon) 80 mg PO Q6H PRN PRN Reason: Gas pain Last Admin: 08/08/19 13:49 Dose: 80 mg Documented by: Sodium Chloride (Sodium Chloride Flush Syringe 10 Ml) 10 ml IV BID [facility] Last Admin: 08/08/19 11:58 Dose: 10 ml Documented by: Sodium Chloride (Sodium Chloride Flush Syringe 10 Ml) 10 ml IV PRN PRN PRN Reason: LINE FLUSH Venlafaxine HCl (Effexor Xr) 75 mg PO QDAY KAT Last Admin: 08/08/19 11:57 Dose: 75 mg Documented by: Review of Systems - Review of Systems All systems: negative Cardiovascular: no chest pain Gastrointestinal: abdominal pain, nausea, vomiting, diarrhea Exam - Constitutional Vital Signs: Temp Pulse Resp BP Pulse Ox 98.5 F 55 L 18 155/82 97 08/08/19 12:04 08/08/19 12:04 08/08/19 12:04 08/08/19 12:04 08/08/19 12:04 General appearance: no acute distress - EENT Eyes: EOM intact - Neck Neck: supple - Respiratory Respiratory effort: normal - Cardiovascular Rhythm: regular Heart Sounds: Present: S1 & S2 - Gastrointestinal General gastrointestinal: Present: soft, tender, non-distended, normal bowel sounds, other (surgical scar) - Integumentary Integumentary: Present: clear, warm - Neurologic Neurological: alert and oriented x3 - Labs CBC & Chem 7: 08/08/19 05:16 08/08/19 05:16 Lab Results: Laboratory Results - last 24 hr 08/08/19 08/08/19 05:16 05:16 WBC 4.5 RBC 3.80 Hgb 11.7 Hct 35.6 MCV 94 MCH 31 MCHC 33 RDW 15.0 Plt Count 225 Lymph % (Auto) 31.5 [place] % (Auto) 13.5 H Eos % (Auto) 4.1 Baso % (Auto) 0.4 Lymph # 1.4 [place] # 0.6 Eos # 0.2 Baso # 0.0 Seg Neutrophils % 50.5 Seg Neutrophils # 2.3 Sodium 139 Potassium 3.2 L D Chloride 99.3 Carbon Dioxide 29 Anion Gap 14 BUN 3 L Creatinine 0.6 L Estimated GFR > 60 BUN/Creatinine Ratio 5 Glucose 101 H Calcium 8.7 Total Bilirubin 0.30 AST 11 ALT 10 Alkaline Phosphatase 71 Total Protein 6.2 L Albumin 3.4 L Albumin/Globulin Ratio 1.2 Assessment and Plan This is a 43 yo female with complicated abdominal surgical hx due to complication during an elective hysterectomy admitted for abdominal pain. GI consulted for evaluation for persistent abdominal pain. # LUQ abdominal pain # Chronic mid abdominal pain # H/o complicated abdominal surgical hx with bowel injury from elective hysterectomy leading to ileostomy and since reversed. - CT scan without signs of acute process. - h/o cholecystectomy - possible PUD, gastritis. Rec - will plan for EGD tomorrow. - NPO MN. - continue with protonix.
[2019-08-09] MEDS: HYDROmorphone 1 MG/1 ML INJ IV PRN ×5 (03:15→19:00)
[2019-08-09] MEDS: D5W/0.45% NACL/KCL 20 MEQ 20 MEQ/1,000 ML BAG IV SCH (03:15)
[2019-08-09 10:23] LABS: Basophils % (Auto) 0.4 % (0.0-1.8); Eosinophils # (Auto) 0.2 K/mm3 (0.0-0.4); Eosinophils % (Auto) 4.8 % (0.0-4.3); Hematocrit 34.9 % (30.3-42.9); Hemoglobin 11.5 gm/dl (10.1-14.3); Lymphocytes # (Auto) 1.1 K/mm3 (1.2-5.4); Mean Corpuscular HGB Conc 33 % (30-34); Mean Corpuscular Volume 94 fl (79-97); Monocytes # (Auto) 0.5 K/mm3 (0.0-0.8); Platelet Count 209 K/mm3 (140-440); Red Blood Count 3.72 M/mm3 (3.65-5.03); Red Cell Distribution Width 14.4 % (13.2-15.2)
[2019-08-09 10:46] LABS: Alanine Aminotransferase 9 units/L (7-56); Albumin 3.3 g/dL (3.9-5); BUN/Creatinine Ratio 3; Blood Urea Nitrogen 2 mg/dL (7-17); Calcium 8.7 mg/dL (8.4-10.2); Hemolysis Index 12
--- NOTE | 2019-08-09 10:47 | Discharge Summary ---
Providers - Providers Date of Admission: 08/05/19 18:35 Date of discharge: 08/09/19 Attending physician: LOUIS RITTER 08/08/19 09:28 Consult to Physician [CONS] Routine Comment: Consulting Provider: CHANTALE CLEMENT Physician Instructions: Reason For Exam: abd pain Primary care physician: [employer] Hospitalization Reason for admission: abd pain Condition: Stable Hospital course: 43 yo female with complicated abdominal surgical hx due to complication during an elective hysterectomy admitted for abdominal pain. She had bowel injury during hysterectomy leading to ileostomy in 08/2018 in [place]. She also had HIDA scan, which was abnormal and ended up having cholecystostomy tube placed. Since then, she had reversal of ileostomy and cholecystectomy in 05/2019 at [place]. She has chronic abdominal pain but on Tuesday, she had acute worsening with mid abdominal pain and LUQ abdominal pain associated with nausea/vomiting. No change in bowel habits, blood in the stool, or melena. On this admission, CT a/p without any acute process. The patient was admitted with diagnosis of abdominal pain hyperkalemia. GI consulted for evaluation for persistent abdominal pain. The patient received IV fluids, IV Protonix and medications for pain control. The patient's potassium was repleted. GI to perform EGD today and if within normal limits patient will be discharged home with prescription for Protonix. Dedicated discharge time 32 minutes. Disposition: DC-01 TO HOME OR SELFCARE Time spent for discharge: 32 - Discharge Diagnoses (1) Abdominal pain Status: Acute Qualifiers: Abdominal location: generalized Qualified Code(s): R10.84 - Generalized abdominal pain (2) Acute gastritis Status: Acute Qualifiers: Gastritis bleeding: without bleeding (3) Hypokalemia Status: Acute (4) Hypertension Status: Chronic Qualifiers: Hypertension type: essential hypertension Qualified Code(s): I10 - Essential (primary) hypertension Core Measure Documentation - Palliative Care Palliative Care/ Comfort Measures: Not Applicable - Core Measures Any of the following diagnoses?: none Exam - Constitutional Vitals: Temp Pulse Resp BP Pulse Ox 98.1 F 51 L 18 161/71 95 08/09/19 05:58 08/09/19 05:58 08/09/19 06:10 08/08/19 23:50 08/09/19 05:58 General appearance: Present: no acute distress, well-nourished - EENT Eyes: Present: PERRL ENT: hearing intact, clear oral mucosa - Neck Neck: Present: supple, normal ROM - Respiratory Respiratory effort: normal Respiratory: bilateral: CTA - Cardiovascular Heart Sounds: Present: S1 & S2. Absent: rub, click - Extremities Extremities: pulses symmetrical, No edema Peripheral Pulses: within normal limits - Abdominal General gastrointestinal: Present: soft, non-tender, non-distended, normal bowel sounds Female genitourinary: Present: normal - Integumentary Integumentary: Present: clear, warm, dry - Musculoskeletal Musculoskeletal: gait normal, strength equal bilaterally - Psychiatric Psychiatric: appropriate mood/affect, intact judgment & insight - Neurologic Neurologic: CNII-XII intact, moves all extremities Plan Activity: advance as tolerated Weight Bearing Status: Weight Bear as Tolerated Diet: regular Follow up with: PRIMARY CAREMD [Primary Care Provider] - 3-5 Days MIN,TRACI NARVAEZ MD [Staff Physician] - 7 Days Forms: Accompanied Note Prescriptions: amLODIPine 10 mg PO DAILY #30 tablet carvediloL [Coreg] 25 mg PO Q12HR #60 tablet Losartan [Cozaar] 50 mg PO QDAY #30 tablet Butalb/Acetamin/Caff 50-325-40 [Fioricet 50-325-40] 1 tab PO Q4H PRN #10 tablet PRN Reason: Headache Gabapentin 100 mg PO QDAY #30 capsule Pantoprazole [Protonix TAB] 40 mg PO DAILY #30 tablet Chlorthalidone [Thalitone] 25 mg PO QDAY #30 tablet
[2019-08-09] MEDS: VENLAFAXINE XR 75 MG CAP PO SCH (10:52)
[2019-08-09] MEDS: GABAPENTIN 100 MG CAP PO SCH (10:52)
[2019-08-09] MEDS: carvediloL 25 MG TAB PO SCH (10:52)
[2019-08-09] MEDS: CHLORTHALIDONE 25 MG TAB PO SCH ×2 (10:53→18:00)
[2019-08-09] MEDS: LOPERAMIDE 2 MG CAP PO SCH ×2 (10:53→14:22)
[2019-08-09] MEDS: PANTOPRAZOLE 40 MG TAB PO SCH (10:53)
[2019-08-09] MEDS ORDERED: LIDOCAINE MPF (2%) 20 MG/1 ML VIAL 5 ML ONE (14:30)
[2019-08-09] MEDS ORDERED: SODIUM CHLORIDE 0.9% 1000 ML 1,000 ML ONE (14:30)
--- NOTE | 2019-08-09 15:19 | Anesthesia Consultation ---
Anesthesia Consult and Med Hx Date of service: 08/09/19 - Airway Anesthetic Teeth Evaluation: Good ROM Head & Neck: Adequate Mental/Hyoid Distance: Adequate Mallampati Class: Class III Intubation Access Assessment: Possibly Difficult - Pulmonary Exam CTA: Yes - Cardiac Exam Cardiac Exam: RRR - Pre-Operative Health Status ASA Pre-Surgery Classification: ASA3 Proposed Anesthetic Plan: MAC - Pulmonary Hx Smoking: No Hx Respiratory Symptoms: No - Cardiovascular System Hx Hypertension: Yes Hx Heart Attack/AMI: No - Central Nervous System CVA: No - Gastrointestinal Hx Ulcer: Yes (chronic abdominal pain) Hx Gastroesophageal Reflux Disease: Yes - Endocrine Hx Renal Disease: Yes (hx renal failure now resolved) Hx End Stage Renal Disease: No Hx Liver Disease: No Hx Insulin Dependent Diabetes: No Hx Non-Insulin Dependent Diabetes: No Hx Thyroid Disease: No - Hematic Hx Anemia: Yes Hx Sickle Cell Disease: No - Other Systems Hx Obesity: Yes (BMI 54) - Additional Comments Anesthesia Medical History Comments: No vomiting in several days.
--- NOTE | 2019-08-09 15:19 | Anesthesia Day of Surgery ---
Anesthesia Day of Surgery - Day of Surgery Patient Examined: Yes Patient H&P Reviewed: Yes Patient is NPO: Yes
[2019-08-09] MEDS ORDERED: PROPOFOL 200 MG/20 ML VIAL IV ONE ×2 (15:53)
[2019-08-09] MEDS ORDERED: hydrALAZINE 20 MG/1 ML INJ IV ONE (16:30)
--- NOTE | 2019-08-09 16:31 | Operative Report ---
Operative Report Operative Report: Date:08/09/2019 Pre procedure diagnosis:LUQ abdominal pain Post procedure diagnosis:gastritis Procedure:EGD with biopsies Endoscopist: Cristofer Street MD Medications: Per anesthesia- see separate records for details Complications:none Estimated blood loss: None After careful discussion of the nature and purpose of the procedure, details of the technique, risks, benefits and alternatives, the patient gave consent. The patient was placed in the left lateral decubitus position and medicated by anesthesia- see separate records for details. The tip of the olympus video upper scope was passed per orum under direct view through the mouth and into the esophagus, stomach and duodenum. The scope was advanced to the second part of duodenumwithout difficulty. Findings 1. Normal appearing small bowel mucosa in the examined part of duodenum. 2. Mild erythematous mucosa in the antrum. Biopsies were obtained from the antrum and the gastric body. 3. Retroflexion view of the cardiac, fundus, and body revealed normal findings. 4. A small hiatal hernia. Z-line at 40 cm. 5. Normal esophagus exam. The procedure was well tolerated and the patient was observed in the GI recovery unit. Plan: 1. Resume diet. 2. Continue with PPI. 3. Ok for discharge per GI standpoint if tolerating diet. 4. Will sign off. Cristofer Domínguez (Sola) MD [facility]
[2019-08-09] MEDS ORDERED: hydrALAZINE 20 MG/1 ML INJ ONE (16:33)
[2019-08-09 17:15] VITALS: BP 163/80
--- NOTE | 2019-08-09 17:22 | Post Anesthesia Evaluation ---
- Post Anesthesia Evaluation Patient Participated: Yes Airway Patent: Yes Stable Respiratory Function: Yes Nausea/Vomiting: No Temp > 96.8F: Yes Pain Manageable: Yes Adequeate Hydration: Yes Anesthesia Complications: No
== END 2019-08-09 19:30 | disposition home or self-care (01) | DRG 392 ==
LOC: ED 13:59 → 3A 18:35
PROVIDERS: ADMIT Internal Medicine; ATTEND Hospitalist
PROC: 0DB68ZX Excision of Stomach, Via Natural or Artificial Opening Endoscopic, Diagnostic (ICD-10-PCS; principal; 2019-08-09)
DX: K29.70 Gastritis, unspecified, without bleeding (principal); Z68.43 Body mass index [BMI] 50.0-59.9, adult; E87.6 Hypokalemia; I10 Essential (primary) hypertension; K21.9 Gastro-esophageal reflux disease without esophagitis; E66.9 Obesity, unspecified; K44.9 Diaphragmatic hernia without obstruction or gangrene; K27.9 Peptic ulcer, site unspecified, unspecified as acute or chronic, without hemorrhage or perforation; E83.42 Hypomagnesemia; G62.9 Polyneuropathy, unspecified; G43.909 Migraine, unspecified, not intractable, without status migrainosus; Z90.710 Acquired absence of both cervix and uterus; Z82.49 Family history of ischemic heart disease and other diseases of the circulatory system; Z90.49 Acquired absence of other specified parts of digestive tract; Z91.040 Latex allergy status; Z79.899 Other long term (current) drug therapy
CPT/HCPCS: 36415; 74177; 80048; 80053; 80076; 81001; 82270; 82607; 83036; 83690; 83735; 84100; 84132; 84703; 85025; 85027; 87116; 88305; 88342; 93005; 93010; G0378; C9113; J0360; J1170; J2270; J2405; J2704; J3475; J3480; J7030; Q9967

== ENCOUNTER 2020-06-04 16:31 | Emergency (ER) | payer MEDICAID ==
[2020-06-04] MEDS ORDERED: diphenhydrAMINE 50 MG/ML VIAL IV ONE (20:24)
[2020-06-04] MEDS ORDERED: METOCLOPRAMIDE 10 MG/2 ML INJ IV ONE (20:24)
[2020-06-04] MEDS ORDERED: dexAMETHasone 20 MG/5 ML VIAL IV ONE (20:24)
[2020-06-04] MEDS ORDERED: SODIUM CHLORIDE 0.9% 1000 ML 1,000 ML IV ONE ×2 (20:24→22:00)
--- NOTE | 2020-06-04 20:28 | Emergency Department Report ---
ED General Adult HPI - General Chief complaint: Headache Stated complaint: HEADACHE Time Seen by Provider: 06/04/20 19:55 Source: patient Mode of arrival: Ambulatory Limitations: No Limitations - History of Present Illness Initial comments: 44-year-old -[place] female patient with history of hypertension and migraines presents with complaint of right-sided migraine and dizziness x3 days. Patient states she is currently following with a neurologist, however he was unable to fit her in to see him. She states she has chronic dizziness that she describes as lightheadedness and has had multiple syncopal episodes in the past. She denies any current syncopal episode and states that her neurologist has not figured out the cause sedation at this point. She denies any vision changes, numbness/tingling/weakness in her limbs, confusion, memory loss, difficulty with speech/ambulation, or history of CVA/WA. Patient also denies any chest pain or shortness of breath. She describes her headache as throbbing and rates it as a 6/10 in severity. She denies thunderclap onset. She does report some nausea and photophobia, but denies any vomiting, abdominal pain, fever, or neck pain/stiffness. She reports she normally takes Tylenol with codeine for her migraines and that is not currently helping. 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 - Related Data Previous Rx's Medication Instructions Recorded Last Taken Type Venlafaxine Xr [Effexor XR] 75 mg PO QDAY #30 capsule 10/25/18 Unknown Rx Loperamide [Imodium] 4 mg PO QID #120 capsule 11/09/18 Unknown Rx Butalb/Acetamin/Caff 50-325-40 1 tab PO Q4H PRN #10 tablet 08/09/19 Unknown Rx [Fioricet 50-325-40] Chlorthalidone [Thalitone] 25 mg PO QDAY #30 tablet 08/09/19 Unknown Rx Gabapentin 100 mg PO QDAY #30 capsule 08/09/19 Unknown Rx Losartan [Cozaar] 50 mg PO QDAY #30 tablet 08/09/19 Unknown Rx Pantoprazole [Protonix TAB] 40 mg PO DAILY #30 tablet 08/09/19 Unknown Rx amLODIPine 10 mg PO DAILY #30 tablet 08/09/19 Unknown Rx carvediloL [Coreg] 25 mg PO Q12HR #60 tablet 08/09/19 Unknown Rx Butalb/Acetaminophen/Caffeine 1 cap PO Q8HR PRN #6 cap 06/04/20 Unknown Rx [Fioricet 50-300-40 mg CAP] Allergies Allergy/AdvReac Type Severity Reaction Status Date / Time latex Allergy Unknown Verified 08/09/19 15:28 lisinopril AdvReac cough Verified 08/09/19 15:28 sea Allergy Severe Angioedema Uncoded 10/23/18 11:10 ED Review of Systems ROS: Stated complaint: HEADACHE Other details as noted in HPI Constitutional: denies: chills, diaphoresis, fever, malaise, weakness ENT: denies: throat pain, hearing loss Respiratory: denies: cough, shortness of breath Cardiovascular: denies: chest pain, palpitations, syncope Gastrointestinal: denies: abdominal pain, nausea, vomiting Genitourinary: denies: urgency, dysuria, frequency, hematuria Musculoskeletal: denies: back pain Skin: denies: change in color Neurological: headache. denies: weakness, numbness, paresthesias, confusion, abnormal gait ED Past Medical Hx - Past Medical History Previous Medical History?: Yes Hx Hypertension: Yes Hx CVA: No Hx Heart Attack/AMI: No Hx Congestive Heart Failure: No Hx Diabetes: No Hx Deep Vein Thrombosis: No Hx Pulmonary Embolism: No Hx GERD: Yes Hx Liver Disease: No Hx Renal Disease: Yes (hx renal failure now resolved) Hx Sickle Cell Disease: No Hx Arthritis: No Hx Headaches / Migraines: Yes Hx Seizures: No Hx Kidney Stones: No Hx Psychiatric Treatment: No Hx Asthma: No Hx COPD: No Hx Tuberculosis: No Hx Dementia: No Hx HIV: No - Surgical History Past Surgical History?: Yes Hx Coronary Stent: No Hx Open Heart Surgery: No Hx Pacemaker: No Hx Internal Defibrillator: No Hx Cholecystectomy: Yes (current) Hx Appendectomy: No Hx Breast Surgery: No Additional Surgical History: 4 . 1999, 2008, 2015, 2016. left bunion removal. 1990, Hysterectomy with complication, bowel leakage. August 2018. Was D/C from [facility] 10/21/18 - Social History Smoking Status: Never Smoker - Medications Home Medications: Home Medications Medication Instructions Recorded Confirmed Last Taken Type Venlafaxine Xr [Effexor XR] 75 mg PO QDAY #30 capsule 10/25/18 08/05/19 Unknown Rx Loperamide [Imodium] 4 mg PO QID #120 capsule 11/09/18 08/05/19 Unknown Rx Butalb/Acetamin/Caff 50-325-40 1 tab PO Q4H PRN #10 tablet 08/09/19 Unknown Rx [Fioricet 50-325-40] Chlorthalidone [Thalitone] 25 mg PO QDAY #30 tablet 08/09/19 Unknown Rx Gabapentin 100 mg PO QDAY #30 capsule 08/09/19 Unknown Rx Losartan [Cozaar] 50 mg PO QDAY #30 tablet 08/09/19 Unknown Rx Pantoprazole [Protonix TAB] 40 mg PO DAILY #30 tablet 08/09/19 Unknown Rx amLODIPine 10 mg PO DAILY #30 tablet 08/09/19 Unknown Rx carvediloL [Coreg] 25 mg PO Q12HR #60 tablet 08/09/19 Unknown Rx Butalb/Acetaminophen/Caffeine 1 cap PO Q8HR PRN #6 cap 06/04/20 Unknown Rx [Fioricet 50-300-40 mg CAP] ED Physical Exam - General Limitations: No Limitations General appearance: alert, in no apparent distress - Head Head exam: Present: atraumatic - Eye Eye exam: Present: normal appearance, PERRL, EOMI. Absent: scleral icterus - ENT ENT exam: Present: mucous membranes moist - Neck Neck exam: Present: normal inspection, full ROM - Respiratory Respiratory exam: Present: normal lung sounds bilaterally. Absent: respiratory distress - Cardiovascular Cardiovascular Exam: Present: regular rate, normal rhythm. Absent: systolic murmur, diastolic murmur, rubs, gallop - GI/Abdominal GI/Abdominal exam: Present: soft. Absent: tenderness - Extremities Exam Extremities exam: Present: normal inspection, full ROM - Neurological Exam Neurological exam: Present: alert, oriented X3, CN II-XII intact, normal gait. Absent: motor sensory deficit - Expanded Neurological Exam Expanded Cerebellar function: Finger to Nose: Normal, [place]berg: Normal Motor strength exam: RUE: 5, LUE: 5, RLE: 5, LLE: 5 - Psychiatric Psychiatric exam: Present: normal affect, normal mood - Skin Skin exam: Present: warm, dry, intact, normal color. Absent: rash ED Course Vital Signs 06/04/20 06/04/20 16:35 21:25 Temperature 98.3 F Pulse Rate 62 57 L Respiratory 16 Rate Blood Pressure 146/72 Blood Pressure 161/126 [Right] O2 Sat by Pulse 97 99 Oximetry ED Medical Decision Making - Lab Data Result diagrams: 06/04/20 20:42 06/04/20 20:42 Lab Results 06/04/20 06/04/20 Range/Units 20:42 20:42 WBC 5.8 (4.5-11.0) K/mm3 RBC 4.14 (3.65-5.03) M/mm3 Hgb 13.2 (10.1-14.3) gm/dl Hct 39.4 (30.3-42.9) % MCV 95 (79-97) fl MCH 32 (28-32) pg MCHC 33 (30-34) % RDW 13.0 L (13.2-15.2) % Plt Count 222 (140-440) K/mm3 Lymph % (Auto) 25.7 (13.4-35.0) % [place] % (Auto) 9.1 H (0.0-7.3) % Eos % (Auto) 2.1 (0.0-4.3) % Baso % (Auto) 0.7 (0.0-1.8) % Lymph # 1.5 (1.2-5.4) K/mm3 [place] # 0.5 (0.0-0.8) K/mm3 Eos # 0.1 (0.0-0.4) K/mm3 Baso # 0.0 (0.0-0.1) K/mm3 Seg Neutrophils % 62.4 (40.0-70.0) % Seg Neutrophils # 3.6 (1.8-7.7) K/mm3 Sodium 133 L (137-145) mmol/L Potassium 3.3 L (3.6-5.0) mmol/L Chloride 97.0 L (98-107) mmol/L Carbon Dioxide 25 (22-30) mmol/L Anion Gap 14 mmol/L BUN 20 H (7-17) mg/dL Creatinine 0.8 (0.6-1.2) mg/dL Estimated GFR > 60 ml/min BUN/Creatinine Ratio 25 % Glucose 88 (65-100) mg/dL Calcium 9.2 (8.4-10.2) mg/dL Troponin T < 0.010 (0.00-0.029) ng/mL - EKG Data EKG shows normal: sinus rhythm Rate: normal - Medical Decision Making 44-year-old -[place] female patient with history of hypertension and migraines presents with complaint of right-sided migraine and dizziness x3 days. Patient states she is currently following with a neurologist, however he was unable to fit her in to see him. She states she has chronic dizziness that she describes as lightheadedness and has had multiple syncopal episodes in the past. She denies any current syncopal episode and states that her neurologist has not figured out the cause sedation at this point. She denies any vision changes, numbness/tingling/weakness in her limbs, confusion, memory loss, difficulty with speech/ambulation, or history of CVA/WA. Patient also denies any chest pain or shortness of breath. She describes her headache as throbbing and rates it as a 6/10 in severity. She denies thunderclap onset. She does report some nausea and photophobia, but denies any vomiting, abdominal pain, fever, or neck pain/stiffness. She reports she normally takes Tylenol with codeine for her migraines and that is not currently helping. 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 Trop and CBC are normal. Neuro exam is normal. Pt states dizziness improved also. Patient was ambulated in room post fluids-steady gait noted. She states minimal dizziness. She is well appearing, are vitals normal, and she is stable for d/c home. Fioricet prescription given. Recommend f/u with her neurologist and PCP. Strict return precautions were discussed in detail with pt who verbalizes understanding. Critical care attestation.: If time is entered above; I have spent that time in minutes in the direct care of this critically ill patient, excluding procedure time. ED Disposition Clinical Impression: Migraine headache without aura Qualifiers: Status migrainosus presence: without status migrainosus Intractability: not intractable Qualified Code(s): G43.009 - Migraine without aura, not intractable, without status migrainosus Disposition: DC- TO HOME OR SELFCARE Is pt being admited?: No Condition: Stable Instructions: Migraine Headache (ED) Prescriptions: Butalb/Acetaminophen/Caffeine [Fioricet 50-300-40 mg CAP] 1 cap PO Q8HR PRN #6 cap PRN Reason: Migraine Headache Referrals: PAT TAMAYO MD [Primary Care Provider] - 3-5 Days
[2020-06-04] MEDS ORDERED: hydrALAZINE 25 MG TAB PO ONE (20:30)
[2020-06-04 21:18] LABS: Basophils % (Auto) 0.7 % (0.0-1.8); Eosinophils # (Auto) 0.1 K/mm3 (0.0-0.4); Eosinophils % (Auto) 2.1 % (0.0-4.3); Hematocrit 39.4 % (30.3-42.9); Hemoglobin 13.2 gm/dl (10.1-14.3); Lymphocytes # (Auto) 1.5 K/mm3 (1.2-5.4); Lymphocytes % (Auto) 25.7 % (13.4-35.0); Mean Corpuscular HGB Conc 33 % (30-34); Mean Corpuscular Volume 95 fl (79-97); Monocytes # (Auto) 0.5 K/mm3 (0.0-0.8); Monocytes % (Auto) 9.1 % (0.0-7.3); Platelet Count 222 K/mm3 (140-440); Red Blood Count 4.14 M/mm3 (3.65-5.03)
[2020-06-04] MEDS ORDERED: HYDROcodone/ACETAMINOPHEN 5-325 MG TAB PO ONE (21:27)
[2020-06-04 21:28] VITALS: BP 146/72
[2020-06-04 21:29] LABS: BUN/Creatinine Ratio 25; Blood Urea Nitrogen 20 mg/dL (7-17); Calcium 9.2 mg/dL (8.4-10.2); Hemolysis Index 19
[2020-06-04] MEDS ORDERED: POTASSIUM CHLORIDE ER 20 MEQ TAB PO ONE (21:44)
== END 2020-06-04 23:10 | disposition home or self-care (01) ==
LOC: ED 16:31
DX: G43.009 Migraine without aura, not intractable, without status migrainosus (principal); I10 Essential (primary) hypertension; K21.9 Gastro-esophageal reflux disease without esophagitis; Z90.49 Acquired absence of other specified parts of digestive tract; Z90.710 Acquired absence of both cervix and uterus; Z98.890 Other specified postprocedural states; Z79.899 Other long term (current) drug therapy; Z91.040 Latex allergy status; Z88.8 Allergy status to other drugs, medicaments and biological substances
CPT/HCPCS: 36415; 80048; 84484; 85025; 93005; 96361; 96374; 96375; 99283; J1100; J1200; J2765; J7030